=== PATIENT | female | born 1990 | race Caucasian/White ===

== ENCOUNTER 2022-12-21 09:48 | Outpatient (CLI) | payer OTHER, SELFPAY | END 2022-12-21 09:49 | disposition home or self-care (01) | PROVIDERS: PCP Physician Assistant Medical; Visit Provider Registered Nurse | DX: Z01.419 Encounter for gynecological examination (general) (routine) without abnormal findings (principal); Z13.6 Encounter for screening for cardiovascular disorders; Z13.1 Encounter for screening for diabetes mellitus | CPT/HCPCS: 80061; 82947 ==

== ENCOUNTER 2022-12-24 00:30 | Emergency (ER) | payer OTHER, SELFPAY ==
[2022-12-24] VITALS (14 sets, daily range): BP systolic 132–147; BP diastolic 74–110; PULSE 70–85; RESP 16–18; TEMP 36.7; O2SAT 97–100; BMI 22.5
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
== END 2022-12-24 02:50 | disposition home or self-care (01) ==
PROVIDERS: Emergency Provider Family Medicine; PCP Physician Assistant Medical
DX: S09.90XA Unspecified injury of head, initial encounter (principal); S16.1XXA Strain of muscle, fascia and tendon at neck level, initial encounter; V49.00XA Driver injured in collision with unspecified motor vehicles in nontraffic accident, initial encounter
CPT/HCPCS: 70450; 70486; 94761; 99284; 99291

== ENCOUNTER 2023-12-15 17:18 | Emergency (ER) | payer OTHER, SELFPAY ==
[2023-12-15 17:35] VITALS: BP 128/79; PULSE 90; RESP 18; TEMP 37.1; O2SAT 99; BMI 20.8
--- NOTE | 2023-12-15 18:40 | ED.GENADULT ---
HPI - General Adult General Date Seen: 12/15/23 Chief complaint: Chest Pain Stated complaint: would like an EKG Time Seen by Provider: 12/15/23 17:23 Source: patient Mode of arrival: ambulatory Limitations: no limitations History of Present Illness HPI narrative: Patient is a 33-year-old female presenting to the emergency department for multiple complaints. Her main complaint is chest pain and palpitations she has been having for several months now. She feels like it has gotten worse over the past week and half but does admit she stop smoking we had a 3 weeks ago and cigarettes a week and half ago. Today she states she thought it was the worst. She states she has been very anxious and she thinks this could be the cause of her symptoms. Admits she has been with a lot of anxiety but this not on any anxiety medication. She is very concerned she could be having electrolyte abnormalities his she thinks she is losing too much weight. She is afraid she could be developing refeeding syndrome. How states she while on vacation and was exposed to something who has flu. Was concerned about that because she has been having intermittent diarrhea for several months now. Think she should apply on weight over her vacation but actually lost weight. Denies fevers, chills, abdominal pain, headache, dizziness, lightheadedness, weakness, numbness. Related Data Home Medications Medication Instructions Recorded Confirmed cholecalciferol (vitamin D3) 25 25 mcg PO QDAY 06/22/22 12/15/23 mcg (1,000 unit) capsule prenat.vits,toribio,zza-jyhk-yawfq 1 tab PO QDAY 06/22/22 12/15/23 Allergies Allergy/AdvReac Type Severity Reaction Status Date / Time No Known Drug Allergies Allergy Verified 12/15/23 17:34 Review of Systems Status of ROS: Reports: 10 or more systems reviewed and unremarkable except as noted in History and below [facility] Medical History at early stage ?Z34.90 - Encounter for supervision of normal , unspecified, unspecified trimester (ICD-10) Periurethral laceration, delivered, current hospitalization ?O71.5 - Other obstetric injury to pelvic organs (ICD-10) Normal spontaneous vaginal delivery ?O80 - Encounter for full-term uncomplicated delivery (ICD-10) Surgical History History of tonsillectomy ?Z90.89 - Acquired absence of other organs (ICD-10) S/P ACL reconstruction ?Z98.890 - Other specified postprocedural states (ICD-10) Family History Mother High blood pressure High cholesterol Paternal Grandfather High cholesterol Maternal Grandfather Alcohol dependence Social History Smoking Status: Former smoker Second hand tobacco smoke exposure: No How often do you have a drink containing alcohol: never How often do you have six or more drinks on one occasion: Never AUDIT-C Alcohol total score: 0 Non-prescribed substance use: denies use Little interest or pleasure in doing things: not at all Feeling down, depressed, or hopeless: several days Exam Narrative: Exam Narrative: Const: Well-nourished, Well-developed, appears very anxious Eyes: PERRL, no conjunctival injection, and symmetrical lids HENT: Atraumatic external nose and ears. Moist mucous membranes. Neck: Symmetric, trachea midline, No thyromegaly. CVS: RRR, No murmurs or gallops. Peripheral pulses 2+ and equal in all extremities RESP: Unlabored respiratory effort. Clear to auscultation bilaterally. GI: Nontender/Nondistended, No rebound or guarding. MSK:Extremities w/o deformity, Normal Active ROM Skin: Warm, Dry. No rashes or lesions. Neuro: Normal Muscle tone, No focal neurological deficits. Psych: Awake, Alert, & Oriented x3. Appropriate mood and affect. Const: Vital Signs, click to edit/add: Vital Signs - 24 hr 12/15/23 17:35 Temperature 98.8 F Pulse Rate [Pulse Oximeter] 90 Respiratory Rate 18 Blood Pressure [Ri ght Upper Arm] 128/79 Pulse Oximetry 99 Oxygen Delivery Me thod Room Air Course Vital Signs Vital signs: Initial Vital Signs Temperature 98.8 F 12/15/23 17:35 Temperature Source Temporal Artery Scan 12/15/23 17:35 Pulse Rate 90 12/15/23 17:35 Pulse Rhythm Regular 12/15/23 17:35 Respiratory Rate 18 12/15/23 17:35 Blood Pressure 128/79 12/15/23 17:35 Blood Pressure Mean 95 12/15/23 17:35 Blood Pressure Position Sitting 12/15/23 17:35 Pulse Oximetry 99 12/15/23 17:35 Oxygen Delivery Method Room Air 12/15/23 17:35 Vital Signs Temperature 98.8 F 12/15/23 17:35 Pulse Rate 90 12/15/23 17:35 Respiratory Rate 18 12/15/23 17:35 Blood Pressure 128/79 12/15/23 17:35 Pulse Oximetry 99 12/15/23 17:35 Oxygen Delivery Method Room Air 12/15/23 17:35 Temperature 98.8 F 12/15/23 17:35 Pulse Rate 90 12/15/23 17:35 Respiratory Rate 18 12/15/23 17:35 Blood Pressure 128/79 12/15/23 17:35 Pulse Oximetry 99 12/15/23 17:35 Oxygen Delivery Method Room Air 12/15/23 17:35 Medical Decision Making [facility] Narrative Medical decision making narrative: Patient is a 33-year-old female presenting for multiple complaints. I explained to her that she is at low risk for refeeding syndrome and is a healthy weight. Explain to her that to get refeeding syndrome she has the starve herself significantly which she has not been doing per her description of her eating habits. She also does not appear to be too thin. We did do an EKG which showed no concerning abnormalities. She has no history of familial heart disease and explained to her also that she is at low risk for any heart conditions. The symptoms could all be related to her anxiety you which I explained she should get taking care of at her annual appointment with her primary care doctor she is having in 2 weeks. After extensive conversation I had with her explaining everything I also explained that I cannot definitively rule out any of the self we talked about without getting lab work. After giving her time to think of if she wants lab work or not she decided against it since she will be getting lab work done in 2 weeks. I informed her that they typically do not check troponins outpatient and she understands. I explained to her the significance of the troponin test and she is comfortable without doing it at this time. This seems reasonable considering the symptoms have been going on for an extended period of time and with her low risk I radiate do not believe she is having a cardiac event. I am also comfortable not checking her electrolytes as she appears otherwise healthy and the seems unlikely to be abnormal not to mention to the symptoms have been going on for relatively extended period of time and she is having a annual physical with lab work done in 2 weeks. She will be discharged home at this time. ECG Data Attestation: I personally reviewed and interpreted this ECG as follows: Prior ECG tracings: not available for review Interpretation: Normal sinus rhythm with a rate of 73 beats per minute, normal intervals, normal axis, no ST or T-wave abnormalities Discharge Plan Discharge Clinical Impression: Anxiety Patient Disposition: Home, Self-Care Condition: Stable Instructions: Anxiety (ED) Additional Instructions: As explain to I cannot definitively rule out any other concerns without lab work but I do think there relatively low risk at this time. At your appointment in a few weeks she should be able to get most of lab work done. The only lab work that cannot be done outpatient from my understanding is the troponin, which would check your heart. Considering the length of your symptoms I do not believe this is heart disease and is all anxiety related, but he should return to emergency department for re-evaluation for any new or worsening symptoms. Prescriptions: No Action prenat.vits,toribio,jjp-rxrh-jrcps Tablet 1 tab PO QDAY cholecalciferol (vitamin D3) 25 mcg (1,000 unit) capsule 25 mcg PO QDAY Rx Instructions: unknown strength Follow Up/Referrals: Magnolia Espinoza PA-C [Primary Care Provider] - Stand Alone Forms: [employer] Info Instructions
[2023-12-15 18:55] VITALS: BP 128/79; PULSE 90; RESP 18; TEMP 37.1
== END 2023-12-15 18:57 | disposition home or self-care (01) ==
PROVIDERS: Emergency Provider Student in an Organized Health Care Education/Training Program; PCP Physician Assistant Medical
DX: F41.9 Anxiety disorder, unspecified (principal)
CPT/HCPCS: 93005; 99283

== ENCOUNTER 2024-03-07 10:31 | Emergency (ER) | payer OTHER, MEDICAID, SELFPAY ==
[2024-03-07 10:41] VITALS: BP 138/90; PULSE 93; RESP 16; TEMP 36.4; O2SAT 98
--- NOTE | 2024-03-07 10:59 | CRLHL7_ITS ---
For Patients: As a result of the Cures Act, medical imaging exams and procedure reports are released immediately into your electronic medical record. You may view this report before your referring provider. If you have questions, please contact your health care provider. INDICATION: First trimester scan, establish dates. Right lower abdominal pain. COMPARISON: None. TECHNIQUE: Real-time almodovar-scale imaging of the pelvis was performed. FINDINGS: Sonographic imaging demonstrates a twin living intrauterine gestation, diamniotic/dichorionic. Twin A: The embryo demonstrates a regular cardiac rate measuring 142 beats per minute. The embryo`s crown-rump length measurement of 1.2 cm corresponds to a gestational age of 7 weeks 2 days with a sonographic due date of 10/22/2024. There is a normal-appearing yolk sac. There are no gross abnormalities noted within the embryo at this early state of development. The gestational sac has a normal appearance. There is no evidence of a perigestational hemorrhage. The amount of fluid within the sac appears appropriate for gestational age. Twin B: The embryo demonstrates a regular cardiac rate measuring 130 beats per minute. The embryo`s crown-rump length measurement of 1.1 cm corresponds to a gestational age of 7 weeks 1 day with a sonographic due date of 10/23/2024. There is a normal-appearing yolk sac. There are no gross abnormalities noted within the embryo at this early state of development. The gestational sac has a normal appearance. There is no evidence of a perigestational hemorrhage. The amount of fluid within the sac appears appropriate for gestational age. The cervix is closed. The myometrium appears normal. Corpus luteal cyst right ovary. There are no suspicious fluid collections noted in the cul-de-sac. IMPRESSION: Twin A: Gestational age calculated at with a sonographic due date of . Twin B: Gestational age calculated at with a sonographic due date of . Dictated by Moy Gray MD @ 03/07/2024 12:44:08 PM (Electronically Signed)
[2024-03-07] MEDS: 0.9 % SODIUM CHLORIDE 1000 ml 1,000 ML IV (11:15)
[2024-03-07 11:24] LABS: Appearance Urine Clear (Clear); Bilirubin Urine Negative (Negative); Blood Urine Negative (Negative); Color Urine Yellow (Yellow); Glucose Urine Negative (Negative); Ketones Urine Negative (Negative); Leukocyte Esterase Urine Negative (Negative); Nitrite Urine Negative (Negative); Protein Urine Negative (Negative); Urobilinogen Urine 0.2 (0.2-1.0); pH Urine 6.5 (5.0-8.5)
[2024-03-07 11:25] LABS: Basophils Percent Auto 0.2 % (0.0-3.0); Eosinophils Percent Auto 0.2 % (0.0-7.0); Hematocrit 39.5 % (33.0-51.0); Hemoglobin* 13.2 gm/dL (12.0-16.0); Immature Granulocytes Pct Auto 0.2 %; Lymphocytes Percent Auto 13.5 % (20-44); Mean Corpuscular HGB Conc 33 gm/dL (32-36); Mean Corpuscular Hemoglobin 31 pg (26-34); Mean Corpuscular Volume 92 fL (80-100); Monocytes Percent Auto 7.1 % (0.0-11.0); Neutrophils Percent Auto 78.8 % (42.0-72.0); Platelet Count* 223 K/uL (140-440); Red Blood Count 4.31 m/uL (4.00-5.20); White Blood Count* 11.57 K/uL (4.50-11.00)
[2024-03-07 11:26] LABS: Slide Review Reflex No
[2024-03-07 11:32] LABS: RBC Urine 0-2 (0-2); WBC Urine 0-2 (0-5)
[2024-03-07 11:39] LABS: Albumin* 5.1 g/dL (3.3-5.0)
[2024-03-07 11:40] LABS: Chloride* 103 mmol/L (96-114); Potassium* 4.1 mmol/L (3.6-5.1); Sodium* 137 mmol/L (135-149)
[2024-03-07 11:42] LABS: Bilirubin Direct* 0.3 mg/dL (0.0-0.5); Bilirubin Total* 0.5 mg/dL (0.1-1.5)
--- NOTE | 2024-03-07 11:42 | ED_ITS ---
HPI - General Adult General Chief complaint: OB/Uterine Contractions Stated complaint: 8 wks , cramping Time Seen by Provider: 03/07/24 10:52 Source: patient Mode of arrival: ambulatory Limitations: no limitations History of Present Illness HPI narrative: 33-year-old female, in almost 9 weeks gestation coming in today complaining of abdominal cramping. Most of the cramping is located in the right lower quadrant. Patient has not yet had her 1st appointment. She denies any fevers or chills, she has been nauseated and vomiting throughout her , but all that stopped this morning. She states she has been eating well. She denies any urinary symptoms such as increased frequency, urgency or dysuria. She denies any upper abdominal pain. She denies any vaginal bleeding or discha rge. Related Data Home Medications ?Medication ?Instructions ?Recorded ?Confirmed cholecalciferol (vitamin D3) 25 25 mcg PO QDAY 06/22/22 12/26/23 mcg (1,000 unit) capsule prenat.vits,toribio,uzy-jnhg-zymic 1 tab PO QDAY 06/22/22 03/07/24 magnesium 200 mg tablet 200 mg PO QDAY 12/26/23 12/26/23 Allergies Allergy/AdvReac Type Severity Reaction Status Date / Time No Known Drug Allergies Allergy Verified 03/07/24 10:41 Review of Systems Status of ROS: Reports: 10 or more systems reviewed and unremarkable except as noted in History and below [facility] Medical History at early stage ?Z34.90 - Encounter for supervision of normal , unspecified, unspecified trimester (ICD-10) Periurethral laceration, delivered, current hospitalization ?O71.5 - Other obstetric injury to pelvic organs (ICD-10) Normal spontaneous vaginal delivery ?O80 - Encounter for full-term uncomplicated delivery (ICD-10) Surgical History History of tonsillectomy ?Z90.89 - Acquired absence of other organs (ICD-10) S/P ACL reconstruction ?Z98.890 - Other specified postprocedural states (ICD-10) Family History Mother High blood pressure High cholesterol Paternal Grandfather High cholesterol Maternal Grandfather Alcohol dependence Social History Smoking Status: Former smoker Do you use any of these nicotine containing products: None Second hand tobacco smoke exposure: No How often do you have a drink containing alcohol: never How often do you have six or more drinks on one occasion: Never AUDIT-C Alcohol total score: 0 Non-prescribed substance use: denies use Little interest or pleasure in doing things: not at all Feeling down, depressed, or hopeless: several days Exam Narrative: Exam Narrative: Well-nourished well-developed patient in no acute distress. Alert and oriented. Answers questions appropriately. Mood and affect are appropriate. Thoughts are goal oriented and rational. No tangential or magical thinking noted. Patient speaks in full sentences without needing to catch her breath. HEENT: Normocephalic atraumatic. Pupils are equally round reactive to light. Extraocular muscles are intact. Conjunctivae are moist without any icterus noted. Moist mucous membranes. Posterior pharynx is normal. Neck is soft without any lymphadenopathy or thyromegaly. No masses are appreciated. Cardiovascular: Heart is regular rate and rhythm S1 and S2 are present without any murmurs. Lungs: Clear to auscultation bilaterally no wheezes rhonchi or rales are appreciated. Patient takes deep breaths without any discomfort. Abdomen: Soft and nondistended with normal bowel sounds. No guarding or rebound. No masses or organomegaly appreciated. Patient has mild she right lower quadrant discomfort, no pain at McBurney's point. Negative Pierre sign. Extremities: Bilateral lower extremities are without edema. Normal DP and PT pulses. Skin: Well perfused without any obvious rashes. Const: Vital Signs, click to edit/add: Vital Signs - 24 hr 03/07/24 10:41 Temperature 97.6 F Pulse Rate [Pulse Oximeter] 93 Respiratory Rate 16 Blood Pressure [Ri ght Upper Arm] 138/90 H Pulse Oximetry 98 Oxygen Delivery Me thod Room Air Course Course ED Course: Patient's lab work is unremarkable. HCG is greater than 100,000, consistent with her current . Ultrasound shows a right-sided ovarian cyst, two intrauterine pregnancies. Vital Signs Vital signs: Initial Vital Signs Temperature 97.6 F 03/07/24 10:41 Temperature Source Temporal Artery Scan 03/07/24 10:41 Pulse Rate 93 03/07/24 10:41 Respiratory Rate 16 03/07/24 10:41 Blood Pressure 138/90 H 03/07/24 10:41 Blood Pressure Mean 106 H 03/07/24 10:41 Blood Pressure Position Sitting 03/07/24 10:41 Pulse Oximetry 98 03/07/24 10:41 Oxygen Delivery Method Room Air 03/07/24 10:41 Vital Signs Temperature 97.6 F 03/07/24 10:41 Pulse Rate 93 03/07/24 10:41 Respiratory Rate 16 03/07/24 10:41 Blood Pressure 138/90 H 03/07/24 10:41 Pulse Oximetry 98 03/07/24 10:41 Oxygen Delivery Method Room Air 03/07/24 10:41 Temperature 97.6 F 03/07/24 10:41 Pulse Rate 93 03/07/24 10:41 Respiratory Rate 16 03/07/24 10:41 Blood Pressure 138/90 H 03/07/24 10:41 Pulse Oximetry 98 03/07/24 10:41 Oxygen Delivery Method Room Air 03/07/24 10:41 Medications Administered Medications: Discontinued Medications Generic Name Dose Route Start Last Admin Trade Name Freq PRN Reason Stop Dose Admin Sodium Chloride 1,000 mls @ 1,000 mls/hr 03/07/24 11:00 03/07/24 12:18 0.9 % Sodium Chloride 1000 Ml IV 03/07/24 11:59 Infused .Q1H CATHY Infusion Medical Decision Making MDM Narrative Medical decision making narrative: 33-year-old female the at approximately 7 weeks gestation based on ultrasound, with right lower quadrant cramping. appears to be progressing normally. Cyst in the right ovary could be consistent with her symptoms. At this point we discussed symptomatic management follow-up with OBGYN. Lab Data Lab results reviewed: Yes I reviewed the patient's lab results Labs: Lab Results 03/07/24 Range/Units 11:16 WBC 11.57 H (4.50-11.00) K/uL RBC 4.31 (4.00-5.20) m/uL Hgb 13.2 (12.0-16.0) gm/dL Hct 39.5 (33.0-51.0) % MCV 92 (80-100) fL MCH 31 (26-34) pg MCHC 33 (32-36) gm/dL RDW Coeff of Yon 12.0 (11.5-15.5) % Plt Count 223 (140-440) K/uL Neut % (Auto) 78.8 H (42.0-72.0) % Lymph % (Auto) 13.5 L (20-44) % Winkler % (Auto) 7.1 (0.0-11.0) % Eos % (Auto) 0.2 (0.0-7.0) % Baso % (Auto) 0.2 (0.0-3.0) % Neut # (Auto) 9.10 H (1.7-7.0) K/uL Lymph # (Auto) 1.60 (0.90-2.90) K/uL Winkler # (Auto) 0.80 (0.00-0.90) K/UL Eos # (Auto) 0.00 (0.00-0.50) K/uL Baso # (Auto) 0.00 (0.00-0.30) K/uL Abs Immat Gran (auto) 0.00 (0.00-0.30) K/uL Imm/Tot Granulo (auto) 0.2 % Sodium 137 (135-149) mmol/L Potassium 4.1 (3.6-5.1) mmol/L Chloride 103 (96-114) mmol/L Carbon Dioxide 24 (20-32) mmol/L Anion Gap 10 (7-15) mEq/L BUN 12 (5-24) mg/dL Creatinine 0.6 (0.5-1.5) mg/dL Estimated GFR 122 ml/min Glucose 83 (60-115) mg/dL Calcium 9.7 (8.4-10.6) mg/dL Total Bilirubin 0.5 (0.1-1.5) mg/dL Direct Bilirubin 0.3 (0.0-0.5) mg/dL AST 22 (12-35) U/L ALT 19 (4-35) U/L Alkaline Phosphatase 42 (40-150) U/L C-Reactive Protein < 0.5 L (0.5-1.0) mg/dL Total Protein 7.7 (6.0-8.3) g/dL Albumin 5.1 H (3.3-5.0) g/dL Lipase 88 (23-300) U/L HCG, Quant 186696.00 mIU/mL Urine Color Yellow (Yellow) Urine Appearance Clear (Clear) Urine pH 6.5 (5.0-8.5) Ur Specific [place] 1.010 (1.000-1.030) Urine Protein Negative (Negative) Urine Glucose (UA) Negative (Negative) Urine Ketones Negative (Negative) Urine Blood Negative (Negative) Urine Nitrite Negative (Negative) Urine Bilirubin Negative (Negative) Urine Urobilinogen 0.2 (0.2-1.0) Ur Leukocyte Esterase Negative (Negative) Urine RBC 0-2 (0-2) Urine WBC 0-2 (0-5) Ur Squamous Epith Cells None (None-Few) Urine Bacteria None (None) Imaging Data US - abdomen: Attestation: I have reviewed the pertinent imaging results. Radiologist's impression: Real-time almodovar-scale imaging of the pelvis was performed. FINDINGS: Sonographic imaging demonstrates a twin living intrauterine gestation, diamniotic/dichorionic. Twin A: The embryo demonstrates a regular cardiac rate measuring 142 beats per minute. The embryo`s crown-rump length measurement of 1.2 cm corresponds to a gestational age of 7 weeks 2 days with a sonographic due date of 10/22/2024. There is a normal-appearing yolk sac. There are no gross abnormalities noted within the embryo at this early state of development. The gestational sac has a normal appearance. There is no evidence of a perigestational hemorrhage. The amount of fluid within the sac appears appropriate for gestational age. Twin B: The embryo demonstrates a regular cardiac rate measuring 130 beats per minute. The embryo`s crown-rump length measurement of 1.1 cm corresponds to a gestational age of 7 weeks 1 day with a sonographic due date of 10/23/2024. There is a normal-appearing yolk sac. There are no gross abnormalities noted within the embryo at this early state of development. The gestational sac has a normal appearance. There is no evidence of a perigestational hemorrhage. The amount of fluid within the sac appears appropriate for gestational age. The cervix is closed. The myometrium appears normal. Corpus luteal cyst right ovary. There are no suspicious fluid collections noted in the cul-de-sac. IMPRESSION: Twin A: Gestational age calculated at with a sonographic due date of . Twin B: Gestational age calculated at with a sonographic due date of . Discharge Plan Discharge Clinical Impression: Twin , Abdominal cramping Patient Disposition: Home, Self-Care Condition: Stable Additional Instructions: appears to be progressing normally. This time recommend gentle heating pad to the lower abdomen to help with cramps. Follow-up with OBGYN. Prescriptions: No Action prenat.vits,toribio,whz-xgwr-wxsjg Tablet 1 tab PO QDAY cholecalciferol (vitamin D3) 25 mcg (1,000 unit) capsule 25 mcg PO QDAY Rx Instructions: unknown strength magnesium 200 mg tablet 200 mg PO QDAY Follow Up/Referrals: Magnolia Espinoza PA-C [Primary Care Provider] - Stand Alone Forms: [employer] Info Instructions
[2024-03-07 11:43] LABS: Alanine Aminotransferase* 19 U/L (4-35); Alkaline Phosphatase* 42 U/L (40-150); Aspartate Amino Transferase* 22 U/L (12-35); Creatinine* 0.6 mg/dL (0.5-1.5); Estimated Glomerular Filt Rate 122 ml/min; Lipase* 88 U/L (23-300); Total Protein* 7.7 g/dL (6.0-8.3)
[2024-03-07 11:44] LABS: Anion Gap 10 mEq/L (7-15); Blood Urea Nitrogen* 12 mg/dL (5-24); Calcium* 9.7 mg/dL (8.4-10.6); Carbon Dioxide* 24 mmol/L (20-32); Glucose* 83 mg/dL (60-115)
[2024-03-07 11:48] LABS: C Reactive Protein* < 0.5 mg/dL (0.5-1.0)
--- OUTSIDE RECORDS SUMMARY | 2024-03-07 11:50 | XMS_ITS | Clinical Summary ---
Author Organization [facility] Address [address] [place] [address] Care Team Providers Care Hoop Driving Machine Operator Helper Name Role Phone No Ref-Primary, Physician Primary Care Provider Paulino Barker MD Unavailable [phone] Allergies Active Allergy Reactions Criticality Noted Date Comments Penicillins Rash Low 02/15/2016 Medications Medication Sig Dispensed Refills Start Date End Date Status Vit-Fe Fumarate-FA ( MULTIVITAMIN W/IRON) 27-0.8 MG tablet Take 1 tablet by mouth daily Active docusate sodium (COLACE) 100 MG tablet Take 100 mg by mouth daily Active aspirin (ASA) 81 MG chewable tablet Take 81 mg by mouth daily Active Active Problems Problem Noted Date Diagnosed Date (spontaneous vaginal delivery) 09/19/2019 Immunizations Name Administration Dates Next Due DTAP (<7y) 01/22/1997, 3,04/07/1992,1991,1991 HEPATITIS A (PEDS 12M-18Y) 07/26/2007,12/19/2006 HIB (PRP-T) 02/01/1993,04/07/1992,01/21/1992 Hepatitis B, Peds 09/18/1997,03/11/1997,01/22/19 97 Influenza (IIV3) PF 09/14/2008,07/26/2007 Influenza Vaccine >6 months,quad, PF 07/21/2021, 06/04/2020,07/01/2019 MMR 01/22/1997,02/01/1993 Meningococcal ACWY (Menactra??) 04/18/2006 Poliovirus, inactivated (IPV) 01/22/1997 ,04/05/1993,01/21/1992,1991 TDAP (Adacel,Boostrix) 05/21/2019 Varicella 04/06/2009,03/08/1999 Family History Medical History Relation Comments Substance Abuse Maternal Grandfather Depression Mother Diabetes Mother Hyperlipidemia Mother Hypertension Mother Obesity Mother Unknown/Adopted Mother Uterine Cancer Other Relation Status Comments Maternal Grandfather Mother Other Social History Tobacco Use Types Packs/Day Years Used Date Smoking Tobacco: Never Cigarettes Qu it: 05/19/2021 Smokeless Tobacco: Never Tobacco Cessation:Counseling Given: No Alcohol Use Standard Drinks/Week Comments Not Currently 0 (1 standard drink = 0.6 oz pur e alcohol) social PHQ-2 Answer Date Recorded PHQ-2 Score 0 06/06/2021 Adolescent Education Answer Date Record ed Getting School Help Needed Not on file 06/08 Sex and Gender Information Value Date Recorded Sex Assigned at Female 05/30/2021 7:49 AM CDT Gender Identity Female 05/30/2021 7:49 AM CDT Sexual Orientation Straight 05/30/2021 7: 49 AM CDT Last Filed Vital Signs Vital Sign Reading Time Taken Comments Blood Pressure 112/64 09/06/2021 1:15 PM BARREL MAKER Pulse 81 06/23/2021 9:40 AM CDT Temperature 36.9 ??C (98.5 ??F) 02/15/2016 6:32 PM CD T Respiratory Rate - - Oxygen Saturation 99% 02/15/2016 6:32 PM CDT Inhaled Oxygen Concentration - - Weight 70.3 kg (154 lb 14.4 oz) 09/06/2021 1:15 PM BARREL MAKER Height 166.4 cm (5' 5.5) 07/21/2021 9:49 AM CDT Body Mass Index 25.38 07/21/2021 9:49 AM CDT Plan of Treatment Health Maintenance Due Date Last Done Comments ADVANCE CARE PLANNING 1991 ANNUAL REVIEW OF HM ORDERS 1991 YEARLY PREVENTIVE VISIT 1991 COVID-19 Vaccine ( season) 2023 08/22/2021, 01/19/2021, 12/30/2020 PHQ-2 (once per calendar year) 2023 06/06/2021, 09/19/2019, 09/19/2019 INFLUENZA VACCINE (Season Ended) 2024 07/21/2021, 06/04/2020, 07/01/2019, Additional history exists PAP 06/23/2024 06/23/2021, 04, 01/14/2019, Additional history exists DTAP/TDAP/TD IMMUNIZATION (8 - Td or Tdap) 11/25/2031 11/24/2021, 05/21/2019, 01/22/1997, Additional history exists IPV IMMUNIZATION Completed 01/22/1997, , 01/21/1992, Additional history exists HEPATITIS B IMMUNIZATION Completed 998, 03/11/1997, 01/22/1997 MENINGITIS IMMUNIZATION Aged Out 04/18/2006 No l onger eligible based on patient's age to complete this topic HEPATITIS C SCREENING Completed 06/23/2021 HIV SCREENING Completed 06/23/2021 HPV IMMUNIZATION Aged Out No longer e ligible based on patient's age to complete this topic Pneumococcal Vaccine: Pediatrics (0 to 5 Years) and At-Risk Patients (6 to 64 Years) Aged Out No longer eligible based on patient's age to complete this topic RSV MONOCLONAL ANTIBODY Aged Out No l onger eligible based on patient's age to complete this topic Procedures Procedure Name Priority Date/Time Associated Diagnosis Comments HIV ANTIGEN ANTIBODY COMBO Routine 06/23/2021 10:29 AM CDT care, subsequent in first trimester HEPATITIS C ANTIBODY Routine 06/23/2021 10:29 AM CDT care, subsequent in first trimester GYNECOLOGIC CYTOLOGY Routine 06/23/2021 9:53 AM CDT Screening for cervical cancer care, subsequent in first trimester from Last 3 Months or Most Recently Relevant to Health Maintenance Results * HIV Antigen Antibody Combo (06/23/2021 10:29 AM CDT) HIV Antigen Antibody Combo Nonreactive Nonreactive 06/23/2021 9:[address] [facility] Comment:HIV-1 p24 Ag & HIV-1 /HIV-2 Ab Not Detected Blood BLOOD SPECIMEN / Unknown Venipuncture / Unknown 06/23/2021 10:29 AM CDT 06/23/2021 10:30 AM CDT Comfort Louise MD LAB - BLOOD ORDERABLES [facility] Lab [address] [facility], [address] [address], [facility] [phone] * Hepatitis C antibody (06/23/2021 10:29 AM CDT) Pathologist [facility] Hepatitis C Antibody Nonreactive Nonreactive 06/23/2021 9:18 PM CDT [facility] Blood BLOOD SPECIMEN / Unknown Venipuncture / Unknown 06/23/2021 10:29 AM CDT 06/23/2021 10:30 AM CDT Narrative [facility] - 06/23/2021 9:18 PM CDT Assay performance characteristics have not been established for newborns, infants, and children. Comfort Louise MD LAB - BLOOD ORDERABLES [facility] [address] [facility], [address] [address], [facility] [phone] * Pap imaged thin layer screen reflex to HPV if ASCUS - recommend age 25 - 29 (06/23/2021 9:53 AM CDT) Interpretation Negative for Intraepithelial Lesion or Malignancy (NILM) 06/27/2021 12:[address] [facility] Specimen Adequacy Satisfactory for evaluation, endocervical/vaz sformation zone component absent 06/27/2021 12:[address] [facility] Clinical Information 06/27/2021 12:[address] [facility] LMP/Menopause Date 03/09/2021 06/27/2021 12:[address] [facility] Reflex Testing Yes if ASCUS 06/27/20 12:[address] [facility] Previous Abnormal? No 06/27/2021 12:[address] [facility] Performing Labs The technical component of this testing was completed at [facility] 06/27/2021 12:[address] [facility] Brushing CERVIX UTERI STRUCTURE / Unknown 06/23/2021 9:53 AM CDT 06/23/2021 10:44 AM CDT Comment:Pap imaged thin laye r screen reflex to HPV if ASCUS - recommend age 25 - 29Answer REQUIRED pap questions below:LMP (date): Patient's last menstrual period was 03/09/2021 (exact date).PAP SOURCE: Cervical - EndocervicalPREVIOUS PAP RESULTS: No results found for: PAPPERTINENT CLINICAL HISTORY: Comfort GONZALEZ AP [facility] [address] [place] [address], [facility] [phone] from Last 3 Months or Most Recently Relevant to Health Maintenance Care Teams Hoop Driving Machine Operator Helper Relationship Specialty Start Date End Date No Ref-Primary, Physician PCP - General 09/19/19 Paulino Barker MD [address] [address] Assigned PCP 08/25/21
--- OUTSIDE RECORDS SUMMARY | 2024-03-07 11:51 | XMS_ITS | Encounter Summary ---
Author Organization [facility] Address [address] [place] [address] Care Team Providers Care Manager Post Name Role Phone No Ref-Primary, Physician Primary Care Provider Comfort Louise MD Unavailable [phone] Gretta Resendez MD Unavailable [phone] Paulino Barker MD Unavailable Chuckie Perry MD Unavailable [phone] Encounter Details Date Type Department Care Team (Late st Contact Info) Description 06/10/2021 MyC Medical Advice [facility] [address] [place] [phone] Comfort Louise MD [address] [place] [address] Social History Tobacco Use Types Packs/Day Years Used Date Smoking Tobacco: Passive Smo ke Exposure - Never Smoker Cigarettes Quit: Smokeless Tobacco: Never Comments:[employer]. Mainly bu mmed them from co-workers but stopped working with them in November 2019. Alcohol Use Standard Drinks/Week Comments Not Currently 0 (1 standard drink = 0.6 oz pur e alcohol) social PHQ-2 Answer Date Recorded PHQ-2 Score 0 06/06/2021 Comments Yes Sex and Gender Information Value Date Recorded Sex Assigned at Female 05/30/2021 7:49 AM CDT Gender Identity Female 05/30/2021 7:49 AM CDT Sexual Orientation Straight 05/30/2021 7: 49 AM CDT COVID-19 Exposure Response Date Recorded In the last month, have you been in contact with someone who was confirmed or suspected to have Coronavirus / COVID-19? Unable to assess 06/06/2021 9:45 AM CDT documented as of this encounter Plan of Treatment Not on file documented as of this encounter Visit Diagnoses Not on filedocumented in this encounter Additional Health Concerns Assessment Noted Time PHQ-9 Depression Total Score: 3 09/19/19 10:37 AM ENGINEERING AND OPERATIONS DIRECTOR documented as of this encounter Care Teams Manager Post Relationship Specialty Start Date End Date No Ref-Primary, Physician PCP - General 09/19/19 Comfort Louise MD [address] [place] [address] Assigned OBGYN Provider 06/26/21 Gretta Resendez MD [address] [place] [address] Assigned OBGYN Provider 07/24/21 3 Paulino Barker MD [address] [address] Assigned PCP 08/25/21 Chuckie Perry MD [address] [place] [address] Assigned OBGYN Provider 01/20/23 documented as of this encounter
--- OUTSIDE RECORDS SUMMARY | 2024-03-07 11:51 | XMS_ITS | Encounter Summary ---
Author Organization [facility] Address [address] [place] [address] Care Team Providers Care Electronic Induction Hardener Name Role Phone No Ref-Primary, Physician Primary Care Provider Gretta Resendez MD Unavailable [phone] Paulino Barker MD Unavailable [phone] Chuckie Perry MD Unavailable Encounter Details Date Type Department Care Team (Late st Contact Info) Description 07/26/2021 MyC Medical Advice [facility] [address] [place] [address] Gretta Resendez MD [address] [place] [address] Social History Tobacco Use Types Packs/Day Years [...] or suspected to have Coronavirus / COVID-19? No / Unsure 07/25/2021 9:32 AM LICENSED GUIDE documented as of this encounter Plan of Treatment Not on file documented as of this encounter Visit Diagnoses Not on filedocumented in this encounter Additional Health Concerns Assessment Noted Time PHQ-9 Depression Total Score: 3 09/19/19 20 10:37 AM LICENSED GUIDE documented as of this encounter Care Teams Electronic Induction Hardener Relationship Specialty Start Date End Date No Ref-Primary, Physician PCP - General 09/19/19 Gretta Resendez MD [address] [place] [address] Assigned OBGYN Provider 07/24/21 3 Paulino Barker MD [address] [address] Assigned PCP 08/25/21 Chuckie Perry MD [address] [place] [address] Assigned OBGYN Provider 01/20/23 documented as of this encounter
--- OUTSIDE RECORDS SUMMARY | 2024-03-07 11:51 | XMS_ITS | Encounter Summary ---
Author Organization [facility] Address [address] [place] [address] Care Team Providers Care Deputy Manager Name Role Phone No Ref-Primary, Physician Primary Care Provider Comfort Louise MD Unavailable [phone] Gretta Resendez MD Unavailable [phone] Paulino Barker MD Unavailable Chuckie Perry MD Unavailable Encounter Details Date Type Department Care Team (Late st Contact Info) Description 06/14/2021 MyC Medical Advice [facility] [address] [place] [phone] Comfort Louise MD [address] [place] [address] Social History Tobacco Use Types [...] Depression Total Score: 3 09/19/19 10:37 AM THERMOSTAT MECHANIC documented as of this encounter Care Teams Deputy Manager Relationship Specialty Start Date End Date No Ref-Primary, Physician PCP - General 09/19/19 Comfort Louise MD [address] [place] [address] Assigned OBGYN Provider 06/26/21 Gretta Resendez MD [address] [place] [address] Assigned OBGYN Provider 07/24/21 3 Paulino Barker MD [address] [address] Assigned PCP 08/25/21 Cuhckie Perry MD [address] [place] [address] Assigned OBGYN Provider 01/20/23 documented as of this encounter
--- OUTSIDE RECORDS SUMMARY | 2024-03-07 11:51 | XMS_ITS | Encounter Summary ---
Author Organization [facility] Address [address] [place] [address] Care Team Providers Care Specialty Department Supervisor Name Role Phone No Ref-Primary, Physician Primary Care Provider Comfort Louise MD Unavailable Gretta Resendez MD Unavailable [phone] Paulino Barker MD Unavailable [phone] Chuckie Perry MD Unavailable [phone] Reason for Visit * Reason Onset Date Comments Results 06/24/2021 Encounter Details Date Type Department Care Team (Late st Contact Info) Description 06/24/2021 [facility] Medical Advice [facility] [address] [place] [address] Comfort Louise MD [address] [place] [address] Results Social History Tobacco Use Types Packs/Day Years [...] have Coronavirus / COVID-19? No / Unsure 06/23/2021 9:13 AM CDT documented as of this encounter Plan of Treatment Not on file documented as of this encounter Visit Diagnoses Not on filedocumented in this encounter Additional Health Concerns Assessment Noted Time PHQ-9 Depression Total Score: 3 09/19/19 10:37 AM MAILING SPECIALIST documented as of this encounter Care Teams Specialty Department Supervisor Relationship Specialty Start Date End Date No Ref-Primary, Physician PCP - General 09/19/19 Comfort Louise MD [address] [place] [address] Assigned OBGYN Provider 06/26/21 Gretta Resendez MD [address] [place] [address] Assigned OBGYN Provider 07/24/21 3 Paulino Barker MD [address] [address] Assigned PCP 08/25/21 Chuckie Perry MD [address] [place] [address] Assigned OBGYN Provider 01/20/23 documented as of this encounter
--- OUTSIDE RECORDS SUMMARY | 2024-03-07 11:51 | XMS_ITS | Encounter Summary ---
Author Organization [place] Address [address] [place] [address] Care Team Providers Care Publications Designer Name Role Phone No Ref-Primary, Physician Primary Care Provider Marlene Dolan MD Unavailable [phone] Comfort Louise MD Unavailable [phone] Gretta Resendez MD Unavailable [phone] Paulino Barker MD Unavailable Chuckie Perry MD Unavailable Encounter Details Date Type Department Care Team (Late st Contact Info) Description 11/07/2019 MyC Medical Advice [facility] Women[facility] [address] [place] [address] Marlene Dolan MD [address], [address] [place] [address] Social History Tobacco Use Types Packs/Day Years Used Date Smoking Tobacco: Never Smokeless Tobacco: Never Alcohol Use Standard Drinks/Week Comments Yes 0 (1 standard drink = 0.6 oz pur e alcohol) social PHQ-2 Answer Date Recorded PHQ-2 Score 0 09/19/2019 Sex and Gender Information Value Date Recorded Sex Assigned at Female 05/30/2021 7:49 AM CDT Gender Identity Female 05/30/2021 7:49 AM CDT Sexual Orientation Straight 05/30/2021 7: 49 AM CDT documented as of this encounter Plan of Treatment Not on file documented as of this encounter Visit Diagnoses Not on filedocumented in this encounter Additional Health Concerns Assessment Noted Time PHQ-9 Depression Total Score: 3 09/19/19 20 10:37 AM SOCIOLOGY PROFESSOR documented as of this encounter Care Teams Publications Designer Relationship Specialty Start Date End Date No Ref-Primary, Physician PCP - General 09/19/19 Marlene Dolan MD [address], [address] [address] Assigned OBGYN Provider 07/09/20 1 Comfort Louise MD [address] [place] [address] Assigned OBGYN Provider 06/26/21 Gretta Resendez MD [address] [place] [address] Assigned OBGYN Provider 07/24/21 3 Paulino Barker MD [address] [address] Assigned PCP 08/25/21 Chuckie Perry MD [address] [place] [address] Assigned OBGYN Provider 01/20/23 documented as of this encounter
--- OUTSIDE RECORDS SUMMARY | 2024-03-07 11:51 | XMS_ITS | Encounter Summary ---
Author Organization [place] Address [address] [place] [address] Care Team Providers Care Food Porter Name Role Phone No Ref-Primary, Physician Primary Care Provider Comfort Louise MD Unavailable [phone] Gretta Resendez MD Unavailable [phone] Paulino Barker MD Unavailable [phone] Chuckie Perry MD Unavailable Encounter Details Date Type Department Care Team (Late st Contact Info) Description 07/18/2021 MyC Medical Advice [facility] Women's [address] [place] [address] Gretta Resendez MD [address] [place], [place] [address] Social History Tobacco Use Types Packs/Day Years [...] have Coronavirus / COVID-19? No / Unsure 07/21/2021 9:39 AM CDT documented as of this encounter Plan of Treatment Not on file documented as of this encounter Visit Diagnoses Not on filedocumented in this encounter Additional Health Concerns Assessment Noted Time PHQ-9 Depression Total Score: 3 09/19/19 20 10:37 AM MECHANICAL DEVELOPER PROVER documented as of this encounter Care Teams Food Porter Relationship Specialty Start Date End Date No Ref-Primary, Physician PCP - General 09/19/19 Comfort Louise MD [address] [place] [address] Assigned OBGYN Provider 06/26/21 Gretta Resendez MD [address] [place] [address] Assigned OBGYN Provider 07/24/21 3 Paulino Barker MD [address] [address] Assigned PCP 08/25/21 Chuckie Perry MD [address] [place] [address] Assigned OBGYN Provider 01/20/23 documented as of this encounter
--- OUTSIDE RECORDS SUMMARY | 2024-03-07 11:51 | XMS_ITS | Encounter Summary ---
Author Organization [place] Address [address] [place] [address] Care Team Providers Care Dock Manager Name Role Phone No Ref-Primary, Physician Primary Care Provider Comfort Louise MD Unavailable [phone] Gretta Resendez MD Unavailable [phone] Paulino Barker MD Unavailable [phone] Chuckie Perry MD Unavailable Encounter Details Date Type Department Care Team (Late st Contact Info) Description 07/06/2021 MyC Medical Advice [facility] [address] [place] [phone] Comfort Louise MD [address] [place] [address] Social History Tobacco Use Types [...] Depression Total Score: 3 09/19/19 10:37 AM MEDICAL SUPERVISOR documented as of this encounter Care Teams Dock Manager Relationship Specialty Start Date End Date No Ref-Primary, Physician PCP - General 09/19/19 Comfort Louise MD [address] [place] [address] Assigned OBGYN Provider 06/26/21 Gretta Resendez MD [address] [place] [address] Assigned OBGYN Provider 07/24/21 3 Paulino Barker MD [address] [address] Assigned PCP 08/25/21 Chuckie Perry MD [address] [place] [address] Assigned OBGYN Provider 01/20/23 documented as of this encounter
--- OUTSIDE RECORDS SUMMARY | 2024-03-07 11:51 | XMS_ITS | Clinical Summary ---
Author Organization [facility] Address [place], [place] [address] Care Team Providers Care Paint Mixer Name Role Phone Rashad Knight MD Primary Care Provide r Allergies No known active allergies Medications Medication Sig Dispensed Refills Start Date End Date Status PNV Di35-[id number]-MGL-ZB-2 tabletIndications:Encnt r for suprvsn of normal first , unsp trimester Take 1 tablet by mouth once daily. 0 06/20/2018 Active ferrous sulfate 325 mg delayed release tabletIndications:Anemi a, unspecified type Take 1 tablet by mouth once daily. 0 06/20/2018 Active Active Problems Problem Noted Date Diagnosed Date Supervision of normal first , antepartu 06/20/2018 Overview: 27 y.o. Medical concerns: Anemia, Heart palpitations Genetic screening: Discussed BMI 24 Recommended wt gain 25-35lbs Flu vaccine: Discussed Pertussis Vaccine: Discussed FOB: Yehuda Resolved Problems Problem Noted Date Diagnosed Date Resolved Date Irregular menses 05/02/2010 09/16/2015 Immunizations Name Administration Dates Next Due DTaP 01/22/1997, 3,04/07/1992,01/21/1992 ,1991 HIB PRP-T (ActHIB,Hiberix) 02/01/1993,04/07/1992 ,01/21/1992 Hepatitis A (Peds) 07/26/2007,12/19/2006 Hepatitis B (Peds) 09/18/1997,03/11/1997, 997 Inactivated Polio Vaccine 01/22/1997,04/05/1993, 01/21/1992,1991 Influenza, IIV3 (Age >=3 years) 09/14/2008,07/26 MMR 01/22/1997,02/01/1993 Meningococcal Vaccine (Menactra) 04/18/2006 Td (Age >=7 Years) 05/01/2003 Varicella Vaccine 04/06/2009,03/08/1999 Family History Medical History Relation Name Comments Good Health Brother Shaq Good Health Father Festus Alcoholism Maternal Grandfather Hypertension Mother Bridgett Stroke Paternal Grandfather Stroke Paternal Grandmother Good Health Sister 1 Marie Good Health Sister 2 Vandana Relation Name Status Comments Brother Shaq Alive Father Festus Alive Maternal Grandfather Alive Maternal Grandmother Alive Mother Bridgett Alive Paternal Grandfather Alive Paternal Grandmother Alive Sister 1 Marie Alive Sister 2 Vandana Alive Social History Tobacco Use Types Packs/Day Years Used Date Smoking Tobacco: Former Cigarettes Smokeless Tobacco: Never Tobacco Cessation:Counseling Given: No Comments:Occassionl recreational smoker-not while Alcohol Use Standard Drinks/Week Comments Yes 0 (1 standard drink = 0.6 oz pur e alcohol) Not while pregannt Social Connections Answer Date Recorded Frequency of Communication with Friends and Fami ly Not on file 11/01/2023 Sex and Gender Information Value Date Recorded Sex Assigned at Not on file Gender Identity Not on file Sexual Orientation Not on file Obstetrics History Para Term AB IAB SAB Ectopic Multiple Livin g Live Births 1 Date Outcome GA Total Labor Labor/2nd/3rd Weight Sex Type Anes PTL Roxane A1 A5 Name Clin Last Filed Vital Signs Vital Sign Reading Time Taken Comments Blood Pressure 118/74 09/16/2015 3:29 PM BAND EDGER Pulse 60 03/05/2012 4:28 PM CDT Temperature 36.6 ??C (97.8 ??F) 07/26/2009 2:56 PM CS T Respiratory Rate 12 03/05/2012 4:28 PM CDT Oxygen Saturation - - Inhaled Oxygen Concentration - - Weight 66.5 kg (146 lb 9.6 oz) 06/20/2018 9:33 A M CDT Height 166.4 cm (5' 5.5) 06/20/2018 9:33 AM CDT Body Mass Index 24.02 06/20/2018 9:33 AM CDT Plan of Treatment Health Maintenance Due Date Last Done Comments Tdap 2002 Depression screening for age 12+ 2003 Hepatitis C screening for age 18-79 2009 Tetanus booster 05/01/2013 05/01/2003 BMI (ht and wt on same day) for age 18+ 06/20/2019 06/20/2018 COVID-19 vaccine series ( season) 2023 08/22/2021, 01/19/2021, 12/30/2020 Influenza for age 9-49 05/18/2024 09/14/2008, 2006 Pap test for age 21-65 03/09/2025 , 03/09/2022, 01/14/2019, Additional history exists HIV for age 15-65 Completed 06/20/2018, 09/16/2015 Pneumococcal series for age 6-64 Aged Out No longer eligible based on patient's age to complete this topic Procedures Procedure Name Priority Date/Time Associated Diagnosis Comments HPV THIN PREP Routine 03/09/2022 12:00 PM CDT ANTI HIV 1/2 Routine 06/20/2018 10:14 AM CDT Encntr for suprvsn of normal first , unsp trimester from Last 3 Months or Most Recently Relevant to Health Maintenance Results * HPV HIGH RISK (03/09/2022 12:00 PM CDT) TYPE 16 Negative Negative 03/14/2022 11:14 AM CDT [facility] TYPE 18 Negative Negative 03/14/2022 11:14 AM CDT [facility] OTHER HIGH RISK TYPES Negative Negative 03/14/2022 11:14 AM CDT [facility] Other (Cervical/Vagina l) 03/09/2022 12:00 PM CDT 03/13/2022 8:27 AM CDT Narrative [facility] - 03/14/2022 11:14 AM CDT HPV types 16, 18, 31, 33, 35, 39, 45, 51, 52, 56, 58, 59, 66 and 68 DNA were undetectable or below the pre-set threshold. Methodology: Abimbola Bambi 4800 HPV Test Tejal Hewitt NP MICROBIOLOGY [facility] [address] [place] [address], * ANTI HIV 1/2 (06/20/2018 10:14 AM CDT) HIV-1/HIV-2 ANTIBODY Non-Reacti ve Non-Reacti ve 06/20/2018 2:22 PM CDT [facility] Comment:HIV-1 p24 and HIV-1/ HIV-2 Ab not detected. Blood BLOOD SPECIMEN / Unknown Venipuncture / Unknown 06/20/2018 10:14 AM CDT 06/20/2018 10:14 AM CDT Moy Breen MD SEND OUTS [facility] [address] [place] [phone], from Last 3 Months or Most Recently Relevant to Health Maintenance Care Teams Paint Mixer Relationship Specialty Start Date End Date Rashad Knight MD [address] [place] [address] PCP - General 06/17/09
--- OUTSIDE RECORDS SUMMARY | 2024-03-07 11:51 | XMS_ITS | Referral Summary ---
Author Organization [facility] Address [address] [place] [address] Care Team Providers Care Coal Cutter Name Role Phone No Ref-Primary, Physician Primary Care Provider Paulino Barker MD Unavailable [phone] Allergies Active Allergy Reactions Criticality Noted Date [...] 01/22/1997 ,04/05/1993,01/21/1992,1991 TDAP (Adacel,Boostrix) 05/21/2019 Varicella 04/06/2009,03/08/1999 Social History Tobacco Use Types Packs/Day Years [...] Comments Blood Pressure 112/64 09/06/2021 1:15 PM LEAD NITRATE PROCESSOR Pulse 81 06/23/2021 9:40 AM CDT Temperature 36.9 ??C (98.5 ??F) 02/15/2016 6:32 PM CD T Respiratory Rate - - Oxygen Saturation 99% 02/15/2016 6:32 PM CDT Inhaled Oxygen Concentration - - Weight 70.3 kg (154 lb 14.4 oz) 09/06/2021 1:15 PM LEAD NITRATE PROCESSOR Height 166.4 cm (5' 5.5) 07/21/2021 9:49 AM CDT Body Mass Index 25.38 07/21/2021 9:49 AM CDT Plan of Treatment Not on file Procedures Procedure Name Priority Date/Time Associated Diagnosis [...] Antigen Antibody Combo (06/23/2021 10:29 AM CDT) Pathologist [facility] HIV Antigen Antibody Combo Nonreactive Nonreactive 06/23/2021 9:18 PM CDT [facility] Comment:HIV-1 p24 Ag & HIV-1 /HIV-2 Ab Not Detected Blood BLOOD SPECIMEN / Unknown Venipuncture / Unknown 06/23/2021 10:29 AM CDT 06/23/2021 10:30 AM CDT Comfort Louise MD LAB - BLOOD ORDERABLES [facility] Specialty Core Lab [address] [facility], [address] [address], [facility] [phone] * Hepatitis C antibody (06/23/2021 10:29 AM CDT) [facility] Hepatitis C Antibody Nonreactive Nonreactive 06/23/2021 9:18 PM CDT [facility] Blood BLOOD SPECIMEN / Unknown Venipuncture / Unknown 06/23/2021 10:29 AM CDT 06/23/2021 10:30 AM CDT Narrative [facility] - 06/23/2021 9:18 PM CDT Assay performance characteristics have not been established for newborns, infants, and children. Comfort Louise MD LAB - BLOOD ORDERABLES [facility] Specialty Core Lab [address] [facility], [address] [place] [address], [facility] [phone] * Pap imaged thin layer screen reflex to HPV if ASCUS - recommend age 25 - 29 (06/23/2021 9:53 AM CDT) Pathologist [facility] Interpretation Negative for Intraepithelial Lesion or Malignancy (NILM) 06/27/2021 12:39 PM CDT [facility] Specimen Adequacy Satisfactory for evaluation, endocervical/vaz sformation zone component absent 06/27/2021 12:39 PM CDT [facility] Clinical Information 06/27/2021 12:39 PM CDT [facility] LMP/Menopause Date 03/09/2021 06/27/2021 12:39 PM CDT [facility] Reflex Testing Yes if ASCUS 06/27/20 12:39 PM CDT [facility] Previous Abnormal? No 06/27/2021 12:39 PM CDT [facility] Performing Labs The technical component of this testing was completed at [facility] 06/27/2021 12:39 PM CDT [facility] Brushing CERVIX UTERI STRUCTURE / Unknown 06/23/2021 9:53 AM CDT 06/23/2021 10:44 AM CDT Comment:Pap imaged thin laye r screen reflex to HPV if ASCUS - recommend age 25 - 29Answer REQUIRED pap questions below:LMP (date): Patient's last menstrual period was 03/09/2021 (exact date).PAP SOURCE: Cervical - EndocervicalPREVIOUS PAP RESULTS: No results found for: PAPPERTINENT CLINICAL HISTORY: Comfort CORONADO - CARLOS MELENDEZ [facility] [address] [place] [address], [facility] [phone] from Last 3 Months or Most Recently Relevant to Health Maintenance Care Teams Coal Cutter Relationship Specialty Start Date End Date No Ref-Primary, Physician PCP - General 09/19/19 Paulino Barker MD [facility] [address] Assigned PCP 08/25/21
--- OUTSIDE RECORDS SUMMARY | 2024-03-07 11:51 | XMS_ITS | Encounter Summary ---
Author Organization [facility] Address [address] [place] [address] Care Team Providers Care Desizing Machine Operator Head End Name Role Phone No Ref-Primary, Physician Primary Care Provider Comfort Louise MD Unavailable [phone] Gretta Resendez MD Unavailable [phone] Paulino Barker MD Unavailable [phone] Chuckie Perry MD Unavailable [phone] Encounter Details Date Type Department Care Team (Late st Contact Info) Description 07/22/2021 MyC Medical Advice [facility] Women's [address] [place] [address] Gretta Resendez MD [address] [place], [place] [address] Social History Tobacco Use Types Packs/Day Years [...] COVID-19? No / Unsure 07/25/2021 9:32 AM STRAWBERRY GROWER documented as of this encounter Plan of Treatment Not on file documented as of this encounter Visit Diagnoses Not on filedocumented in this encounter Additional Health Concerns Assessment Noted Time PHQ-9 Depression Total Score: 3 09/19/19 20 10:37 AM STRAWBERRY GROWER documented as of this encounter Care Teams Desizing Machine Operator Head End Relationship Specialty Start Date End Date No Ref-Primary, Physician PCP - General 09/19/19 Comfort Louise MD [address] [place] [address] Assigned OBGYN Provider 06/26/21 Gretta Resendez MD [address] [place] [address] Assigned OBGYN Provider 07/24/21 3 Paulino Barker MD [address] [address] Assigned PCP 08/25/21 Chuckie Perry MD [address] [place] [address] Assigned OBGYN Provider 01/20/23 documented as of this encounter
[2024-03-07 13:01] VITALS: BP 141/97; PULSE 95; RESP 18; O2SAT 100
== END 2024-03-07 13:02 | disposition home or self-care (01) ==
PROVIDERS: Emergency Provider Family Medicine; PCP Physician Assistant Medical
DX: O30.091 Twin pregnancy, unable to determine number of placenta and number of amniotic sacs, first trimester (principal); R10.31 Right lower quadrant pain
CPT/HCPCS: 36415; 76817; 80048; 80076; 81001; 83690; 84702; 85025; 86140; 87086; 99283; 99284; J7030

== ENCOUNTER 2024-03-18 08:14 | Outpatient (CLI) | payer OTHER, MEDICAID, SELFPAY ==
--- NOTE | 2024-03-18 08:15 | CRLHL7_ITS ---
For Patients: As a result of the Cures Act, medical imaging exams and procedure reports are released immediately into your electronic medical record. You may view this report before your referring provider. If you have questions, please contact your health care provider. OBSTETRICAL ULTRASOUND, 03/18/2024 INDICATION: Ultrasound for dates and viability. LMP: 01/06/2024 [facility] by LMP: 10/12/2024 Gestational Age: 10 weeks 2 days Previous Ultrasound: 03/07/2024 ME[facility]AN by Ultrasound: 10/22/2024 Gestational Age: 7 weeks 2 days TECHNIQUE: Transvaginal pelvic ultrasound. FINDINGS: Viable di/di twin . BABY A: CRL: 20 cm, 8 weeks 4 days; MEAGAN 10/24/2024 heart rate: 165 BPM Gestational sac: 3.6 cm, appears within normal limits Yolk sac: 3.0 mm, appears within normal limits BABY B: CRL: 2.1 cm, 8 weeks 5 days; MEAGAN 10/23/2024 heart rate: 171 BPM Gestational sac: 3.6 cm, appears within normal limits Yolk sac: 3.6 mm, appears within normal limits Dichorionic/diamniotic. Right ovary: 4.6 x 3.6 x 3.3 cm, Left ovary: 6.1 x 2.1 x 2.4 cm IMPRESSION: 1. Diamniotic/dichorionic twin . 2. Measurements are approximately 1-1/2 weeks younger than clinical dates. JONH GARCIA M.D. Body/Diagnostic Radiologist [facility] [email or web address] Transcribed: 5:[address]/Dictated by: Jonh Garcia MD @ 03/18/2024 3:29:[address]/Dictated by: Jonh Garcia MD @ 03/18/2024 3:29:00 PM (Electronically Signed)
--- OUTSIDE RECORDS SUMMARY | 2024-03-18 08:17 | XMS_ITS | Encounter Summary ---
Author Organization [place] Address [address] [place] [address] Care Team Providers Care Grizzlyman Name Role Phone No Ref-Primary, Physician Primary Care Provider Gretta Resendez MD Unavailable [phone] Paulino Barker MD Unavailable [phone] Chuckie Perry MD Unavailable Encounter Details Date Type Department Care Team (Late st Contact Info) Description 07/26/2021 MyC Medical Advice [facility] Women's [address] [place] [address] Gretta Resendez MD [address] [place] [address] Social History Tobacco Use Types [...] COVID-19? No / Unsure 07/25/2021 9:32 AM APPLICATION SUPPORT ADMINISTRATOR documented as of this encounter Plan of Treatment Not on file documented as of this encounter Visit Diagnoses Not on filedocumented in this encounter Additional Health Concerns Assessment Noted Time PHQ-9 Depression Total Score: 3 09/19/19 20 10:37 AM APPLICATION SUPPORT ADMINISTRATOR documented as of this encounter Care Teams Grizzlyman Relationship Specialty Start Date End Date No Ref-Primary, Physician PCP - General 09/19/19 Gretta Resendez MD [address] [place] [address] Assigned OBGYN Provider 07/24/21 3 Paulino Barker MD [address] [address] Assigned PCP 08/25/21 Chuckie Perry MD [address] [place] [address] Assigned OBGYN Provider 01/20/23 documented as of this encounter
--- OUTSIDE RECORDS SUMMARY | 2024-03-18 08:17 | XMS_ITS | Encounter Summary ---
Author Organization [place] Address [address] [place] [address] Care Team Providers Care Shared Services Representative Name Role Phone No Ref-Primary, Physician Primary Care Provider Comfort Louise MD Unavailable [phone] Gretta Resendez MD Unavailable [phone] Paulino Barker MD Unavailable Chuckie Perry MD Unavailable Encounter Details Date Type Department Care Team (Late st Contact Info) Description 07/06/2021 MyC Medical Advice [facility] [address] [place] [phone] Comfort Louise MD [address] [place] [address] Social History Tobacco Use Types [...] Depression Total Score: 3 09/19/19 10:37 AM CYTOTECHNOLOGIST/HISTOTECHNOLOGIST documented as of this encounter Care Teams Shared Services Representative Relationship Specialty Start Date End Date No Ref-Primary, Physician PCP - General 09/19/19 Comfort Louise MD [address] [place] [address] Assigned OBGYN Provider 06/26/21 Gretta Resendez MD [address] [place] [address] Assigned OBGYN Provider 07/24/21 3 Paulino Barker MD [address] [address] Assigned PCP 08/25/21 Chuckie Perry MD [address] [place] [address] Assigned OBGYN Provider 01/20/23 documented as of this encounter
--- OUTSIDE RECORDS SUMMARY | 2024-03-18 08:17 | XMS_ITS | Referral Summary ---
Author Organization [place] Address [address] [place] [address] Care Team Providers Care Shale Miner Blasting Name Role Phone No Ref-Primary, Physician Primary Care Provider Paulino Barker MD Unavailable [phone] Allergies Active Allergy Reactions Criticality Noted Date [...] Comments Blood Pressure 112/64 09/06/2021 1:15 PM BOILERMAKER INDUSTRIAL BOILERS Pulse 81 06/23/2021 9:40 AM CDT Temperature 36.9 ??C (98.5 ??F) 02/15/2016 6:32 PM CD T Respiratory Rate - - Oxygen Saturation 99% 02/15/2016 6:32 PM CDT Inhaled Oxygen Concentration - - Weight 70.3 kg (154 lb 14.4 oz) 09/06/2021 1:15 PM BOILERMAKER INDUSTRIAL BOILERS Height 166.4 cm (5' 5.5) 07/21/2021 9:49 [...] Antibody Combo (06/23/2021 10:29 AM CDT) Pathologist [facility] HIV Antigen Antibody Combo Nonreactive Nonreactive 06/23/2021 9:18 PM CDT [facility] Comment:HIV-1 p24 Ag & HIV-1 /HIV-2 Ab Not Detected Blood BLOOD SPECIMEN / Unknown Venipuncture / Unknown 06/23/2021 10:29 AM CDT 06/23/2021 10:30 AM CDT Comfort Louise MD LAB - BLOOD ORDERABLES [facility] Specialty Core Lab [address] [facility], [address] [address], [facility] [phone] * Hepatitis C antibody (06/23/2021 10:29 AM CDT) [facility] Hepatitis C Antibody Nonreactive Nonreactive 06/23/2021 9:18 PM CDT [facility] Blood BLOOD SPECIMEN / Unknown Venipuncture / Unknown 06/23/2021 10:29 AM CDT 06/23/2021 10:30 AM CDT Narrative [facility] - 06/23/2021 9:18 PM CDT Assay performance characteristics have not been established for newborns, infants, and children. Comfort Louise MD LAB - BLOOD ORDERABLES [facility] Specialty Core Lab [address] [facility], [address] [place] [address], [facility] [phone] * Pap imaged thin layer screen reflex to HPV if ASCUS - recommend age 25 - 29 (06/23/2021 9:53 AM CDT) Pathologist [facility] Interpretation Negative for Intraepithelial Lesion or Malignancy (NILM) 06/27/2021 12:39 PM CDT [facility] Specimen Adequacy Satisfactory for evaluation, endocervical/vaz sformation zone component absent 06/27/2021 12:39 PM CDT [facility] Clinical Information 06/27/2021 12:39 PM CDT [facility] LMP/Menopause Date 03/09/2021 06/27/2021 12:39 PM CDT [facility] Reflex Testing Yes if ASCUS 06/27/20 12:39 PM CDT [facility] Previous Abnormal? No 06/27/2021 12:39 PM CDT [facility] Performing Labs The technical component of this testing was completed at [facility] 06/27/2021 12:39 PM CDT [facility] Brushing CERVIX UTERI STRUCTURE / Unknown 06/23/2021 9:53 AM CDT 06/23/2021 10:44 AM CDT Comment:Pap imaged thin laye r screen reflex to HPV if ASCUS - recommend age 25 - 29Answer REQUIRED pap questions below:LMP (date): Patient's last menstrual period was 03/09/2021 (exact date).PAP SOURCE: Cervical - EndocervicalPREVIOUS PAP RESULTS: No results found for: PAPPERTINENT CLINICAL HISTORY: Comfort CORONADO - CARLOS MELENDEZ [facility] [address] [place] [address], [facility] [phone] from Last 3 Months or Most Recently Relevant to Health Maintenance Care Teams Shale Miner Blasting Relationship Specialty Start Date End Date No Ref-Primary, Physician PCP - General 09/19/19 Paulino Barker MD [facility] [address] Assigned PCP 08/25/21
--- OUTSIDE RECORDS SUMMARY | 2024-03-18 08:17 | XMS_ITS | Clinical Summary ---
Author Organization [facility] Address [place], [place] [address] Care Team Providers Care Economic Forecaster Name Role Phone Rashad Knight MD Primary Care Provide r Allergies No known active allergies Medications Medication Sig Dispensed Refills Start Date End Date Status PNV [id number] tabletIndications:Encnt r for suprvsn of normal first [...] Comments Blood Pressure 118/74 09/16/2015 3:29 PM DUST OPERATOR Pulse 60 03/05/2012 4:28 PM CDT Temperature [...] 16 Negative Negative 03/14/2022 11:14 AM CDT [facility] TYPE 18 Negative Negative 03/14/2022 11:14 AM CDT [facility] OTHER HIGH RISK TYPES Negative Negative 03/14/2022 11:14 AM CDT [facility] Other (Cervical/Vagina l) 03/09/2022 12:00 PM CDT 03/13/2022 8:27 AM CDT Narrative [facility] [facility] - 03/14/2022 11:14 AM CDT HPV types 16, 18, 31, 33, 35, 39, 45, 51, 52, 56, 58, 59, 66 and 68 DNA were undetectable or below the pre-set threshold. Methodology: Abimbola Bambi 4800 HPV Test Tejal Hewitt NP MICROBIOLOGY [facility] [address] [place] [address], * ANTI HIV 1/2 (06/20/2018 10:14 AM CDT) HIV-1/HIV-2 ANTIBODY Non-Reacti ve Non-Reacti ve 06/20/2018 2:22 PM CDT [facility] Comment:HIV-1 p24 and HIV-1/ HIV-2 Ab not detected. Blood BLOOD SPECIMEN / Unknown Venipuncture / Unknown 06/20/2018 10:14 AM CDT 06/20/2018 10:14 AM CDT Moy Breen MD SEND OUTS [facility] [address] [place] [phone], from Last 3 Months or Most Recently Relevant to Health Maintenance Care Teams Economic Forecaster Relationship Specialty Start Date End Date Rashad Knight MD [address] [place] [address] PCP - General 06/17/09
--- OUTSIDE RECORDS SUMMARY | 2024-03-18 08:17 | XMS_ITS | Encounter Summary ---
Author Organization [place] Address [address] [place] [address] Care Team Providers Care Backup Operator Name Role Phone No Ref-Primary, Physician Primary Care Provider Comfort Louise MD Unavailable [phone] Gretta Resendez MD Unavailable [phone] Paulino Barker MD Unavailable Chuckie Perry MD Unavailable [phone] Encounter Details Date Type Department Care Team (Late st Contact Info) Description 06/10/2021 MyC Medical Advice [facility] Women[facility] Clinic [address] [place] [phone] Comfort Louise MD [address] [place] [address] Social History Tobacco Use Types [...] Depression Total Score: 3 09/19/19 10:37 AM UTILITY OPERATOR YARN documented as of this encounter Care Teams Backup Operator Relationship Specialty Start Date End Date No Ref-Primary, Physician PCP - General 09/19/19 Comfort Louise MD [address] [place] [address] Assigned OBGYN Provider 06/26/21 Gretta Resendez MD [address] [place] [address] Assigned OBGYN Provider 07/24/21 3 Paulino Barker MD [address] [address] Assigned PCP 08/25/21 Chuckie Perry MD [address] [place] [address] Assigned OBGYN Provider 01/20/23 documented as of this encounter
--- OUTSIDE RECORDS SUMMARY | 2024-03-18 08:17 | XMS_ITS | Encounter Summary ---
Author Organization [place] Address [address] [place] [address] Care Team Providers Care Configuration Management Administrator Name Role Phone No Ref-Primary, Physician Primary Care Provider Marlene Dolan MD Unavailable [phone] Comfort Louise MD Unavailable [phone] Gretta Resendez MD Unavailable [phone] Paulino Barker MD Unavailable [phone] Chuckie Perry MD Unavailable Encounter Details Date Type Department Care Team (Late st Contact Info) Description 11/07/2019 MyC Medical Advice [facility] Women's [facility] [address] [place] [address] Marlene Dolan MD [address], [address] [place] [address] Social History Tobacco Use Types Packs/Day Years [...] Total Score: 3 09/19/19 20 10:37 AM PEACH GROWER documented as of this encounter Care Teams Configuration Management Administrator Relationship Specialty Start Date End Date No Ref-Primary, Physician PCP - General 09/19/19 Marlene Dolan MD [address], [address] [address] Assigned OBGYN Provider 07/09/20 1 Comfort Louise MD [address] [place] [address] Assigned OBGYN Provider 06/26/21 Gretta Resendez MD [address] [place] [address] Assigned OBGYN Provider 07/24/21 3 Paulino Barker MD [address] [address] Assigned PCP 08/25/21 Chuckie Perry MD [address] [place] [address] Assigned OBGYN Provider 01/20/23 documented as of this encounter
--- OUTSIDE RECORDS SUMMARY | 2024-03-18 08:17 | XMS_ITS | Encounter Summary ---
Author Organization [place] Address [address] [place] [address] Care Team Providers Care Duplicating Machine Mechanic Name Role Phone No Ref-Primary, Physician Primary Care Provider Comfort Louise MD Unavailable Gretta Resendez MD Unavailable [phone] Paulino Barker MD Unavailable [phone] Chuckie Perry MD Unavailable Reason for Visit * Reason Onset Date Comments Results 06/24/2021 Encounter Details Date Type Department Care Team (Late st Contact Info) Description 06/24/2021 [facility] Medical Advice [facility] [address] [place] [address] Comfort Louise MD [address] [place] [address] Results Social History Tobacco Use [...] Depression Total Score: 3 09/19/19 10:37 AM INFANTRY OFFICER documented as of this encounter Care Teams Duplicating Machine Mechanic Relationship Specialty Start Date End Date No Ref-Primary, Physician PCP - General 09/19/19 Comfort Louise MD [address] [place] [address] Assigned OBGYN Provider 06/26/21 Gretta Resendez MD [address] [place] [address] Assigned OBGYN Provider 07/24/21 3 Paulino Barker MD [address] [address] Assigned PCP 08/25/21 Chuckie Perry MD [address] [place] [address] Assigned OBGYN Provider 01/20/23 documented as of this encounter
--- OUTSIDE RECORDS SUMMARY | 2024-03-18 08:17 | XMS_ITS | Clinical Summary ---
Author Organization [place] Address [address] [place] [address] Care Team Providers Care Canopy Stringer Name Role Phone No Ref-Primary, Physician Primary Care Provider Paulino Barker MD Unavailable [phone] Allergies Active Allergy Reactions Criticality Noted Date [...] Comments Blood Pressure 112/64 09/06/2021 1:15 PM TELEPHONE ORDER CLERK ROOM SERVICE Pulse 81 06/23/2021 9:40 AM CDT Temperature 36.9 ??C (98.5 ??F) 02/15/2016 6:32 PM CD T Respiratory Rate - - Oxygen Saturation 99% 02/15/2016 6:32 PM CDT Inhaled Oxygen Concentration - - Weight 70.3 kg (154 lb 14.4 oz) 09/06/2021 1:15 PM TELEPHONE ORDER CLERK ROOM SERVICE Height 166.4 cm (5' 5.5) 07/21/2021 9:49 [...] Combo Nonreactive Nonreactive 06/23/2021 9:18 PM CDT [facility] Comment:HIV-1 p24 Ag & HIV-1 /HIV-2 Ab Not Detected Blood BLOOD SPECIMEN / Unknown Venipuncture / Unknown 06/23/2021 10:29 AM CDT 06/23/2021 10:30 AM CDT Comfort Louise MD LAB - BLOOD ORDERABLES [facility] Specialty Core Lab [address] [facility], Room [address] [address], [facility] [phone] * Hepatitis C antibody (06/23/2021 10:29 AM CDT) Pathologist [facility] Hepatitis C Antibody Nonreactive Nonreactive 06/23/2021 9:18 PM CDT [facility] Blood BLOOD SPECIMEN / Unknown Venipuncture / Unknown 06/23/2021 10:29 AM CDT 06/23/2021 10:30 AM CDT Narrative [facility] - 06/23/2021 9:18 PM CDT Assay performance characteristics have not been established for newborns, infants, and children. Comfort Louise MD LAB - BLOOD ORDERABLES [facility] Specialty Core Lab [address] [facility], Room [address] [address], [facility] [phone] * Pap imaged thin layer screen reflex to HPV if ASCUS - recommend age 25 - 29 (06/23/2021 9:53 AM CDT) Interpretation Negative for Intraepithelial Lesion or Malignancy (NILM) 06/27/2021 12:39 PM CDT [facility] Specimen Adequacy Satisfactory for evaluation, endocervical/vaz sformation zone component absent 06/27/2021 12:39 PM CDT [facility] Clinical Information 06/27/2021 12:39 PM CDT [facility] LMP/Menopause Date 03/09/2021 06/27/2021 12:39 PM CDT [facility] Reflex Testing Yes if ASCUS 06/27/20 12:39 PM CDT [facility] Previous Abnormal? No 06/27/2021 12:39 PM CDT [facility] Performing Labs The technical component of this testing was completed at [facility] 06/27/2021 12:39 PM CDT [facility] Brushing CERVIX UTERI STRUCTURE / Unknown 06/23/2021 9:53 AM CDT 06/23/2021 10:44 AM CDT Comment:Pap imaged thin laye r screen reflex to HPV if ASCUS - recommend age 25 - 29Answer REQUIRED pap questions below:LMP (date): Patient's last menstrual period was 03/09/2021 (exact date).PAP SOURCE: Cervical - EndocervicalPREVIOUS PAP RESULTS: No results found for: PAPPERTINENT CLINICAL HISTORY: Comfort GONZALEZ AP [facility] [address] [place] [address], [facility] [phone] from Last 3 Months or Most Recently Relevant to Health Maintenance Care Teams Canopy Stringer Relationship Specialty Start Date End Date No Ref-Primary, Physician PCP - General 09/19/19 Paulino Barker MD [address] [address] Assigned PCP 08/25/21
--- OUTSIDE RECORDS SUMMARY | 2024-03-18 08:17 | XMS_ITS | Encounter Summary ---
Author Organization [place] Address [address] [place] [address] Care Team Providers Care Gas Worker Name Role Phone No Ref-Primary, Physician Primary Care Provider Comfort Louise MD Unavailable [phone] Gretta Resendez MD Unavailable [phone] Paulino Barker MD Unavailable [phone] Chuckie Perry MD Unavailable Encounter Details Date Type Department Care Team (Late st Contact Info) Description 07/22/2021 MyC Medical Advice [facility] Women's [address] [place] [address] Gretta Resendez MD [address] [place], [place] [address] Social History Tobacco Use Types Packs/Day Years [...] COVID-19? No / Unsure 07/25/2021 9:32 AM METAL FENCE ERECTOR documented as of this encounter Plan of Treatment Not on file documented as of this encounter Visit Diagnoses Not on filedocumented in this encounter Additional Health Concerns Assessment Noted Time PHQ-9 Depression Total Score: 3 09/19/19 20 10:37 AM METAL FENCE ERECTOR documented as of this encounter Care Teams Gas Worker Relationship Specialty Start Date End Date No Ref-Primary, Physician PCP - General 09/19/19 Comfort Louise MD [address] [place] [address] Assigned OBGYN Provider 06/26/21 Gretta Resendez MD [address] [place] [address] Assigned OBGYN Provider 07/24/21 3 Paulino Barker MD [address] [address] Assigned PCP 08/25/21 Chuckie Perry MD [address] [place] [address] Assigned OBGYN Provider 01/20/23 documented as of this encounter
--- OUTSIDE RECORDS SUMMARY | 2024-03-18 08:17 | XMS_ITS | Encounter Summary ---
Author Organization [place] Address [address] [place] [address] Care Team Providers Care Software Engineer Kernel Name Role Phone No Ref-Primary, Physician Primary Care Provider Comfort Louise MD Unavailable [phone] Gretta Resendez MD Unavailable [phone] Paulino Barker MD Unavailable [phone] Chuckie Perry MD Unavailable [phone] Encounter Details Date Type Department Care Team (Late st Contact Info) Description 07/18/2021 MyC Medical Advice [facility] Women's [address] [place] [address] Gretta Resendez MD [address] [place], [place] [address] Social History Tobacco Use Types Packs/Day Years [...] Total Score: 3 09/19/19 20 10:37 AM NEPHROLOGY NURSE documented as of this encounter Care Teams Software Engineer Kernel Relationship Specialty Start Date End Date No Ref-Primary, Physician PCP - General 09/19/19 Comfort Louise MD [address] [place] [address] Assigned OBGYN Provider 06/26/21 Gretta Resendez MD [address] [place] [address] Assigned OBGYN Provider 07/24/21 3 Paulino Barker MD [address] [address] Assigned PCP 08/25/21 Chuckie Perry MD [address] [place] [address] Assigned OBGYN Provider 01/20/23 documented as of this encounter
--- OUTSIDE RECORDS SUMMARY | 2024-03-18 08:17 | XMS_ITS | Encounter Summary ---
Author Organization [place] Address [address] [place] [address] Care Team Providers Care Distillery Miller Name Role Phone No Ref-Primary, Physician Primary Care Provider Comfort Louise MD Unavailable [phone] Gretta Resendez MD Unavailable [phone] Paulino Barker MD Unavailable [phone] Chuckie Perry MD Unavailable [phone] Encounter Details Date Type Department Care Team (Late st Contact Info) Description 06/14/2021 MyC Medical Advice [facility] Clinic [address] [place] [address] Comfort Louise MD [address] [place] [address] Social History Tobacco Use Types [...] Depression Total Score: 3 09/19/19 10:37 AM LINE OUT MAN documented as of this encounter Care Teams Distillery Miller Relationship Specialty Start Date End Date No Ref-Primary, Physician PCP - General 09/19/19 Comfort Louise MD [address] [place] [address] Assigned OBGYN Provider 06/26/21 Gretta Resendez MD [address] [place] [address] Assigned OBGYN Provider 07/24/21 3 Paulino Barker MD [address] [address] Assigned PCP 08/25/21 Chuckie Perry MD [address] [place] [address] Assigned OBGYN Provider 01/20/23 documented as of this encounter
== END 2024-03-18 08:15 | disposition home or self-care (01) ==
LOC: US 08:15
PROVIDERS: PCP Physician Assistant Medical; Visit Provider Physician Assistant
DX: Z34.91 Encounter for supervision of normal pregnancy, unspecified, first trimester (principal); O30.041 Twin pregnancy, dichorionic/diamniotic, first trimester; Z3A.10 10 weeks gestation of pregnancy
CPT/HCPCS: 76817; 86703; 86706; 86803; 86850; 86900; 86901; 87086; 87340; 87491; 87591

== ENCOUNTER 2024-03-18 09:30 | Outpatient (CLI) | payer OTHER, MEDICAID, SELFPAY ==
--- OUTSIDE RECORDS SUMMARY | 2024-03-18 09:35 | XMS_ITS | Encounter Summary ---
Author Organization [place] Address [address] [place] [address] Care Team Providers Care Territory Sales Professional Name Role Phone No Ref-Primary, Physician Primary Care Provider Comfort Louise MD Unavailable [phone] Gretta Resendez MD Unavailable [phone] Paulino Barker MD Unavailable Chuckie Perry MD Unavailable Encounter Details Date Type Department Care Team (Late st Contact Info) Description 06/10/2021 MyC Medical Advice [facility] Clinic [address] [place] [address] Comfort Louise MD [address] [place] [address] Social History Tobacco Use Types [...] Depression Total Score: 3 09/19/19 10:37 AM RECREATION ACTIVITIES COORDINATOR documented as of this encounter Care Teams Territory Sales Professional Relationship Specialty Start Date End Date No Ref-Primary, Physician PCP - General 09/19/19 Comfort Louise MD [address] [place] [address] Assigned OBGYN Provider 06/26/21 Gretta Resendez MD [address] [place] [address] Assigned OBGYN Provider 07/24/21 3 Paulino Barker MD [address] [address] Assigned PCP 08/25/21 Chuckie Perry MD [address] [place] [address] Assigned OBGYN Provider 01/20/23 documented as of this encounter
--- OUTSIDE RECORDS SUMMARY | 2024-03-18 09:35 | XMS_ITS | Encounter Summary ---
Author Organization [place] Address [address] [place] [address] Care Team Providers Care Fitting Room Attendant Name Role Phone No Ref-Primary, Physician Primary Care Provider Comfort Louise MD Unavailable Gretta Resendez MD Unavailable [phone] Paulino Barker MD Unavailable [phone] Chuckie Perry MD Unavailable Reason for Visit * Reason Onset Date Comments Results 06/24/2021 Encounter Details Date Type Department Care Team (Late st Contact Info) Description 06/24/2021 [facility] Medical Advice [facility] Women[facility] Clinic [address] [place] [address] Comfort Louise MD [address] [place] [address] Results Social History Tobacco Use [...] Depression Total Score: 3 09/19/19 10:37 AM SHAREPOINT MANAGER documented as of this encounter Care Teams Fitting Room Attendant Relationship Specialty Start Date End Date No Ref-Primary, Physician PCP - General 09/19/19 Comfort Louise MD [address] [place] [address] Assigned OBGYN Provider 06/26/21 Gretta Resendez MD [address] [place] [address] Assigned OBGYN Provider 07/24/21 3 Paulino Barker MD [address] [address] Assigned PCP 08/25/21 Chuckie Perry MD [address] [place] [address] Assigned OBGYN Provider 01/20/23 documented as of this encounter
--- OUTSIDE RECORDS SUMMARY | 2024-03-18 09:35 | XMS_ITS | Encounter Summary ---
Author Organization [place] Address [address] [place] [address] Care Team Providers Care Traffic Reporter Name Role Phone No Ref-Primary, Physician Primary Care Provider Comfort Louise MD Unavailable [phone] Gretta Resendez MD Unavailable [phone] Paulino Barker MD Unavailable [phone] Chuckie Perry MD Unavailable Encounter Details Date Type Department Care Team (Late st Contact Info) Description 06/14/2021 MyC Medical Advice [facility] Women[facility] Clinic [address] [place] [address] Comfort Louise MD [address] [place] [address] Social History Tobacco Use Types [...] Depression Total Score: 3 09/19/19 10:37 AM ACCOUNTS RECEIVABLE ANALYST documented as of this encounter Care Teams Traffic Reporter Relationship Specialty Start Date End Date No Ref-Primary, Physician PCP - General 09/19/19 Comfort Louise MD [address] [place] [address] Assigned OBGYN Provider 06/26/21 Gretta Resendez MD [address] [place] [address] Assigned OBGYN Provider 07/24/21 3 Paulino Barker MD [address] [address] Assigned PCP 08/25/21 Chuckie Perry MD [address] [place] [address] Assigned OBGYN Provider 01/20/23 documented as of this encounter
--- OUTSIDE RECORDS SUMMARY | 2024-03-18 09:35 | XMS_ITS | Encounter Summary ---
Author Organization [place] Address [address] [place] [address] Care Team Providers Care Crusher Assembler Name Role Phone No Ref-Primary, Physician Primary Care Provider Comfort Louise MD Unavailable [phone] Gretta Resendez MD Unavailable [phone] Paulino Barker MD Unavailable [phone] Chuckie Perry MD Unavailable Encounter Details Date Type Department Care Team (Late st Contact Info) Description 07/22/[address] [facility] Women's [address] [place] [address] Gretta Resendez MD [address] [place], [place] [address] Social History Tobacco Use Types Packs/Day Years [...] COVID-19? No / Unsure 07/25/2021 9:32 AM PORTABLE SAWMILL OPERATOR documented as of this encounter Plan of Treatment Not on file documented as of this encounter Visit Diagnoses Not on filedocumented in this encounter Additional Health Concerns Assessment Noted Time PHQ-9 Depression Total Score: 3 09/19/19 20 10:37 AM PORTABLE SAWMILL OPERATOR documented as of this encounter Care Teams Crusher Assembler Relationship Specialty Start Date End Date No Ref-Primary, Physician PCP - General 09/19/19 Comfort Louise MD [address] [place] [address] Assigned OBGYN Provider 06/26/21 Gretta Resendez MD [address] [place] [address] Assigned OBGYN Provider 07/24/21 3 Paulino Barker MD [address] [address] Assigned PCP 08/25/21 Chuckie Perry MD [address] [place] [address] Assigned OBGYN Provider 01/20/23 documented as of this encounter
--- OUTSIDE RECORDS SUMMARY | 2024-03-18 09:35 | XMS_ITS | Clinical Summary ---
Author Organization [place] Address [address] [place] [address] Care Team Providers Care Supervising Producer Name Role Phone No Ref-Primary, Physician Primary Care Provider Paulino Barker MD Unavailable [phone] Allergies Active Allergy Reactions Criticality Noted Date [...] Comments Blood Pressure 112/64 09/06/2021 1:15 PM NUCLEAR CONTROL OPERATOR Pulse 81 06/23/2021 9:40 AM CDT Temperature 36.9 ??C (98.5 ??F) 02/15/2016 6:32 PM CD T Respiratory Rate - - Oxygen Saturation 99% 02/15/2016 6:32 PM CDT Inhaled Oxygen Concentration - - Weight 70.3 kg (154 lb 14.4 oz) 09/06/2021 1:15 PM NUCLEAR CONTROL OPERATOR Height 166.4 cm (5' 5.5) 07/21/2021 9:49 [...] Combo Nonreactive Nonreactive 06/23/2021 9:18 PM CDT [facility] Comment:HIV-1 p24 Ag & HIV-1 /HIV-2 Ab Not Detected Blood BLOOD SPECIMEN / Unknown Venipuncture / Unknown 06/23/2021 10:29 AM CDT 06/23/2021 10:30 AM CDT Comfort Louise MD LAB - BLOOD ORDERABLES [facility] [address] [facility], [address] [address], [facility] [phone] * Hepatitis C antibody (06/23/2021 10:29 AM CDT) Pathologist [facility] Hepatitis C Antibody Nonreactive Nonreactive 06/23/2021 9:18 PM CDT [facility] Blood BLOOD SPECIMEN / Unknown Venipuncture / Unknown 06/23/2021 10:29 AM CDT 06/23/2021 10:30 AM CDT Narrative [facility] - 06/23/2021 9:18 PM CDT Assay performance characteristics have not been established for newborns, infants, and children. Comfort Louise MD LAB - BLOOD ORDERABLES [facility] Special[facility] [address] [facility], [address] [address], [facility] [phone] * Pap imaged thin layer screen reflex to HPV if ASCUS - recommend age 25 - 29 (06/23/2021 9:53 AM CDT) Interpretation Negative for Intraepithelial Lesion or Malignancy (NILM) 06/27/2021 12:39 PM CDT [facility] Specimen Adequacy Satisfactory for evaluation, endocervical/avz sformation zone component absent 06/27/2021 12:39 PM CDT [facility] Clinical Information 06/27/2021 12:39 PM CDT [facility] LMP/Menopause Date 03/09/2021 06/27/2021 12:39 PM CDT [facility] Reflex Testing Yes if ASCUS 06/27/20 12:39 PM CDT [facility] Previous Abnormal? No 06/27/2021 12:39 PM CDT [facility] Performing Labs The technical component of this testing was completed at [facility] 06/27/2021 12:39 PM CDT [facility] Brushing CERVIX UTERI STRUCTURE / Unknown 06/23/2021 9:53 AM CDT 06/23/2021 10:44 AM CDT Comment:Pap imaged thin laye r screen reflex to HPV if ASCUS - recommend age 25 - 29Answer REQUIRED pap questions below:LMP (date): Patient's last menstrual period was 03/09/2021 (exact date).PAP SOURCE: Cervical - EndocervicalPREVIOUS PAP RESULTS: No results found for: PAPPERTINENT CLINICAL HISTORY: Comfort GONZALEZ AP [facility] [address] [place] [address], [facility] [phone] from Last 3 Months or Most Recently Relevant to Health Maintenance Care Teams Supervising Producer Relationship Specialty Start Date End Date No Ref-Primary, Physician PCP - General 09/19/19 Paulino Barker MD [address] [address] Assigned PCP 08/25/21
--- OUTSIDE RECORDS SUMMARY | 2024-03-18 09:35 | XMS_ITS | Encounter Summary ---
Author Organization [place] Address [address] [place] [address] Care Team Providers Care Flattening Press Operator Name Role Phone No Ref-Primary, Physician Primary Care Provider Comfort Louise MD Unavailable [phone] Gretta Resendez MD Unavailable [phone] Paulino Barker MD Unavailable [phone] Chuckie Perry MD Unavailable Encounter Details Date Type Department Care Team (Late st Contact Info) Description 07/06/2021 MyC Medical Advice [facility] [address] [place] [id number] Comfort Louise MD [address] [place] [address] Social History Tobacco Use Types [...] Depression Total Score: 3 09/19/19 10:37 AM DOPE AND FABRIC WORKER documented as of this encounter Care Teams Flattening Press Operator Relationship Specialty Start Date End Date No Ref-Primary, Physician PCP - General 09/19/19 Comfort Louise MD [address] [place] [address] Assigned OBGYN Provider 06/26/21 Gretta Resendez MD [address] [place] [address] Assigned OBGYN Provider 07/24/21 3 Paulino Barker MD [address] [address] Assigned PCP 08/25/21 Chuckie Perry MD [address] [place] [address] Assigned OBGYN Provider 01/20/23 documented as of this encounter
--- OUTSIDE RECORDS SUMMARY | 2024-03-18 09:35 | XMS_ITS | Clinical Summary ---
Author Organization [facility] Address [place], [place] [address] Care Team Providers Care Vulcanizer Rubber Plate Name Role Phone Rashad Knight MD Primary Care Provide r Allergies No known active allergies Medications Medication Sig Dispensed Refills Start Date End Date Status PNV [id number] tabletIndications:Encnt r for suprvsn of normal first [...] Comments Blood Pressure 118/74 09/16/2015 3:29 PM WIRE RIGGER Pulse 60 03/05/2012 4:28 PM CDT Temperature [...] 16 Negative Negative 03/14/2022 11:14 AM CDT [facility] TYPE 18 Negative Negative 03/14/2022 11:14 AM CDT [facility] OTHER HIGH RISK TYPES Negative Negative 03/14/2022 11:14 AM CDT [facility] Other (Cervical/Vagina l) 03/09/2022 12:00 PM CDT 03/13/2022 8:27 AM CDT Narrative [facility] - 03/14/2022 11:14 AM CDT HPV types 16, 18, 31, 33, 35, 39, 45, 51, 52, 56, 58, 59, 66 and 68 DNA were undetectable or below the pre-set threshold. Methodology: Abimbola Bambi 4800 HPV Test Tejal Hewitt NP MICROBIOLOGY [facility] [address] [place] [address], * ANTI HIV 1/2 (06/20/2018 10:14 AM CDT) HIV-1/HIV-2 ANTIBODY Non-Reacti ve Non-Reacti ve 06/20/2018 2:22 PM CDT [facility] Comment:HIV-1 p24 and HIV-1/ HIV-2 Ab not detected. Blood BLOOD SPECIMEN / Unknown Venipuncture / Unknown 06/20/2018 10:14 AM CDT 06/20/2018 10:14 AM CDT Moy Breen MD SEND OUTS [facility] [address] [place] [phone], from Last 3 Months or Most Recently Relevant to Health Maintenance Care Teams Vulcanizer Rubber Plate Relationship Specialty Start Date End Date Rashad Knight MD [address] [place] [address] PCP - General 06/17/09
--- OUTSIDE RECORDS SUMMARY | 2024-03-18 09:35 | XMS_ITS | Encounter Summary ---
Author Organization [place] Address [address] [place] [address] Care Team Providers Care Sorting Grapple Operator Name Role Phone No Ref-Primary, Physician Primary Care Provider Comfort Louise MD Unavailable [phone] Gretta Resendez MD Unavailable [phone] Paulino Barker MD Unavailable [phone] Chuckie Perry MD Unavailable Encounter Details Date Type Department Care Team (Late st Contact Info) Description 07/18/2021 MyC Medical Advice [facility] Women's [address] [place] [address] Gretta Resendez MD [address] [place], [place] [phone] Social History Tobacco Use Types Packs/Day Years [...] Total Score: 3 09/19/19 20 10:37 AM CORSETIER documented as of this encounter Care Teams Sorting Grapple Operator Relationship Specialty Start Date End Date No Ref-Primary, Physician PCP - General 09/19/19 Comfort Louise MD [address] [place] [address] Assigned OBGYN Provider 06/26/21 Gretta Resendez MD [address] [place] [address] Assigned OBGYN Provider 07/24/21 3 Paulino Barker MD [address] [address] Assigned PCP 08/25/21 Chuckie Perry MD [address] [place] [address] Assigned OBGYN Provider 01/20/23 documented as of this encounter
--- OUTSIDE RECORDS SUMMARY | 2024-03-18 09:35 | XMS_ITS | Encounter Summary ---
Author Organization [place] Address [address] [place] [address] Care Team Providers Care Power Ballast Machine Operator Name Role Phone No Ref-Primary, Physician Primary Care Provider Gretta Resendez MD Unavailable [phone] Paulino Barker MD Unavailable [phone] Chuckie Perry MD Unavailable Encounter Details Date Type Department Care Team (Late st Contact Info) Description 07/26/2021 MyC Medical Advice [facility] Women's [address] [place] [address] Gretta Resendez MD [address] [place] [address] Social History Tobacco Use Types [...] COVID-19? No / Unsure 07/25/2021 9:32 AM PEDODONTIST documented as of this encounter Plan of Treatment Not on file documented as of this encounter Visit Diagnoses Not on filedocumented in this encounter Additional Health Concerns Assessment Noted Time PHQ-9 Depression Total Score: 3 09/19/19 20 10:37 AM PEDODONTIST documented as of this encounter Care Teams Power Ballast Machine Operator Relationship Specialty Start Date End Date No Ref-Primary, Physician PCP - General 09/19/19 Gretta Resendez MD [address] [place] [address] Assigned OBGYN Provider 07/24/21 3 Paulino Barker MD [address] [address] Assigned PCP 08/25/21 Chuckie Perry MD [address] [place] [address] Assigned OBGYN Provider 01/20/23 documented as of this encounter
--- OUTSIDE RECORDS SUMMARY | 2024-03-18 09:35 | XMS_ITS | Encounter Summary ---
Author Organization [place] Address [address] [place] [address] Care Team Providers Care Rock Mason Apprentice Name Role Phone No Ref-Primary, Physician Primary Care Provider Marlene Dolan MD Unavailable [phone] Comfort Louise MD Unavailable [phone] Gretta Resendez MD Unavailable [phone] Paulino Barker MD Unavailable [phone] Chuckie Perry MD Unavailable Encounter Details Date Type Department Care Team (Late st Contact Info) Description 11/07/2019 MyC Medical Advice [facility] Women's [facility] [address] [place] [address] Marlene Dolan MD [address], [place] [place] [address] Social History Tobacco Use Types Packs/Day Years [...] Total Score: 3 09/19/19 20 10:37 AM 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 documented as of this encounter Care Teams Rock Mason Apprentice Relationship Specialty Start Date End Date No Ref-Primary, Physician PCP - General 09/19/19 Marlene Dolan MD [address], [address] [address] Assigned OBGYN Provider 07/09/20 1 Comfort Louise MD [address] [place] [address] Assigned OBGYN Provider 06/26/21 Gretta Resendez MD [address] [place] [address] Assigned OBGYN Provider 07/24/21 3 Paulino Barker MD [address] [address] Assigned PCP 08/25/21 Chuckie Perry MD [address] [place] [address] Assigned OBGYN Provider 01/20/23 documented as of this encounter
--- OUTSIDE RECORDS SUMMARY | 2024-03-18 09:35 | XMS_ITS | Referral Summary ---
Author Organization [place] Address [address] [place] [address] Care Team Providers Care Health Manager Name Role Phone No Ref-Primary, Physician Primary Care Provider Paulino Barker MD Unavailable Allergies Active Allergy Reactions Criticality Noted Date [...] Comments Blood Pressure 112/64 09/06/2021 1:15 PM AUTOMOBILE REPAIR SERVICE ESTIMATOR Pulse 81 06/23/2021 9:40 AM CDT Temperature 36.9 ??C (98.5 ??F) 02/15/2016 6:32 PM CD T Respiratory Rate - - Oxygen Saturation 99% 02/15/2016 6:32 PM CDT Inhaled Oxygen Concentration - - Weight 70.3 kg (154 lb 14.4 oz) 09/06/2021 1:15 PM AUTOMOBILE REPAIR SERVICE ESTIMATOR Height 166.4 cm (5' 5.5) 07/21/2021 9:49 [...] Antibody Combo (06/23/2021 10:29 AM CDT) Pathologist [facility] HIV Antigen Antibody Combo Nonreactive Nonreactive 06/23/2021 9:18 PM CDT [facility] Comment:HIV-1 p24 Ag & HIV-1 /HIV-2 Ab Not Detected Blood BLOOD SPECIMEN / Unknown Venipuncture / Unknown 06/23/2021 10:29 AM CDT 06/23/2021 10:30 AM CDT Comfort Louise MD LAB - BLOOD ORDERABLES [facility] Special[facility] Core Lab [address] [facility], [address] [address], [facility] [phone] * Hepatitis C antibody (06/23/2021 10:29 AM CDT) [facility] Hepatitis C Antibody Nonreactive Nonreactive 06/23/2021 9:18 PM CDT [facility] Blood BLOOD SPECIMEN / Unknown Venipuncture / Unknown 06/23/2021 10:29 AM CDT 06/23/2021 10:30 AM CDT Narrative [facility] - 06/23/2021 9:18 PM CDT Assay performance characteristics have not been established for newborns, infants, and children. Comfort Louise MD LAB - BLOOD ORDERABLES [facility] Special[facility] Core Lab [address] [facility], [address] [place] [address], [facility] [phone] * Pap imaged thin layer screen reflex to HPV if ASCUS - recommend age 25 - 29 (06/23/2021 9:53 AM CDT) Pathologist [facility] Interpretation Negative for Intraepithelial Lesion or Malignancy (NILM) 06/27/2021 12:39 PM CDT [facility] Specimen Adequacy Satisfactory for evaluation, endocervical/vaz sformation zone component absent 06/27/2021 12:39 PM CDT [facility] Clinical Information 06/27/2021 12:39 PM CDT [facility] LMP/Menopause Date 03/09/2021 06/27/2021 12:39 PM CDT [facility] Reflex Testing Yes if ASCUS 06/27/20 12:39 PM CDT [facility] Previous Abnormal? No 06/27/2021 12:39 PM CDT [facility] Performing Labs The technical component of this testing was completed at [facility] 06/27/2021 12:39 PM CDT [facility] Brushing CERVIX UTERI STRUCTURE / Unknown 06/23/2021 9:53 AM CDT 06/23/2021 10:44 AM CDT Comment:Pap imaged thin laye r screen reflex to HPV if ASCUS - recommend age 25 - 29Answer REQUIRED pap questions below:LMP (date): Patient's last menstrual period was 03/09/2021 (exact date).PAP SOURCE: Cervical - EndocervicalPREVIOUS PAP RESULTS: No results found for: PAPPERTINENT CLINICAL HISTORY: Comfort CORONADO - CARLOS MELENDEZ [facility] [address] [place] [address], [facility] [phone] from Last 3 Months or Most Recently Relevant to Health Maintenance Care Teams Health Manager Relationship Specialty Start Date End Date No Ref-Primary, Physician PCP - General 09/19/19 Paulino Barker MD [facility] [address] [address] Assigned PCP 08/25/21
[2024-03-18 15:29] LABS: Chlamydia DNA Amplified* NOT DETECTED (No Detected); GC DNA Amplified* NOT DETECTED (No Detected)
== END 2024-03-18 09:31 | disposition home or self-care (01) ==
PROVIDERS: PCP Physician Assistant Medical; Visit Provider Physician Assistant
DX: O30.009 Twin pregnancy, unspecified number of placenta and unspecified number of amniotic sacs, unspecified trimester (principal)
CPT/HCPCS: 86592; 86703; 86704; 86706; 86762; 86787; 86803; 86850; 86900; 86901; 87086; 87340; 87491; 87591

== ENCOUNTER 2024-06-06 10:43 | Emergency (ER) | payer OTHER, MEDICAID, SELFPAY ==
[2024-06-06 11:28] VITALS: BP 134/74; PULSE 92; RESP 20; TEMP 37.1; O2SAT 99; BMI 26.5
--- NOTE | 2024-06-06 11:39 | ED.SOB ---
HPI - SOB/Dyspnea General Time Seen by Provider: 11:39 Date Seen: 06/06/24 Chief Complaint: Shortness of Breath/Dyspnea Stated Complaint: 20wks PG sent from clinic poss blood clot Time Seen by Provider: 06/06/24 11:39 Source: patient, RN notes reviewed and old records reviewed Mode of arrival: ambulatory Limitations: no limitations History of Present Illness HPI Narrative: Patient is a very pleasant 33-year-old female currently with twins who comes to the emergency room from the clinic for evaluation regarding shortness of breath. Patient notes that she actually has been short of breath slightly over the last week but does increase yesterday after walking her dog. She states that the dog pulled her suddenly into a amaro and she felt a crack in her neck and back when this occurred. She notes that she could finish her walk but afterwards just felt much more fatigued. She also notes that her back is sore now today from her neck and down her thoracic spine and that the shortness of breath seems to be worse. She states that she has a hard time taking a deep breath. She does note that she is yawning often. She does note that she also has some soreness under her belly. She notes that she was lifting pumpkins yesterday. She has not had any vaginal discharge nor has she had any contractions. No dysuria or hematuria. Patient was seen in the clinic this morning for her normal 20 week check. She notes that they did an EKG and the nurse and physician felt that something was wrong and sent her over to check for a blood clot. I do not have phone call or any communication with the clinic in regards to this. Vital signs were normal per patient report. Patient denies any calf pain history of DVT either personal or familial. She did travel it in early April to [facility] in a driving trip. Patient denies tobacco use or recent cough. She does note that her daughter has been battling a cold. Also of note last week patient had 4 days of dizziness and felt nauseated. She was told to increase her electrolyte intake and she thinks that has helped. She perhaps felt a little bit of that this morning. Related Data Home Medications ?Medication ?Instructions ?Recorded ?Confirmed prenat.vits,toribio,[id number] 1 tab PO QDAY 06/22/22 06/06/24 magnesium 200 mg tablet 200 mg PO QDAY 12/26/23 06/06/24 acetaminophen 500 mg tablet 1,000 mg PO QID PRN 03/18/24 06/06/24 (Tylenol Extra Strength) docusate sodium 100 mg capsule 100 mg PO QDAY 03/18/24 06/06/24 polyethylene glycol 3350 17 gram 17 g PO QDAY 03/18/24 06/06/24 oral powder packet aspirin 81 mg tablet,delayed 81 mg PO QDAY 05/08/24 06/06/24 release (Adult Low Dose Aspirin) Allergies Allergy/AdvReac Type Severity Reaction Status Date / Time No Known Drug Allergies Allergy Verified 06/06/24 09:02 Review of Systems Status of ROS: Reports: 10 or more systems reviewed and unremarkable except as noted in History and below Narrative: Last week felt some crackling in her right ear. This has resolved and she has no pain. Denies sore throat nasal discharge or cough. Const: Reports: fatigue; Denies: fever or chills Eyes: Denies: change in vision or blurry vision ENMT: Reports: neck pain; Denies: throat pain, throat swelling, difficulty swallowing or nasal congestion Cardio: Reports: chest pain (Sometimes heaviness around the bottom aspect of her chest and upper abdome), lightheadedness and shortness of breath with exertion; Denies: palpitations, edema or swelling of feet/ankles Resp: Reports: shortness of breath; Denies: cough, wheezing, stridor or pain on inspiration GI: Reports: abdominal pain; Denies: nausea, vomiting, difficulty swallowing or blood in stool : Denies: painful urination, urinary frequency or vaginal bleeding Musculo: Reports: back pain and neck pain; Denies: extremity pain or extremity swelling Integ/Breast: Denies: rash Neuro: Denies: headache or numbness in extremities Endo: Reports: fatigue Allergy/Immuno: Denies: throat swelling or wheezing PFSH [facility] Medical History Panic attacks ?F41.0 - Panic disorder [episodic paroxysmal anxiety] (ICD-10) Twin ?O30.009 - Twin , unspecified number of placenta and unspecified number of amniotic sacs, unspecified trimester (ICD-10) Nicotine dependence in remission ?F17.201 - Nicotine dependence, unspecified, in remission (ICD-10) at early stage ?Z34.90 - Encounter for supervision of normal , unspecified, unspecified trimester (ICD-10) Normal spontaneous vaginal delivery ?O80 - Encounter for full-term uncomplicated delivery (ICD-10) Surgical History History of tonsillectomy ?Z90.89 - Acquired absence of other organs (ICD-10) S/P ACL reconstruction ?Z98.890 - Other specified postprocedural states (ICD-10) Family History Mother High blood pressure High cholesterol Paternal Grandfather High cholesterol Maternal Grandfather Alcohol dependence Social History Narrative: 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 Marital status: . Orthodoxy/cultural needs: no. Chemical or radiation exposure: no. Pre- tobacco use: Occasional cigarette 1 year prior to . Pre- alcohol use: 2-3 per week. Current tobacco use: no. Current alcohol use: no. Recreational drug use: Occasional marijuana before . Dietary restrictions: no. Blood transfusion acceptable in an emergency: yes. PSYCHOSOCIAL HISTORY: History of depression or currently depressed: no. Current or past physical, emotional, or sexual mistreatment: no. Problems that will make it hard to make it to appointments: no. What is your current living situation?: I presently have a place to live Problems where you live: no known problems In the past 12 months, utilities in danger of being shut off: no In past 12 months, lack of transportation kept you from medical appts, meetings, work, or getting things needed for daily living: no In the past 12 mos, have been you worried that your food would run out before you had money to buy more?: never true In the past 12 mos, the food you bought just didn't last and you didn't have money to buy more?: never true Smoking Status: Former smoker Do you use any of these nicotine containing products: None Second hand tobacco smoke exposure: No How often do you have a drink containing alcohol: never How often do you have six or more drinks on one occasion: Never AUDIT-C Alcohol total score: 0 Non-prescribed substance use: denies use How often does anyone, including family, friends and others, physically hurt you: never How often does anyone, including family, friends and others, insult or talk down to you: rarely How often does anyone, including family, friends and others, threaten you with harm: never How often does anyone, including family, friends and others, scream or curse at you: never Little interest or pleasure in doing things: not at all Feeling down, depressed, or hopeless: not at all Exam Narrative: Exam Narrative: Patient is alert and oriented. She is yawning occasionally and does appear to be taking deeper breaths. Vital signs are reviewed and her O2 sats are normal with normal pulse. External ears eyes nose clear. Right TM is partially obscured by cerumen. Face symmetrical mentation normal. Heart with a regular rate and rhythm at rest. Lungs are clear in all lung baron without crackles wheezing. Abdomen is gravid. Mild discomfort with palpation in the lower abdomen. Lower extremities are without any evidence of edema. No erythema. No calf tenderness and negative Homans sign. Palpation of the back does not yield any significant tenderness-actually patient stated that it felt good. Const: Vital Signs, click to edit/add: Vital Signs - 24 hr 06/06/24 11:28 06/06/24 13:00 06/06/24 15:08 Temperature 98.7 F Pulse Rate [Pulse Oximeter] 92 92 82 Respiratory Rate 20 20 16 Blood Pressure [Ri ght Upper Arm] 134/74 120/69 122/63 Pulse Oximetry 99 98 98 Oxygen Delivery Me thod Room Air Room Air Room Air Documenting provider has reviewed patient's vital signs: yes Course Course ED Course: Differential diagnosis includes but is not limited to URI, PE, pneumonia, anxiety, physiological changes associated with , anemia, electrolyte imbalance, infection. Will place an IV and draw labs to include CBC, comprehensive panel, magnesium, D-dimer, have ordered ultrasound of bilateral lower extremities and a COVID test. Given reassuring oxygen levels, no evidence of lower extremity edema or tenderness, I do think it would be lacy to avoid undue radiation in this particular case. Therefore, have spoken to patient about doing blood test in the hopes that we could possibly avoid is CT with negative lower extremity ultrasound as well as a negative D-dimer. She is aware that D-dimer is often positive in . Will attempt to talk to Ob staff regarding any other concerns they may have had during her clinic visit earlier today. Reevaluation(s) Reevaluation #1: EKG by my read from the clinic Dye's initially sinus tachycardia at a rate of 120. Patient noted to have some nonspecific ST and T-wave changes. CA and QT intervals within normal limits. Second EKG in the clinic shows heart rate of 101. I do noted T-wave inversion in lead 3 otherwise no other acute changes. Note that I was not privy to the EKGs until late in the hospital stay. Reevaluation #2: Patient noted to have a minimally elevated D-dimer at 0.58, magnesium of 1.8 and negative troponin. Hemoglobin 10.6 which is a change from 13 in March. No evidence of UTI. I had the pleasure of speaking to Dr. Carrizales regarding this patient. Although the ultrasound of the extremities is negative OB has concern regarding potential PE. Unfortunately could not rule this out with a negative D-dimer. I did speak with patient about risk of CT with radiation and the fact that her oxygen saturations are reassuring. She had no tachycardia here in the emergency room but I do note from her earlier EKG her heart rate was elevated to 120. Given this decision making with the patient was done. I cannot 100% tell her that she does not have a PE although the odds of that are very low. With shared decision making we will be ordering CT of the chest rule out PE protocol. Vital Signs Vital signs: Initial Vital Signs Temperature 98.7 F 06/06/24 11:28 Temperature Source Temporal Artery Scan 06/06/24 11:28 Pulse Rate 92 06/06/24 11:28 Respiratory Rate 06/06/24 11:28 Blood Pressure 134/74 06/06/24 11:28 Blood Pressure Mean 94 06/06/24 11:28 Pulse Oximetry 99 06/06/24 11:28 Oxygen Delivery Method Room Air 06/06/24 11:28 Vital Signs Temperature 98.7 F 06/06/24 11:28 Pulse Rate 92 06/06/24 11:28 Respiratory Rate 06/06/24 11:28 Blood Pressure 134/74 06/06/24 11:28 Pulse Oximetry 99 06/06/24 11:28 Oxygen Delivery Method Room Air 06/06/24 11:28 Temperature 98.7 F 06/06/24 11:28 Pulse Rate 82 06/06/24 15:08 Respiratory Rate 16 06/06/24 15:08 Blood Pressure 122/63 06/06/24 15:08 Pulse Oximetry 98 06/06/24 15:08 Oxygen Delivery Method Room Air 06/06/24 15:08 MDM - SOB/Dyspnea MDM Narrative Medical decision making narrative: 1. Shortness of breath-at this time I suspect that this may be a combination of a twin causing early crowding of the lungs in association with mildly depressed hemoglobin of 10.6. There is no evidence of PE, pneumonia, pneumothorax, electrolyte imbalance to to have caused symptoms. Patient is wondering if perhaps the event with the dog yesterday maybe strained some muscles and that is what she is feeling. Course it is certainly possible. EKG did not show any concerning evidence of ischemia, arrhythmia. Troponin is negative x2. No other incidental findings noted on CT of the chest including pneumonia, pneumothorax, congestive heart failure, pericardial effusion. 2. -twin . No other concerns after discussion with OB. 3. Disposition-home at this time. Compression stockings for long travel times as they will be going to [place] driving 5 hours. Seek medical attention for worsening symptoms and as needed. Suggest iron supplement and increasing Colace to twice a day to prevent constipation. Recheck hemoglobin next week upon return. Note: Urinalysis does not show evidence of UTI but does show bacteria. Given that she is will have a urine culture ordered. Medical Records Attestation: I reviewed the patient's medical records. Lab Data Attestation: I reviewed the patient's lab results. Labs: Lab Results 06/06/24 06/06/24 06/06/24 Range/Units 11:44 12:35 14:42 WBC 8.44 (4.50-11.00) K/uL RBC 3.45 L (4.00-5.20) m/uL Hgb 10.6 L (12.0-16.0) gm/dL Hct 32.4 L (33.0-51.0) % MCV 94 (80-100) fL MCH 31 (26-34) pg MCHC 33 (32-36) gm/dL RDW Coeff of Yon 13.0 (11.5-15.5) % Plt Count 167 (140-440) K/uL Neut % (Auto) 85.9 H (42.0-72.0) % Lymph % (Auto) 9.0 L (20-44) % [place] % (Auto) 4.3 (0.0-11.0) % Eos % (Auto) 0.1 (0.0-7.0) % Baso % (Auto) 0.1 (0.0-3.0) % Neut # (Auto) 7.20 H (1.7-7.0) K/uL Lymph # (Auto) 0.80 L (0.90-2.90) K/uL [place] # (Auto) 0.40 (0.00-0.90) K/UL Eos # (Auto) 0.01 (0.00-0.50) K/uL Baso # (Auto) 0.01 (0.00-0.30) K/uL Abs Immat Gran (auto) 0.05 (0.00-0.30) K/uL Imm/Tot Granulo (auto) 0.6 % D-Dimer Quant (PE/DVT) 0.58 H (0.00-0.50) ug/ml Sodium 134 L (135-149) mmol/L Potassium 3.5 L (3.6-5.1) mmol/L Chloride 105 (96-114) mmol/L Carbon Dioxide 22 (20-32) mmol/L Anion Gap 7 (7-15) mEq/L BUN 6 (5-24) mg/dL Creatinine 0.4 L (0.5-1.5) mg/dL Estimated Creat Clear 181.69 Estimated GFR 135 ml/min Glucose 77 (60-115) mg/dL Calcium 8.8 (8.4-10.6) mg/dL Magnesium 1.8 (1.5-2.6) mg/dL Total Bilirubin 0.4 (0.1-1.5) mg/dL AST 25 (12-35) U/L ALT 28 (4-35) U/L Alkaline Phosphatase 56 (40-150) U/L Troponin I < 0.01 L < 0.01 L (0.01-0.04) ng/mL C-Reactive Protein 2.1 H (0.5-1.0) mg/dL Total Protein 6.4 (6.0-8.3) g/dL Albumin 3.9 (3.3-5.0) g/dL Urine Color Yellow (Yellow) Urine Appearance Clear (Clear) Urine pH 7.0 (5.0-8.5) Ur Specific [place] 1.010 (1.000-1.030) Urine Protein Negative (Negative) Urine Glucose (UA) Negative (Negative) Urine Ketones Negative (Negative) Urine Blood Negative (Negative) Urine Nitrite Negative (Negative) Urine Bilirubin Negative (Negative) Urine Urobilinogen 0.2 (0.2-1.0) Ur Leukocyte Esterase Negative (Negative) Urine RBC 0-2 (0-2) Urine WBC 0-2 (0-5) Ur Squamous Epith Cells Moderate A (None-Few) Urine Bacteria Moderate A (None) SARS-CoV-2 (PCR) Negative SARS-CoV-2 (Negative) Influenza Type A (PCR) Negative PCR FLU A (Negative) Influenza Type B (PCR) Negative PCR FLU B (Negative) RSV (PCR) Negative PCR RSV (Negative) Imaging Data Venous US: Attestation: I have reviewed the pertinent imaging results. Radiologist's impression: Sonographic imaging demonstrates the common femoral, deep femoral, superficial femoral, popliteal, posterior tibial and greater saphenous veins to be fully compressible with normal color Doppler blood flow in both lower extremities. IMPRESSION: Normal bilateral lower extremity venous ultrasound, no sign of deep venous thrombosis. CT scan - chest: Attestation: I have reviewed the pertinent imaging results. My impression: I do not note any large PE or pneumonia Radiologist's impression: Heart and vasculature: Contrast opacification of the pulmonary arterial tree is adequate. No sign of pulmonary embolism. Heart size is normal. Thoracic aorta and pulmonary artery are normal in caliber. Lungs and pleural: No suspicious nodules or infiltrates. No pleural effusions, pleural thickening, or pneumothorax. Lymph nodes/mediastinum: No mediastinal, hilar, or axillary adenopathy. Chest wall: No masses. Upper abdomen: Normal. Bones: Unremarkable for age. IMPRESSION: Unremarkable chest CTA. No evidence of pulmonary embolus. ECG Data ECG interpretation date: 06/06/24 Discharge Plan Discharge Clinical Impression: Shortness of breath Patient Disposition: Home, Self-Care Condition: Improved Additional Instructions: At this time your chest CT does not show any evidence of pneumonia nor blood clots. Your electrolytes are normal. I do not have an explanation for your shortness of breath at this time except for the fact that your hemoglobin is a little bit low at 10.6. Would suggest increasing iron rich foods or an iron supplement. Please have this recheck to when you return from a walking next week. I do like the idea of compression stockings as you are traveling. Try to stop frequently or move your legs often while you are in the car. Seek medical attention for worsening symptoms. Prescriptions: No Action prenat.vits,toribio,hkb-rtks-hskdi Tablet 1 tab PO QDAY magnesium 200 mg tablet 200 mg PO QDAY aspirin [Adult Low Dose Aspirin] 81 mg tablet,delayed release (DR/EC) 81 mg PO QDAY polyethylene glycol 3350 17 gram powder in packet 17 g PO QDAY docusate sodium 100 mg capsule 100 mg PO QDAY acetaminophen [Tylenol Extra Strength] 500 mg tablet 1,000 mg PO QID PRN Follow Up/Referrals: Magnolia Espinoza PA-C [Physician Residential Finish Carpenter] - Stand Alone Forms: [employer] Info Instructions
[2024-06-06 11:51] LABS: Appearance Urine Clear (Clear); Bilirubin Urine Negative (Negative); Blood Urine Negative (Negative); Color Urine Yellow (Yellow); Glucose Urine Negative (Negative); Ketones Urine Negative (Negative); Leukocyte Esterase Urine Negative (Negative); Nitrite Urine Negative (Negative); Protein Urine Negative (Negative); Urobilinogen Urine 0.2 (0.2-1.0)
--- NOTE | 2024-06-06 11:51 | ED.NURSE ---
Contacted OB charge to inform of OB patient in ED.
--- NOTE | 2024-06-06 12:02 | CRLHL7_ITS ---
For Patients: As a result of the Century Cures Act, medical imaging exams and procedure reports are released immediately into your electronic medical record. You may view this report before your referring provider. If you have questions, please contact your health care provider. INDICATION: Shortness of breath, with twins TECHNIQUE: Ultrasound venous duplex lower extremity bilateral. Compression venous exam was performed using almodovar-scale, color Doppler, and spectral Doppler imaging. COMPARISON: None. FINDINGS: Sonographic imaging demonstrates the common femoral, deep femoral, superficial femoral, popliteal, posterior tibial and greater saphenous veins to be fully compressible with normal color Doppler blood flow in both lower extremities. IMPRESSION: Normal bilateral lower extremity venous ultrasound, no sign of deep venous thrombosis. Dictated by Darion Thompson MD @ 06/06/2024 1:19:15 PM (Electronically Signed)
--- OUTSIDE RECORDS SUMMARY | 2024-06-06 12:11 | XMS_ITS | Encounter Summary ---
Author Organization Issue Address [address] [place] [id number] Care Team Providers Care Risk Management Internship Name Role Phone No Ref-Primary, Physician Primary Care Provider Paulino Barker MD Unavailable [phone] Encounter Details Date Type Department Care Team (Latest Contact Info) Description 04/22/2024 Travel Social History Tobacco Use Types Packs/Day Years Used Date Smoking Tobacco: Never Cigarettes Qu it: 05/19/2021 Smokeless Tobacco: Never Alcohol Use Standard Drinks/Week Comments Not Currently 0 (1 standard drink = 0.6 oz pur e alcohol) social PHQ-2 Answer Date Recorded PHQ-2 Score 0 06/06/2021 Adolescent Education Answer Date Record ed Getting School Help Needed Not on file 06/08 Estimated Date of Delivery Comme nts Yes 10/23/2024 Based on Ultraso und, Twin B Sex and Gender Information Value Date Recorded [...] Total Score: 3 09/19/19 20 10:37 AM ROUGH RICE GRADER documented as of this encounter Care Teams Risk Management Internship Relationship Specialty Start Date End Date No Ref-Primary, Physician PCP - General 09/19/19 Paulino Barker MD [address] [address] Assigned PCP 08/25/21 documented as of this encounter
--- OUTSIDE RECORDS SUMMARY | 2024-06-06 12:11 | XMS_ITS | Encounter Summary ---
Author Organization [facility] Address [address] [place] [address] Care Team Providers Care Supervisor Plastering Name Role Phone No Ref-Primary, Physician Primary Care Provider Paulino Barker MD Unavailable [phone] Encounter Details Date Type Department Care Team (Latest Contact Info) Description 04/17/2024 Travel Social History Tobacco Use Types Packs/Day [...] Total Score: 3 09/19/19 20 10:37 AM OCEAN FREIGHT AGENT documented as of this encounter Care Teams Supervisor Plastering Relationship Specialty Start Date End Date No Ref-Primary, Physician PCP - General 09/19/19 Paulino Barker MD [address] [address] Assigned PCP 08/25/21 documented as of this encounter
--- OUTSIDE RECORDS SUMMARY | 2024-06-06 12:11 | XMS_ITS | Encounter Summary ---
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
--- OUTSIDE RECORDS SUMMARY | 2024-06-06 12:11 | XMS_ITS | Encounter Summary ---
Author Organization [facility] Address [facility] hospital[facility] [place] [address] Care Team Providers Care Application Specialist Name Role Phone No Ref-Primary, Physician Primary Care Provider Paulino Barker MD Unavailable [phone] Reason for Visit * Reason Comments Ultrasound L2-di/di twins Encounter Details Date Type Department Care Team (Late st Contact Info) Description 05/27/2024 10:45 AM CDT Office Visit [facility] [place] [address] [facility] [address] [place] [address] Josue Pace MD [address] [facility] [address] [place] [address] Dichorionic diamniotic twin in second trimester (Primary Dx) Social History Tobacco Use Types Packs/Day Years [...] AM CDT documented as of this encounter Last Filed Vital Signs Vital Sign Reading Time Taken Comments Blood Pressure 114/75 05/27/2024 10:48 AM CDT Pulse 75 05/27/2024 10:48 AM CDT Temperature - - Respiratory Rate 18 05/27/2024 10:48 AM CDT Oxygen Saturation 100% 05/27/2024 10:48 AM CDT Inhaled Oxygen Concentration - - Weight - - Height - - Body Mass Index - - documented in this encounter Progress Notes * Josue Pace MD - 05/27/2024 10:45 AM CDT Please see full imaging report from [employer] program under imaging tab. Josue Pace MD Maternal Medicine documented in this encounter Nursing Notes * Nuvia Arroyo RN - 05/27/2024 10:45 AM CDT Patient reports good movement, denies contractions, leaking of fluid, or bleeding. Amaris states over the last week she has had a few episodes of feeling dizzy and lightheaded, happens in the morning and sometimes after she eats, she has not notified her provider. Discussed changing positions slowly, adequate hydration and notifying her provider if she has any more episodes. VS wnl today. SBAR given to JEWEL BUCKNER, see their note in Epic. 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
--- OUTSIDE RECORDS SUMMARY | 2024-06-06 12:11 | XMS_ITS | Encounter Summary ---
Author Organization [facility] Address [address] [place] [id number] Care Team Providers Care Accounting Practice Manager Name Role Phone No Ref-Primary, Physician Primary Care Provider Paulino Barker MD Unavailable [phone] Encounter Details Date Type Department Care Team (Latest Contact Info) Description 05/22/2024 Travel Social History Tobacco Use Types Packs/Day [...] Total Score: 3 09/19/19 20 10:37 AM NURSING SPECIALIST documented as of this encounter Care Teams Accounting Practice Manager Relationship Specialty Start Date End Date No Ref-Primary, Physician PCP - General 09/19/19 Paulino Barker MD [id number] [address] Assigned PCP 08/25/21 documented as of this encounter
--- OUTSIDE RECORDS SUMMARY | 2024-06-06 12:11 | XMS_ITS | Referral Summary ---
Author Organization [facility] Address [address] [place] [id number] Care Team Providers Care Investigator Internal Revenue Name Role Phone No Ref-Primary, Physician Primary Care Provider Paulino Barker MD Unavailable [phone] Encounters Date Type Department Care Team Description 05/27/2024 Travel 05/27/2024 10:45 AM CDT Office Visit [facility] [address] [place] [address] Josue Pace MD Dichorionic diamniotic twin in second trimester (Primary Dx) 05/27/2024 9:10 AM CDT - 05/27/2024 11:59 PM CDT Hospital Encounter [facility] [address] [place] [address] Josue Pace MD Dichorionic diamniotic twin in first trimester Discharge Disposition: Home or Self Care 05/22/2024 Travel 04/22/2024 Travel 04/22/2024 10:59 AM CDT - 04/22/2024 11:59 PM CDT Hospital Encounter [facility] [address] [place] [address] Elizabeth Yo MD Jones, Cresta Wedel, MD Twin Discharge Disposition: Home or Self Care 04/22/2024 11:45 AM CDT Office Visit [facility] [address] [facility] [address] [place] [phone] Elizabeth Yo MD Jones, Josue Gleason MD Dichorionic diamniotic twin in first trimester (Primary Dx); Twin , antepartum, unspecified multiple gestation type 04/17/2024 Travel 04/15/2024 PRE VISIT [facility] [address] [facility] [address] [place] [phone] Armida Shea RN Ultrasound (NT- Twin Chorionicity ); Consult (Twin Chorionicity ) 03/19/2024 Orders Only [facility] [address] [place] [address] Magnolia Moreno RN Twin (Primary Dx) 03/18/2024 Medical Correspondence [facility] [address] [place] [phone] Scan, Non-Provider 03/18/2024 Transcribe Orders [facility] [address] [place], [place] [id number] December related condition, antepartum (Primary Dx) 03/18/2024 Transcribe Orders [facility] [address] [place] [address] [email or web address] Encounter for preconception consultation (Primary Dx) from Last 3 Months Allergies Active Allergy Reactions Criticality Noted Date [...] Date Diagnosed Date (spontaneous vaginal delivery) 09/19/2019 Estimated Date of Delivery Comme nts Yes 10/23/2024 Based on Ultraso und, Twin B Immunizations Name Administration Dates Next Due DTAP [...] Pulse 75 05/27/2024 10:48 AM CDT Temperature 36.9 ??C (98.5 ??F) 02/15/2016 6:32 PM CD T Respiratory Rate 18 05/27/2024 10:4 8 AM CDT Oxygen Saturation 100% 05/27/2024 10: 48 AM CDT Inhaled Oxygen Concentration - - Weight 70.3 kg (154 lb 14.4 oz) 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 Height 166.4 cm (5' 5.5) 07/21/2021 9:49 AM CDT Body Mass Index 25.38 07/21/2021 9:49 AM CDT Plan of Treatment Not on file Procedures Procedure Name Priority Date/Time Associated Diagnosis Comments MFM TWINS US COMPREHENSIVE Routine 05/27/2024 10:48 AM CDT Dichorionic diamniotic twin in first trimester MFM TWINS NUCHAL TRANSLUCENCY W US Routine 04/22/2024 11:55 AM CDT Twin HIV ANTIGEN ANTIBODY COMBO Routine 06/23/2021 10:29 AM CDT care, subsequent in first trimester HEPATITIS C ANTIBODY Routine 06/23/2021 10:29 AM CDT care, subsequent in first trimester GYNECOLOGIC CYTOLOGY Routine 06/23/2021 9:53 AM CDT Screening for cervical cancer care, subsequent in first trimester from Last 3 Months or Most Recently Relevant to Health Maintenance Results * MFM Twins US Comprehensive (05/27/2024 10:48 AM CDT) Anatomical Region Laterality Modality Ultrasound 05/27/2024 9:22 AM CDT Impressions 05/27/2024 11:16 AM CDT IMPRESSION ----- Dichorionic diamniotic twins at 18w 5d gestational age. Fetus 1 1. No anomalies commonly detected by ultrasound were identified in the detailed anatomic survey within the limits of ultrasound. 2. Growth parameters and estimated weight were consistent with gestational age predicted by assigned MEAGAN. 3. The amniotic fluid volume appeared normal. Fetus 2 1. No anomalies commonly detected by ultrasound were identified in the detailed anatomic survey within the limits of ultrasound. 2. Growth parameters and estimated weight were consistent with gestational age predicted by assigned MEAGAN. The inter-twin discordance was 4.9 %. 3. The amniotic fluid volume appeared normal. On transabdominal imaging the cervix appears long and closed. Narrative 05/27/2024 11:16 AM CDT ?Comprehensive ----- Pat. Name: WALTER CRANE ? Study Date: ??05/27/2024 9:22am Pat. NO: ??[id number] ?Referring ??MD: BRAD JUDI Site: ? Data Base Design Analyst: Ramin Gillette RDMS : ??1990 ?Age: ?? 33 ----- INDICATION ----- Dichorionic, Diamniotic Twin gestation. History of gestational hypertension. METHOD ----- Transabdominal ultrasound examination. View: Sufficient. ----- Twin . Number of fetuses: 2. Dichorionic-diamniotic DATING ----- ? Date ?Details ?Gest. age ?MEAGAN LMP ?01/06/2024 ? 20 w + 2 d ? 10/12/2024 Previous U/S ?03/07/2024 ?GA, GA 7 w + 1 d ? 18 w + 5 d ? 10/23/2024 U/S Fetus 1 ? 05/27/2024 ? based upon AC, BPD, Femur, HC ?19 w + 0 d ? 10/21/2024 U/S Fetus 2 ?based upon AC, BPD, Femur, HC ?19 w + 2 d ? 10/19/2024 Assigned dating ?based on ultrasound (GA), selected on 05/27/2024 ?18 w + 5 d ? 10/23/2024 Fetus 1: GENERAL EVALUATION ----- Cardiac activity present. FHR 146 bpm. movements: present. Presentation: cephalic, maternal left. presenting. Placenta: Posterior, No Previa, > 2 cm from internal os Umbilical cord: 3 vessel cord Amniotic fluid: Amount of AF: normal. MVP 7.8 cm Fetus 2: GENERAL EVALUATION ----- Cardiac activity present. FHR 153 bpm. movements: present. Presentation: cephalic, maternal right. superior. Placenta: Posterior Umbilical cord: 3 vessel cord Amniotic fluid: Amount of AF: normal. MVP 7.3 cm Fetus 1: BIOMETRY ----- BPD ? 43.0 ?mm ? 19w 0d ?Wojciech OFAndrey ? 56.6 ?mm ? 18w 5d ?Nicolaides HC ? 161.1 ?mm ? 18w 6d ? Hadlock Cerebellum tr ?19.1 ?mm ? 18w 4d ? Nicolaides Nuchal fold ?3.0 ? mm AC ? 136.6 ?mm ? 19w 1d ?60% ?Hadlock Femur ?28.5 ?mm ? 18w 5d ? Hadlock Humerus ? 29.0 ? mm ?19w 3d ?Bhavana Weight Calculation: EFW ?265 ? g ? 57% ?Hadlock EFW (lb,oz) ?0 lb 9 ?oz EFW by ?Hadlock ([id number]) EFW discordance ?4.9 ? % Head / Face / Neck Biometry: Marine Firer ?5.5 ? mm CM ? 4.1 ? mm Nasal bone ? 5.7 ?mm Fetus 2: BIOMETRY ----- BPD ? 45.8 ?mm ? 19w 6d ?Hadlock OFD ? 57.5 ?mm ? 18w 6d ?Nicolaides HC ? 165.9 ?mm ? 19w 2d ? Hadlock Cerebellum tr ?18.7 ?mm ? 18w 2d ? Nicolaides Nuchal fold ?3.2 ? mm AC ? 144.5 ?mm ? 19w 5d ?80% ?Hadlock Femur ?27.6 ?mm ? 18w 3d ? Hadlock Humerus ? 27.9 ? mm ?19w 0d ?Bhavana Weight Calculation: EFW ?279 ? g ? 72% ?Hadlock EFW (lb,oz) ?0 lb 10 ? oz EFW by ?Hadlock ([id number]) EFW discordance ?4.9 ? % Head / Face / Neck Biometry: Marine Firer ?7.1 ? mm CM ? 2.6 ? mm Nasal bone ? 5.9 ?mm Fetus 1: ANATOMY ----- The following structures appear normal: Head / Neck ? Cranium. Head size. Head shape. Lateral ventricles. Choroid plexus. Midline falx. Cavum septi pellucidi. Cerebellum. Cisterna magna. ? Parenchyma. Thalami. Vermis. ? Neck. Nuchal fold. Face ? Lips. Profile. Nose. Maxilla. Mandible. Orbits. Lens. Heart / Thorax ?4-chamber view. RVOT view. LVOT view. 3-vessel view. 8-jmrrmi-yykcwos view. Situs. Aortic arch view. Bicaval view. Ductal arch view. Superior ? vena cava. Inferior vena cava. Cardiac position. Cardiac size. Cardiac rhythm. ? Right lung. Left lung. Diaphragm. Abdomen ? Abdom. wall. Cord insertion. Stomach. Kidneys. Bladder. Liver. Bowel. Genitals. Spine ?Cervical spine. Thoracic spine. Lumbar spine. Sacral spine. Extremities / Skeleton ?Arms. Right arm. Right hand. Left arm. Left hand. Legs. Right leg. Right foot. Left leg. Left foot. Fetus 2: ANATOMY ----- The following structures appear normal: Head / Neck ? Cranium. Head size. Head shape. Lateral ventricles. Choroid plexus. Midline falx. Cavum septi pellucidi. Cerebellum. Cisterna magna. ? Parenchyma. Thalami. Vermis. ? Neck. Nuchal fold. Face ? Lips. Profile. Nose. Maxilla. Mandible. Orbits. Lens. Heart / Thorax ?4-chamber view. RVOT view. LVOT view. 3-vessel view. 5-brdeab-ngbuxgi view. Situs. Aortic arch view. Bicaval view. Ductal arch view. Superior ? vena cava. Inferior vena cava. Cardiac position. Cardiac size. ? Right lung. Left lung. Diaphragm. Abdomen ? Abdom. wall. Cord insertion. Stomach. Kidneys. Bladder. Liver. Bowel. Genitals. Spine ?Cervical spine. Thoracic spine. Lumbar spine. Sacral spine. Extremities / Skeleton ?Arms. Right hand. Left hand. Legs. Right foot. Left foot. MATERNAL STRUCTURES ----- Cervix ?Visualized ? Appearance: Appears Closed ? Approach - Transabdominal: Cervical length 39.2 mm Right Ovary ?Visualized Left Ovary ?Visualized RECOMMENDATION ----- Thank-you for referring your patient for a comprehensive ultrasound due to dichorionic diamniotic twin . She had a previous consultation with [facility] on 04/22/24. I discussed the findings on today's ultrasound with the patient. I reviewed the limitations of ultrasound both in detecting aneuploidy and structural abnormalities. Ultrasound can routinely detect 80-90% of structural abnormalities. She opted not to do aneuploidy screening or testing. Serial ultrasounds for growth every 4 weeks are recommended, and these can be done through radiology in [place]. If complications or US abnormalities arise, she should be re-referred to [facility] for follow up. BPP weekly at 36 weeks also recommended. Return to primary provider for continued care. If you have questions regarding today's evaluation or if we can be of further service, please contact the [facility]. anomalies may be present but not detected Procedure Note Josue Pace MD - 05/27/2024 Comprehensive ----- Pat. Name: WALTER CRANE Study Date: 05/27/2024 9:22am Pat. NO: [id number] Referring MD: BRAD LAU Site: Data Base Design Analyst: Ramin Gillette RDMS : 1990 Age: 33 ----- INDICATION ----- Dichorionic, Diamniotic Twin gestation. History of gestational hypertension. METHOD ----- Transabdominal ultrasound examination. View: Sufficient. ----- Twin . Number of fetuses: 2. Dichorionic-diamniotic DATING ----- DateDetailsGest. age MEAGAN LMP w + 2 d 10/12/2024 Previous U/S 03/07/2024 GA, GA7 w + 1 d18 w + 5 d 10/23/2024 U/S Fetus 1 05/27/2024 basedupon AC, BPD, Femur, HC 19w + 0 d 10/21/2024 U/S Fetus 2based upon AC, BPD, Femur, HC19 w + 2 d 10/19/2024 Assigned dating based on ultrasound (GA), selected on05/27/2024 18w + 5 d 10/23/2024 Fetus 1: GENERAL EVALUATION ----- Cardiac activity present. FHR 146 bpm. movements: present.Presentation: cephalic, maternal left. presenting. Placenta: Posterior, No Previa, > 2 cm from internal os Umbilical cord: 3 vessel cord Amniotic fluid: Amount of AF: normal. MVP 7.8 cm Fetus 2: GENERAL EVALUATION ----- Cardiac activity present. FHR 153 bpm. movements: present.Presentation: cephalic, maternal right. superior. Placenta: Posterior Umbilical cord: 3 vessel cord Amniotic fluid: Amount of AF: normal. MVP 7.3 cm Fetus 1: BIOMETRY ----- BPD 43.0mm 19w 0dHadlock OFD 56.6mm 18w 5dNicolaides HC 161.1mm 18w 6dHadlock Cerebellum tr 19.1mm 18w 4dNicolaides Nuchal fold 3.0mm AC 136.6mm 19w 1d 60%Hadlock Femur 28.5mm 18w 5dHadlock Humerus 29.0mm 19w 3dJeanty Weight Calculation: EFW 265g 57%Hadlock EFW (lb,oz) 0 lb 9oz EFW by Hadlock([id number]-FL) EFW discordance 4.9% Head / Face / Neck Biometry: Marine Firer 5.5mm CM 4.1mm Nasal bone 5.7mm Fetus 2: BIOMETRY ----- BPD 45.8mm 19w 6dHadlock OFD 57.5mm 18w 6dNicolaides HC 165.9mm 19w 2dHadlock Cerebellum tr 18.7mm 18w 2dNicolaides Nuchal fold 3.2mm AC 144.5mm 19w 5d 80%Hadlock Femur 27.6mm 18w 3dHadlock Humerus 27.9mm 19w 0dJeanty Weight Calculation: EFW 279g 72%Hadlock EFW (lb,oz) 0 lb 10oz EFW by Hadlock([id number]-FL) EFW discordance 4.9% Head / Face / Neck Biometry: Marine Firer 7.1mm CM 2.6mm Nasal bone 5.9mm Fetus 1: ANATOMY ----- The following structures appear normal: Head / Neck Cranium. Head size. Head shape.Lateral ventricles. Choroid plexus. Midline falx. Cavum septi pellucidi.Cerebellum. Cisterna magna. Parenchyma. Thalami. Vermis. Neck. Nuchal fold. Face Lips. Profile. Nose. Maxilla.Mandible. Orbits. Lens. Heart / Thorax 4-chamber view. RVOT view. LVOT view.3-vessel view. 3-xyryyy-guoykgu view. Situs. Aortic arch view. Bicavalview. Ductal arch view. Superior vena cava. Inferior vena cava.Cardiac position. Cardiac size. Cardiac rhythm. Right lung. Left lung.Diaphragm. Abdomen Abdom. wall. Cord insertion. Stomach.Kidneys. Bladder. Liver. Bowel. Genitals. Spine Cervical spine. Thoracic spine.Lumbar spine. Sacral spine. Extremities / Skeleton Arms. Right arm. Right hand. Left arm.Left hand. Legs. Right leg. Right foot. Left leg. Left foot. Fetus 2: ANATOMY ----- The following structures appear normal: Head / Neck Cranium. Head size. Head shape.Lateral ventricles. Choroid plexus. Midline falx. Cavum septi pellucidi.Cerebellum. Cisterna magna. Parenchyma. Thalami. Vermis. Neck. Nuchal fold. Face Lips. Profile. Nose. Maxilla.Mandible. Orbits. Lens. Heart / Thorax 4-chamber view. RVOT view. LVOT view.3-vessel view. 4-getxhn-feisrqn view. Situs. Aortic arch view. Bicavalview. Ductal arch view. Superior vena cava. Inferior vena cava.Cardiac position. Cardiac size. Right lung. Left lung.Diaphragm. Abdomen Abdom. wall. Cord insertion. Stomach.Kidneys. Bladder. Liver. Bowel. Genitals. Spine Cervical spine. Thoracic spine.Lumbar spine. Sacral spine. Extremities / Skeleton Arms. Right hand. Left hand. Legs. Rightfoot. Left foot. MATERNAL STRUCTURES ----- Cervix Visualized Appearance: Appears Closed Approach - Transabdominal:Cervical length 39.2 mm Right Ovary Visualized Left Ovary Visualized RECOMMENDATION ----- Thank-you for referring your patient for a comprehensive ultrasound due todichorionic diamniotic twin . She had a previous consultation with [facility] on 04/22/24. I discussed the findings on today's ultrasound with the patient. Ireviewed the limitations of ultrasound both in detecting aneuploidy andstructural abnormalities. Ultrasound can routinely detect 80-90% of structural abnormalities. She opted not todo aneuploidy screening or testing. Serial ultrasounds for growth every 4 weeks are recommended, andthese can be done through radiology in [place]. If complications or USabnormalities arise, she should be re-referred to [facility] for follow up. BPP weekly at 36 weeks also recommended. Return to primary provider for continued care. If you have questions regarding today's evaluation or if we can be offurther service, please contact the [facility]. anomalies may be present but not detected IMPRESSION ----- Dichorionic diamniotic twins at 18w 5d gestational age. Fetus 1 1. No anomalies commonly detected by ultrasound were identified inthe detailed anatomic survey within the limits of prenatalultrasound. 2. Growth parameters and estimated weight were consistent withgestational age predicted by assigned MEAGAN. 3. The amniotic fluid volume appeared normal. Fetus 2 1. No anomalies commonly detected by ultrasound were identified inthe detailed anatomic survey within the limits of prenatalultrasound. 2. Growth parameters and estimated weight were consistent withgestational age predicted by assigned MEAGAN. The inter-twin discordance was4.9 %. 3. The amniotic fluid volume appeared normal. On transabdominal imaging the cervix appears long and closed. Josue Pace MD IMG [facility] US ORDERAB LES * [facility] Twins Nuchal Trans w/US (04/22/2024 11:55 AM CDT) Anatomical Region Laterality Modality Ultrasound 04/22/2024 11:0 2 AM CDT Impressions 04/22/2024 2:08 PM CDT IMPRESSION ----- 1. Dichorionic diamniotic twins at 13w 5d gestational age. 2. There are separate placentas with a thick inter-twin membrane consistent with a dichorionic diamniotic twin . 3. Sonographic biometry agrees with gestational age predicted by assigned MEAGAN for both fetuses. 4. The nuchal translucency measurement is within the normal range in both fetuses. 5. The nasal bone was visualized in both twins. 6. Visualized anatomy appears normal for early gestational age. Narrative 04/22/2024 2:08 PM CDT ?NT ----- Pat. Name: WALTER CRANE ? Study Date: ??04/22/2024 11:02am Pat. NO: ??[id number] ?Referring ??: BRAD LAU Site: ? Data Base Design Analyst: Giana Tatum RDMS : ??1990 ?Age: ?? 33 ----- INDICATION ----- Twin gestation. Determine chorionicity. First trimester screening. METHOD ----- Transabdominal ultrasound examination. View: Sufficient. ----- Twin . Number of fetuses: 2. Dichorionic-diamniotic DATING ----- ? Date ?Details ?Gest. age ?MEAGAN LMP ?01/06/2024 ? 15 w + 2 d ? 10/12/2024 Previous U/S ?03/07/2024 ?GA, GA 7 w + 1 d ? 13 w + 5 d ? 10/23/2024 U/S Fetus 1 ? 04/22/2024 ?based upon CRL ? 13 w + 6 d ? 10/22/2024 U/S Fetus 2 ?based upon CRL ? 14 w + 1 d ? 10/20/2024 Assigned dating ?based on ultrasound (GA), selected on 04/22/2024 ?13 w + 5 d ? 10/23/2024 Fetus 1: GENERAL EVALUATION ----- Cardiac activity present Placenta: posterior Cord vessels: normal insertion Amniotic fluid: normal Fetus 2: GENERAL EVALUATION ----- Cardiac activity present Placenta: posterior Cord vessels: normal insertion Amniotic fluid: normal Fetus 1: BIOMETRY ----- FHR ? 143 ? bpm CRL ? 77.2 ?mm ? 13w 6d ? Hadlock NT ?1.80 ? mm Fetus 2: BIOMETRY ----- FHR ? 146 ? bpm CRL ? 82.7 ?mm ? 14w 1d ? Hadlock NT ?1.70 ? mm Fetus 1: ANATOMY ----- Face: Nasal bone present Neck: Normal Nuchal Translucency The following structures appear normal: Cranium. Abdominal wall. Stomach. Bladder. Arms. Legs. Fetus 2: ANATOMY ----- Face: Nasal bone present Neck: Normal Nuchal Translucency The following structures appear normal: Cranium. Abdominal wall. Stomach. Bladder. Arms. Legs. MATERNAL STRUCTURES ----- Cervix ?Visualized ? Appearance: Appears Closed ? Approach - Transabdominal Right Ovary ?Visualized Left Ovary ?Not visualized RECOMMENDATION ----- Thank-you for referring your patient for a nuchal translucency ultrasound for twin gestation. She was scheduled for an [facility] consult for twin chorionicity - a di-di twin was identified today. She is a 33 year old with two prior term vaginal deliveries: 2018 41 weeks, 7 pound male infant, gestational hypertension 2021 40 weeks, 7 pound female infant, no complications She also had a D and C for a missed in 07/2018. She has opted not to have genetic screening in this . She has no CHTN. Baseline serum labs are all within normal limits. We discussed the results of the ultrasound with the patient. We discussed the complications of twin pregnancies. Specifically we reviewed the maternal and risks including an increased risk of and subsequent effects of prematurity and growth restriction (FGR) and an increased risk of gHTN disorders. We would recommend she take a low dose aspirin to reduce the risk of preeclampsia which she is currently taking. I discussed the findings on today's ultrasound with the patient. I reviewed the limitations of ultrasound both in detecting aneuploidy and structural abnormalities. Ultrasound can routinely detect 80-90% of structural abnormalities. She plan to return at 19-20 weeks for a detailed twin anatomic survey. She will continue OB care in [place]. She will also need serial growth US as well as BPPs at 36 weeks. I assume that some of this surveillance will be done locally. I did schedule her anatomic survey here with [facility]. anomalies may be present but not detected I spent a total of 30 minutes on the date of this encounter including preparing to see the patient (reviewing medical records/tests), counseling and discussing the plan of care, documenting the visit in the electronic medical record, and communicating with other health child care and/or care coordination. Procedure Note Josue Pace MD - 04/22/2024 NT ----- Pat. Name: WALTER CRANE Study Date: 04/22/2024 11:02am Pat. NO: [id number] Referring MD: BRAD LAU Site: Data Base Design Analyst: Giana Tatum RDMS : 1990 Age: 33 ----- INDICATION ----- Twin gestation. Determine chorionicity. First trimester screening. METHOD ----- Transabdominal ultrasound examination. View: Sufficient. ----- Twin . Number of fetuses: 2. Dichorionic-diamniotic DATING ----- DateDetailsGest. age MEAGAN LMP w + 2 d 10/12/2024 Previous U/S 03/07/2024 GA, GA7 w + 1 d13 w + 5 d 10/23/2024 U/S Fetus 1 04/22/2024 basedupon CRL13 w + 6 d 10/22/2024 U/S Fetus 2based upon CRL14 w + 1 d 10/20/2024 Assigned dating based on ultrasound (GA), selected on w + 5 d 10/23/2024 Fetus 1: GENERAL EVALUATION ----- Cardiac activity present Placenta: posterior Cord vessels: normal insertion Amniotic fluid: normal Fetus 2: GENERAL EVALUATION ----- Cardiac activity present Placenta: posterior Cord vessels: normal insertion Amniotic fluid: normal Fetus 1: BIOMETRY ----- FHR 143bpm CRL 77.2mm 13w 6dHadlock NT 1.80mm Fetus 2: BIOMETRY ----- FHR 146bpm CRL 82.7mm 14w 1dHadlock NT 1.70mm Fetus 1: ANATOMY ----- Face: Nasal bone present Neck: Normal Nuchal Translucency The following structures appear normal: Cranium. Abdominal wall. Stomach. Bladder. Arms. Legs. Fetus 2: ANATOMY ----- Face: Nasal bone present Neck: Normal Nuchal Translucency The following structures appear normal: Cranium. Abdominal wall. Stomach. Bladder. Arms. Legs. MATERNAL STRUCTURES ----- Cervix Visualized Appearance: Appears Closed Approach - Transabdominal Right Ovary Visualized Left Ovary Not visualized RECOMMENDATION ----- Thank-you for referring your patient for a nuchal translucency ultrasoundfor twin gestation. She was scheduled for an [facility] consult for twin chorionicity - a di-di twinpregnancy was identified today. She is a 33 year old with two prior term vaginal deliveries: 2018 41 weeks, 7 pound male , gestational hypertension 2021 40 weeks, 7 pound female , no complications She also had a D and C for a missed in 07/2018. She has opted not to have genetic screening in this . She has no CHTN. Baseline serum labs are all within normal limits. We discussed the results of the ultrasound with the patient. We discussed the complications of twin pregnancies. Specifically wereviewed the maternal and risks including an increased risk ofpreterm and subsequent effects of prematurity and growth restriction (FGR) and an increasedrisk of gHTN disorders. We would recommend she take a low dose aspirin toreduce the risk of preeclampsia which she is currently taking. I discussed the findings on today's ultrasound with the patient. Ireviewed the limitations of ultrasound both in detecting aneuploidy andstructural abnormalities. Ultrasound can routinely detect 80-90% of structural abnormalities. She plan to return at 19-20 weeks for a detailed twin anatomic survey. Lyla continue OB care in [place]. She will also need serial growth US as well as BPPs at 36 weeks. I assumethat some of this surveillance will be done locally. I did schedule heranatomic survey here with [facility]. anomalies may be present but not detected I spent a total of 30 minutes on the date of this encounter includingpreparing to see the patient (reviewing medical records/tests), counselingand discussing the plan of care, documenting the visit in the electronic medical record, andcommunicating with other health child care and/or carecoordination. IMPRESSION ----- 1. Dichorionic diamniotic twins at 13w 5d gestational age. 2. There are separate placentas with a thick inter-twin membraneconsistent with a dichorionic diamniotic twin . 3. Sonographic biometry agrees with gestational age predicted by assignedEDD for both fetuses. 4. The nuchal translucency measurement is within the normal range in bothfetuses. 5. The nasal bone was visualized in both twins. 6. Visualized anatomy appears normal for early gestational age. Elizabeth Yo MD [facility] US ORDERABLE S * HIV Antigen Antibody Combo (06/23/2021 10:29 AM CDT) [facility] HIV Antigen Antibody Combo Nonreactive Nonreactive 06/23/2021 9:18 PM CDT [facility] Comment:HIV-1 p24 Ag & HIV-1 /HIV-2 Ab Not Detected Blood BLOOD SPECIMEN / Unknown Venipuncture / Unknown 06/23/2021 10:29 AM CDT 06/23/2021 10:30 AM CDT Comfort Louise MD LAB - BLOOD ORDERABLES [facility] Special[facility] Core Lab [address] [facility], [address] [place] [address], [place] [phone] * Hepatitis C antibody (06/23/2021 10:29 AM CDT) [facility] Hepatitis C Antibody Nonreactive Nonreactive 06/23/2021 9:18 PM CDT [facility] Blood BLOOD SPECIMEN / Unknown Venipuncture / Unknown 06/23/2021 10:29 AM CDT 06/23/2021 10:30 AM CDT Narrative [facility] CORE - 06/23/2021 9:18 PM CDT Assay performance characteristics have not been established for newborns, infants, and children. Comfort Louise MD LAB - BLOOD ORDERABLES [facility] C[facility] Special[facility] Core Lab [address] [facility], [id number] [address], [facility] [phone] * Pap imaged thin layer screen reflex to HPV if ASCUS - recommend age 25 - 29 (06/23/2021 9:53 AM CDT) Interpretation Negative for Intraepithelial Lesion or Malignancy (NILM) 06/27/2021 12:39 PM CDT [facility] Specimen Adequacy Satisfactory for evaluation, endocervical/vaz sformation zone component absent 06/27/2021 12:39 PM CDT [facility] Clinical Information 06/27/2021 12:39 PM CDT [facility] LMP/Menopause Date 03/09/2021 06/27/2021 12:39 PM CDT [facility] Reflex Testing Yes if ASCUS 06/27/20 12:39 PM CDT [facility] Previous Abnormal? No 06/27/2021 12:39 PM CDT [facility] Performing Labs The technical component of this testing was completed at [facility] 06/27/2021 12:39 PM CDT [facility] Brushing CERVIX UTERI STRUCTURE / Unknown 06/23/2021 9:53 AM CDT 06/23/2021 10:44 AM CDT Comment:Pap imaged thin laye r screen reflex to HPV if ASCUS - recommend age 25 - 29Answer REQUIRED pap questions below:LMP (date): Patient's last menstrual period was 03/09/2021 (exact date).PAP SOURCE: Cervical - EndocervicalPREVIOUS PAP RESULTS: No results found for: PAPPERTINENT CLINICAL HISTORY: Davidchinyere Paul [facility] - [facility] [address] [place] [address], [facility] [phone] from Last 3 Months or Most Recently Relevant to Health Maintenance Care Teams Investigator Internal Revenue Relationship Specialty Start Date End Date No Ref-Primary, Physician PCP - General 09/19/19 Paulino Barker MD [address] [address] Assigned PCP 08/25/21
--- OUTSIDE RECORDS SUMMARY | 2024-06-06 12:11 | XMS_ITS | Encounter Summary ---
Author Organization [place] Address [address] [place] [address] Care Team Providers Care Blown Film Extrusion Operator Name Role Phone No Ref-Primary, Physician Primary Care Provider Paulino Barker MD Unavailable [phone] Reason for Referral * Consultation (Routine: Next available opening) - Pending Review Specialty Diagnoses / Procedures Referred By Contac t Referred To Contact Diagnoses Twin Elizabeth Yo MD [address] [place] [address] Referral ID Status Reason Start Date Expiration Date V isits Requested Visits Authorized [id number] Pending Review 03/19/2024 03/19/2025 1 1 Question Answer MFM Consult Yes Comments MFM radiologic consult, declined GC/screening * Diagnostic Imaging Ultrasound (Routine) - Pending Review Specialty Diagnoses / Procedures Referred By Ara jett Referred To Contact Radiology. Diagnoses Twin Procedures MFM Twins Nuchal Trans w/US Elizabeth Yo MD [address] [place] [address] Referral ID Status Reason Start Date Expiration Date V isits Requested Visits Authorized [id number] Pending Review 03/19/2024 03/19/2025 1 1 Encounter Details Date Type Department Care Team (Late st Contact Info) Description 03/19/2024 [facility] Only [facility] [place] [address] [place] [address] Magnolia Moreno RN Twin (Primary Dx) Social History Tobacco Use Types [...] as of this encounter Plan of Treatment Scheduled Referrals Name Type Priority Associated Diagnoses Orde r Schedule [facility] Office Visit Referral Routine: Next available opening Twin Expected: 04/09/2024 (Approximate), Expires: 03/19/2025 documented as of this encounter Results * [facility] Twins Nuchal Trans w/US (04/22/2024 11:55 AM [...] 2:08 PM CDT ?NT ----- Pat. Name: AMARIS CRANE ? Study Date: ??04/22/2024 11:02am Pat. NO: ??[id number] ?Referring ??MD: DECEMBER JUDI Site: ? Real Estate Agency Licensee: Giana Tatum RDMS : ??1990 ?Age: ?? [...] twin gestation. She was scheduled for an [facility] consult for twin chorionicity - a di-di [...] survey. She will continue OB care in [place]. She will also need serial growth US as well as BPPs at 36 weeks. I assume that some of this surveillance will be done locally. I did schedule her anatomic survey here with [facility]. anomalies may be present but not detected I spent a total of 30 minutes on the date of this encounter including preparing to see the patient (reviewing medical records/tests), counseling and discussing the plan of care, documenting the visit in the electronic medical record, and communicating with other health care rep and/or care coordination. Procedure Note Pace, Cresta Wedel, MD - 04/22/2024 NT ----- Pat. Name: AMARIS CRANE Study Date: 04/22/2024 11:02am Pat. NO: [id number] Referring MD: BRAD LAU Site: Real Estate Agency Licensee: Giana Tatum RDMS : 1990 Age: 33 [...] twin gestation. She was scheduled for an [facility] consult for twin chorionicity - a di-di twinpregnancy was identified today. She is a 33 year old with two prior term vaginal deliveries: 2019 41 weeks, 7 pound male infant, gestational hypertension 2022 40 weeks, 7 pound female , no [...] anatomic survey. Lyla continue OB care in [place]. She will also need serial growth US as well as BPPs at 36 weeks. I assumethat some of this surveillance will be done locally. I did schedule heranatomic survey here with [facility]. anomalies may be present but not detected I spent a total of 30 minutes on the date of this encounter includingpreparing to see the patient (reviewing medical records/tests), counselingand discussing the plan of care, documenting the visit in the electronic medical record, andcommunicating with other health care rep and/or carecoordination. IMPRESSION ----- 1. Dichorionic diamniotic [...] for early gestational age. Elizabeth Yo MD [facility] documented in this encounter Visit Diagnoses Diagnosis Twin - Primary Twin , unspecified as to episode of care Twin Twin , unspecified as to episode of care documented in this encounter Additional Health Concerns Assessment Noted Time PHQ-9 Depression Total Score: 3 09/19/19 20 10:37 AM TECHNICAL STAFF ENGINEER documented as of this encounter Care Teams Blown Film Extrusion Operator Relationship Specialty Start Date End Date No Ref-Primary, Physician PCP - General 09/19/19 [place] [address] [place] [address] Assigned PCP 08/25/21 documented as of this encounter
--- OUTSIDE RECORDS SUMMARY | 2024-06-06 12:11 | XMS_ITS | Encounter Summary ---
Author Organization [place] Address [address] [place] [address] Care Team Providers Care Senior Pricing Analyst Name Role Phone No Ref-Primary, Physician Primary Care Provider Comfort Louise MD Unavailable [phone] Gretta Resendez MD Unavailable [phone] Paulino Barker MD Unavailable [phone] Chuckie Perry MD Unavailable [phone] Encounter Details Date Type Department Care Team (Late st Contact Info) Description 07/22/2021 MyC Medical Advice [facility] Women's [address] [place] [address] Gretta Resendez MD [address] [place], [place] [address] Social History Tobacco Use Types Packs/Day Years [...] COVID-19? No / Unsure 07/25/2021 9:32 AM AUTOMOBILE MECHANIC HELPER documented as of this encounter Plan of Treatment Not on file documented as of this encounter Visit Diagnoses Not on filedocumented in this encounter Additional Health Concerns Assessment Noted Time PHQ-9 Depression Total Score: 3 09/19/19 20 10:37 AM AUTOMOBILE MECHANIC HELPER documented as of this encounter Care Teams Senior Pricing Analyst Relationship Specialty Start Date End Date No Ref-Primary, Physician PCP - General 09/19/19 Comfort Louise MD [address] [place] [address] Assigned OBGYN Provider 06/26/21 Gretta Resendez MD [address] [place] [address] Assigned OBGYN Provider 07/24/21 3 Paulino Barker MD [address] [address] Assigned PCP 08/25/21 Chuckie Perry MD [address] [place] [address] Assigned OBGYN Provider 01/20/23 documented as of this encounter
--- OUTSIDE RECORDS SUMMARY | 2024-06-06 12:11 | XMS_ITS | Encounter Summary ---
Author Organization [place] Address [address] [place] [address]. [place] [address] Care Team Providers Care Electrician Outside Name Role Phone No Ref-Primary, Physician Primary Care Provider Paulino Barker MD Unavailable [phone] Encounter Details Date Type Department Care Team (Late st Contact Info) Description 03/18/2024 Medical Correspondence [facility] Info Mgmt Srs [address] [place] [phone] Scan, Non-Provider Social History Tobacco Use Types Packs/Day Years [...] Total Score: 3 09/19/19 20 10:37 AM SENIOR TELECOMMUNICATIONS CONSULTANT documented as of this encounter Care Teams Electrician Outside Relationship Specialty Start Date End Date No Ref-Primary, Physician PCP - General 09/19/19 Paulino Barker MD [address] [address] Assigned PCP 08/25/21 documented as of this encounter
--- OUTSIDE RECORDS SUMMARY | 2024-06-06 12:11 | XMS_ITS | Encounter Summary ---
Author Organization [place] Address [address] [place] [address] Care Team Providers Care Quality Assurance Monitor Name Role Phone No Ref-Primary, Physician Primary Care Provider Paulino Barker MD Unavailable [phone] Reason for Visit * Reason Comments Ultrasound NT- Twin Chorionicit y Consult Twin Chorionicity Encounter Details Date Type Department Care Team (Late st Contact Info) Description 04/15/2024 PRE VISIT [facility] [place] [address] [facility] [address] [place] [address] Armida Shea RN Ultrasound (NT- Twin Chorionicity ); Consult (Twin Chorionicity ) Social History Tobacco Use Types Packs/Day Years [...] Total Score: 3 09/19/19 20 10:37 AM PHYSICIAN CHIEF OF PATHOLOGY documented as of this encounter Care Teams Quality Assurance Monitor Relationship Specialty Start Date End Date No Ref-Primary, Physician PCP - General 09/19/19 Paulino Barker MD [address] [address] Assigned PCP 08/25/21 documented as of this encounter
--- OUTSIDE RECORDS SUMMARY | 2024-06-06 12:11 | XMS_ITS | Encounter Summary ---
Author Organization [place] Address [address] [place] [address] Care Team Providers Care Nailhead Setter Name Role Phone No Ref-Primary, Physician Primary Care Provider Paulino Barker MD Unavailable [phone] Reason for Referral * Diagnostic Imaging Ultrasound (Routine) - Pending Review Specialty Diagnoses / Procedures Referred By Ara t Referred To Contact Radiology. Diagnoses Dichorionic diamniotic twin in first trimester Procedures MFM Twins US Comprehensive Josue Pace MD [address] [place] [address] Referral ID Status Reason Start Date Expiration Date V isits Requested Visits Authorized [id number] Pending Review 04/22/2024 04/22/2025 1 1 Reason for Visit * Reason Comments Ultrasound NT- Twin Chorionicit y check Consult Twin Chorionicity * Consultation (Routine: Next available opening) - Pending Review Specialty Diagnoses / Procedures Referred By Ara jett Referred To Contact Diagnoses Twin Elizabeth Yo MD [address] [place] [address] Referral ID Status Reason Start Date Expiration Date V isits Requested Visits Authorized [id number] Pending Review 03/19/2024 03/19/2025 1 1 Encounter Details Date Type Department Care Team (Late st Contact Info) Description 04/22/2024 11:45 AM CDT Office Visit [facility] [place] [address] [place] [address] Elizabeth Yo MD [address] [place] [address] Josue Pace MD [address] [place] [address] Dichorionic diamniotic twin in first trimester (Primary Dx); Twin , antepartum, unspecified multiple gestation type Social History Tobacco Use Types Packs/Day Years [...] AM CDT documented as of this encounter Progress Notes * Josue Pace MD - 04/22/2024 11:45 AM CDT Please see full imaging report from ViewPoint program under imaging tab. Thank-you for referring your patient for a nuchal translucency ultrasound for twin gestation. She was scheduled for an M consult for twin chorionicity - a di-di [...] pregnancies. Specifically we reviewed the maternal and fetalrisks including an increased risk of and subsequent [...] anatomic survey. She will continue OB care [facility]. She will also need serial growth US as well as BPPs at 36 weeks. I assume that some of this surveillance will be done locally. I did schedule her anatomic survey here with [facility]. anomalies may be present but not detected I spent a total of 30 minutes on the date of this encounter including preparing to see the patient (reviewing medical records/tests), counseling and discussing the plan of care, documenting the visitin the electronic medical record, and communicating with other health day care center director and/or care coordination. Josue Pace MD Maternal Medicine documented in this encounter Plan of Treatment Not on file documented as of this encounter Results * [facility] Twins US Comprehensive (05/27/2024 10:48 AM CDT) [...] 11:16 AM CDT ?Comprehensive ----- Pat. Name: AMARIS CRANE ? Study Date: ??05/27/2024 9:22am Pat. NO: ??[id number] ?Referring ??MD: DECEMBER JUDI Site: ? Bench Molder: Ramin Gillette RDMS : ??1990 ?Age: ?? [...] ? 43.0 ?mm ? 19w 0d ?Wojciech CANDELARIOD ? 56.6 ?mm ? 18w 5d ?Nicolaides [...] ?0 lb 9 ?oz EFW by ?Hadlock ([id number]) EFW discordance ?4.9 ? % Head / Face / Neck Biometry: Restaurant Cashier ?5.5 ? mm CM ? 4.1 ? [...] lb 10 ? oz EFW by ?Hadlock ([id number]-[id number]) EFW discordance ?4.9 ? % Head / Face / Neck Biometry: Restaurant Cashier ?7.1 ? mm CM ? 2.6 ? [...] view. RVOT view. LVOT view. 3-vessel view. 2-ydwtwk-ydpvrmw view. Situs. Aortic arch view. Bicaval view. [...] view. RVOT view. LVOT view. 3-vessel view. 3-zrfoqt-tlntgkz view. Situs. Aortic arch view. Bicaval view. [...] . She had a previous consultation with [facility] on 04/22/24. I discussed the findings on today's ultrasound with the patient. I reviewed the limitations of ultrasound both in detecting aneuploidy and structural abnormalities. Ultrasound can routinely detect 80-90% of structural abnormalities. She opted not to do aneuploidy screening or testing. Serial ultrasounds for growth every 4 weeks are recommended, and these can be done through radiology in [place]. If complications or US abnormalities arise, she should be re-referred to [facility] for follow up. BPP weekly at 36 weeks also recommended. Return to primary provider for continued care. If you have questions regarding today's evaluation or if we can be of further service, please contact the Maternal[facility] Medicine Center. anomalies may be present but not detected Procedure Note Josue Pace MD - 05/27/2024 Comprehensive ----- Pat. Name: AMARIS CRANE Study Date: 05/27/2024 9:22am Pat. NO: [id number] Referring MD: BRAD LAU Site: Bench Molder: Ramin Gillette RDMS : 1990 Age: 33 [...] EFW (lb,oz) 0 lb 9oz EFW by Hadlock(IWP-[id number]-FL) EFW discordance 4.9% Head / Face / Neck Biometry: Restaurant Cashier 5.5mm CM 4.1mm Nasal bone 5.7mm Fetus 2: BIOMETRY ----- BPD 45.8mm 19w 6dHadlock OFD 57.5mm 18w 6dNicolaides HC 165.9mm 19w 2dHadlock Cerebellum tr 18.7mm 18w 2dNicolaides Nuchal fold 3.2mm AC 144.5mm 19w 5d 80%Hadlock Femur 27.6mm 18w 3dHadlock Humerus 27.9mm 19w 0dJeanty Weight Calculation: EFW 279g 72%Hadlock EFW (lb,oz) 0 lb 10oz EFW by Hadlock(OYU-ZO-AD-FL) EFW discordance 4.9% Head / Face / Neck Biometry: Restaurant Cashier 7.1mm CM 2.6mm Nasal bone 5.9mm Fetus 1: ANATOMY ----- The following structures appear normal: Head / Neck Cranium. Head size. Head shape.Lateral ventricles. Choroid plexus. Midline falx. Cavum septi pellucidi.Cerebellum. Cisterna magna. Parenchyma. Thalami. Vermis. Neck. Nuchal fold. Face Lips. Profile. Nose. Maxilla.Mandible. Orbits. Lens. Heart / Thorax 4-chamber view. RVOT view. LVOT view.3-vessel view. 6-yaoxoq-mqfakmb view. Situs. Aortic arch view. Bicavalview. Ductal [...] 4-chamber view. RVOT view. LVOT view.3-vessel view. 8-xjvhbj-mrgmapi view. Situs. Aortic arch view. Bicavalview. Ductal [...] . She had a previous consultation with [facility] on 04/22/24. I discussed the findings on today's ultrasound with the patient. Ireviewed the limitations of ultrasound both in detecting aneuploidy andstructural abnormalities. Ultrasound can routinely detect 80-90% of structural abnormalities. She opted not todo aneuploidy screening or testing. Serial ultrasounds for growth every 4 weeks are recommended, andthese can be done through radiology in [place]. If complications or USabnormalities arise, she should be re-referred to [facility] for follow up. BPP weekly at 36 [...] appears long and closed. Josue Pace MD G [facility] US ORDERAB LES documented in this encounter Visit Diagnoses Diagnosis Dichorionic diamniotic twin in first trimester- Primary Twin , antepartum Twin , antepartum, unspecified multiple gestation type Dichorionic diamniotic twin in first trimester Twin , antepartum documented in this encounter Additional Health Concerns Assessment Noted Time PHQ-9 Depression Total Score: 3 09/19/19 20 10:37 AM TRAFFIC WAREHOUSE SUPERVISOR documented as of this encounter Care Teams Nailhead Setter Relationship Specialty Start Date End Date No Ref-Primary, Physician PCP - General 09/19/19 Paulino Barker MD [address] [address] Assigned PCP 08/25/21 documented as of this encounter
--- OUTSIDE RECORDS SUMMARY | 2024-06-06 12:11 | XMS_ITS | Encounter Summary ---
Author Organization [facility] Address [address] [place] [address] Care Team Providers Care Die Cast Operator Name Role Phone No Ref-Primary, Physician Primary Care Provider Paulino Barker MD Unavailable [phone] Reason for Referral * Diagnostic Imaging Ultrasound (Routine) - Pending Review Specialty Diagnoses / Procedures Referred By Contac t Referred To Contact Radiology. Diagnoses Dichorionic diamniotic twin in first trimester Procedures MFM Twins US Josue Miranda MD [address] [place] [address] Referral ID Status Reason Start Date Expiration Date V isits Requested Visits Authorized [id number] Pending Review 04/22/2024 04/22/2025 1 1 Reason for Visit * Diagnostic Imaging Ultrasound (Routine) - Pending Review Specialty Diagnoses / Procedures Referred By Contac t Referred To Contact Radiology. Diagnoses Dichorionic diamniotic twin in first trimester Procedures MFM Twins US Josue Miranda MD [address] [place] [address] Referral ID Status Reason Start Date Expiration Date V isits Requested Visits Authorized [id number] Pending Review 04/22/2024 04/22/2025 1 1 Encounter Details Date Type Department Care Team (Latest Contact Info) Description 05/27/2024 9:10 AM CDT - 05/27/2024 11:59 PM CDT Hospital Encounter [facility] [place] [address] [facility] [address] [place] [address] Josue Pace MD [address] [place] [address] Dichorionic diamniotic twin in first trimester Discharge Disposition: Home or Self Care Social History Tobacco Use Types Packs/Day Years [...] AM CDT documented as of this encounter Medications at Time of Discharge Medication Sig Dispensed Refills Start Date End Date aspirin (ASA) 81 MG chewable tablet Take 81 mg by mouth daily docusate sodium (COLACE) 100 MG tablet Take 100 mg by mouth daily Vit-Fe Fumarate-FA ( MULTIVITAMIN W/IRON) 27-0.8 MG tablet Take 1 tablet by mouth daily documented as of this encounter Plan of Treatment Not on file documented as of this encounter Procedures Procedure Name Priority Date/Time Associated Diagnosis Comments MFM TWINS COMPREHENSIVE Routine 05/27/2024 10:48 AM CDT Dichorionic diamniotic twin in first trimester documented in this encounter Results * MFM Twins US Comprehensive (05/27/2024 [...] ? Study Date: ??05/27/2024 9:22am Pat. NO: ??[id number] ?Referring ??: BRAD LAU Site: ? Plant Associate: Ramin Gillette RDMS : ??1990 ?Age: ?? [...] BPD ? 43.0 ?mm ? 19w 0d ?Hadlock OFD ? 56.6 ?mm ? 18w 5d ?Nicolaides [...] ?0 lb 9 ?oz EFW by ?Hadlock (ATW-HQ-KT-FL) EFW discordance ?4.9 ? % Head / Face / Neck Biometry: Lead Vulcanizing Operator ?5.5 ? mm CM ? 4.1 ? [...] lb 10 ? oz EFW by ?Hadlock (UWX-LT-DT-FL) EFW discordance ?4.9 ? % Head / Face / Neck Biometry: Lead Vulcanizing Operator ?7.1 ? mm CM ? 2.6 ? [...] view. RVOT view. LVOT view. 3-vessel view. 5-tzaavl-zhbkzyc view. Situs. Aortic arch view. Bicaval view. [...] view. RVOT view. LVOT view. 3-vessel view. 6-xyhasb-vlmygsf view. Situs. Aortic arch view. Bicaval view. [...] . She had a previous consultation with [facility] on 04/22/24. I discussed the findings on today's ultrasound with the patient. I reviewed the limitations of ultrasound both in detecting aneuploidy and structural abnormalities. Ultrasound can routinely detect 80-90% of structural abnormalities. She opted not to do aneuploidy screening or testing. Serial ultrasounds for growth every 4 weeks are recommended, and these can be done through radiology in [place]. If complications or US abnormalities arise, she should be re-referred to [facility] for follow up. BPP weekly at [...] CRANE Study Date: 05/27/2024 9:22am Pat. NO: [id number] Referring MD: BRAD LAU Site: Plant Associate: Ramin Gillette RDMS : 1990 Age: 33 [...] EFW (lb,oz) 0 lb 9oz EFW by Hadlock(IQI-DO-SZ-FL) EFW discordance 4.9% Head / Face / Neck Biometry: Lead Vulcanizing Operator 5.5mm CM 4.1mm Nasal bone 5.7mm Fetus 2: BIOMETRY ----- BPD 45.8mm 19w 6dHadlock OFD 57.5mm 18w 6dNicolaides HC 165.9mm 19w 2dHadlock Cerebellum tr 18.7mm 18w 2dNicolaides Nuchal fold 3.2mm AC 144.5mm 19w 5d 80%Hadlock Femur 27.6mm 18w 3dHadlock Humerus 27.9mm 19w 0dJeanty Weight Calculation: EFW 279g 72%Hadlock EFW (lb,oz) 0 lb 10oz EFW by Hadlock(SWD-RS-PM-FL) EFW discordance 4.9% Head / Face / Neck Biometry: Lead Vulcanizing Operator 7.1mm CM 2.6mm Nasal bone 5.9mm Fetus 1: ANATOMY ----- The following structures appear normal: Head / Neck Cranium. Head size. Head shape.Lateral ventricles. Choroid plexus. Midline falx. Cavum septi pellucidi.Cerebellum. Cisterna magna. Parenchyma. Thalami. Vermis. Neck. Nuchal fold. Face Lips. Profile. Nose. Maxilla.Mandible. Orbits. Lens. Heart / Thorax 4-chamber view. RVOT view. LVOT view.3-vessel view. 6-blzlid-ltolbnp view. Situs. Aortic arch view. Bicavalview. Ductal [...] 4-chamber view. RVOT view. LVOT view.3-vessel view. 6-lmjfcs-nleafpi view. Situs. Aortic arch view. Bicavalview. Ductal [...] . She had a previous consultation with [facility] on 04/22/24. I discussed the findings on today's ultrasound with the patient. Ireviewed the limitations of ultrasound both in detecting aneuploidy andstructural abnormalities. Ultrasound can routinely detect 80-90% of structural abnormalities. She opted not todo aneuploidy screening or testing. Serial ultrasounds for growth every 4 weeks are recommended, andthese can be done through radiology in [place]. If complications or USabnormalities arise, she should be re-referred to [facility] for follow up. BPP weekly at [...] long and closed. Josue Pace MD IMG MFM US ORDERAB LES documented in this encounter Visit Diagnoses Diagnosis Dichorionic diamniotic twin in first trimester Twin , antepartum documented in this encounter Additional Health Concerns Assessment Noted Time PHQ-9 Depression Total Score: 3 09/19/19 20 10:37 AM COFFEE MACHINE TECHNICIAN documented as of this encounter Care Teams Die Cast Operator Relationship Specialty Start Date End Date No Ref-Primary, Physician PCP - General 09/19/19 Paulino Barker MD [address] [address] Assigned PCP 08/25/21 documented as of this encounter
--- OUTSIDE RECORDS SUMMARY | 2024-06-06 12:11 | XMS_ITS | Encounter Summary ---
Author Organization [facility] Address [address] [place] [address] Care Team Providers Care Digital Sales Director Name Role Phone No Ref-Primary, Physician Primary Care Provider Paulino Barker MD Unavailable [phone] Reason for Referral * Diagnostic Imaging Ultrasound (Routine) - Pending Review Specialty Diagnoses / Procedures Referred By Contac t Referred To Contact Radiology. Diagnoses Twin Procedures MFM Twins Nuchal Trans w/US Elizabeth Yo MD [address] [place] [address] Referral ID Status Reason Start Date Expiration Date V isits Requested Visits Authorized [id number] Pending Review 03/19/2024 03/19/2025 1 1 Reason for Visit * Diagnostic Imaging Ultrasound (Routine) - Pending Review Specialty Diagnoses / Procedures Referred By Contac t Referred To Contact Radiology. Diagnoses Twin Procedures MFM Twins Nuchal Trans w/US Elizabeth Yo MD [address] [place] [address] Referral ID Status Reason Start Date Expiration Date V isits Requested Visits Authorized [id number] Pending Review 03/19/2024 03/19/2025 1 1 Encounter Details Date Type Department Care Team (Latest Contact Info) Description 04/22/2024 10:59 AM CDT - 04/22/2024 11:59 PM CDT Hospital Encounter [facility] [place] [address] [place] [address] Elizabeth Yo MD [address] [place] [address] Josue Pace MD [address] [place] [address] Twin Discharge Disposition: Home or Self Care Social [...] Priority Date/Time Associated Diagnosis Comments MFM TWINS NUCHAL TRANSLUCENCY W US Routine 04/22/2024 11:55 AM CDT Twin documented in this encounter Results * MFM Twins Nuchal Trans w/US (04/22/2024 11:55 AM [...] ? Study Date: ??04/22/2024 11:02am Pat. NO: ??[id number] ?Referring ??: BRAD LAU Site: ? Rug Shampooer: Giana Tatum RDMS : ??1990 ?Age: ?? [...] twin gestation. She was scheduled for an [facility] consult for twin chorionicity - a di-di [...] survey. She will continue OB care in [place]. She will also need serial growth US as well as BPPs at 36 weeks. I assume that some of this surveillance will be done locally. I did schedule her anatomic survey here with [facility]. anomalies may be present but not detected I spent a total of 30 minutes on the date of this encounter including preparing to see the patient (reviewing medical records/tests), counseling and discussing the plan of care, documenting the visit in the electronic medical record, and communicating with other health healthcare consultant and/or care coordination. Procedure Note Josue Pace MD - 04/22/2024 NT ----- Pat. Name: AMARIS CRANE Study Date: 04/22/2024 11:02am Pat. NO: [id number] Referring MD: BRAD LAU Site: Rug Shampooer: Giana Tatum RDMS : 1990 Age: 33 [...] twin gestation. She was scheduled for an [facility] consult for twin chorionicity - a di-di [...] anatomic survey. Lyla continue OB care in [place]. She will also need serial growth US as well as BPPs at 36 weeks. I assumethat some of this surveillance will be done locally. I did schedule heranatomic survey here with [facility]. anomalies may be present but not detected I spent a total of 30 minutes on the date of this encounter includingpreparing to see the patient (reviewing medical records/tests), counselingand discussing the plan of care, documenting the visit in the electronic medical record, andcommunicating with other health healthcare consultant and/or carecoordination. IMPRESSION ----- 1. Dichorionic diamniotic [...] for early gestational age. Elizabeth Yo MD [facility] US ORDERABLE S documented in this encounter Visit Diagnoses Diagnosis Twin Twin , unspecified as to episode of care documented in this encounter Additional Health Concerns Assessment Noted Time PHQ-9 Depression Total Score: 3 09/19/19 20 10:37 AM INTERRELATED SPECIAL EDUCATION TEACHER documented as of this encounter Care Teams Digital Sales Director Relationship Specialty Start Date End Date No Ref-Primary, Physician PCP - General 09/19/19 [place] [address] [place] [address] Assigned PCP 08/25/21 documented as of this encounter
--- OUTSIDE RECORDS SUMMARY | 2024-06-06 12:11 | XMS_ITS | Encounter Summary ---
Author Organization [facility] Address [facility] [place] [address] Care Team Providers Care Custom Shop Worker Name Role Phone No Ref-Primary, Physician Primary Care Provider Paulino Barker MD Unavailable [phone] Reason for Referral * Consultation (Routine: Next available opening) - Pending Review Specialty Diagnoses / Procedures Referred By Contbal t Referred To Contact Diagnoses related condition, antepartum [facility], [facility], December [facility] [address] [place] [address] [address] Med [address] [place] [address] Referral ID Status Reason Start Date Expiration Date V isits Requested Visits Authorized [id number] Pending Review 03/18/2024 03/18/2025 1 1 Question Answer Preferred Location: [facility] [place] 10/23/2024 Ultrasound NONE US PROC NONE MFM Issue OTHER (enter details in Comments) - twin , confirm Chorionicity JEWEL BUCKNER Consultation (unrelated to Ultrasound findings): Yes Inflammatory Bowel Disease Clinic: Joint MFM and GI Consultation: No Chronic Kidney Disease: Joint MFM and Nephrology Consultation No Genetic Counseling Consultation: No fax December [facility], Comments There is no height or weight on file to calculate BMI. >> Patient may proceed with recommendations for further testing as directed by the Maternal Medicine Specialist >> >> If requesting Echo: MFM will determine appropriate location for exam due to indication. Please be aware that coverage of these services is subject to the terms and limitations of your health insurance plan. Call member services at your health plan with any benefit or coverage questions. Encounter Details Date Type Department Care Team (Latest Contact Info) Description 03/18/2024 Transcribe Orders [facility] Maternal Medicine Center [address] [address] Leatha Wallace [facility] [address] [place] [address] related condition, antepartum (Primary Dx) Social History Tobacco Use Types [...] Type Priority Associated Diagnoses Orde r Schedule [facility] Med Ctr Referral - Referral Routine: Next available opening related condition, antepartum Expected: 03/18/2024 (Approximate), Expires: 09/14/2024 documented as of this encounter Visit Diagnoses Diagnosis related condition, antepartum- Primary documented in this encounter Additional Health Concerns Assessment Noted Time PHQ-9 Depression Total Score: 3 09/19/19 20 10:37 AM NEWS ANALYST documented as of this encounter Care Teams Custom Shop Worker Relationship Specialty Start Date End Date No Ref-Primary, Physician PCP - General 09/19/19 Paulino Barker MD [address] [address] Assigned PCP 08/25/21 documented as of this encounter
--- OUTSIDE RECORDS SUMMARY | 2024-06-06 12:11 | XMS_ITS | Encounter Summary ---
Author Organization [facility] Address [address] [place] [address] Care Team Providers Care Lease Administrator Name Role Phone No Ref-Primary, Physician Primary Care Provider Gretta Resendez MD Unavailable [phone] Paulino Barker MD Unavailable [phone] Chuckie Perry MD Unavailable Encounter Details Date Type Department Care Team (Late st Contact Info) Description 07/26/2021 MyC Medical Advice [facility] Women's [address] [place] [address] Gretta Resendez MD [address] [place] [address] Social History Tobacco Use Types [...] COVID-19? No / Unsure 07/25/2021 9:32 AM LEAD C DEVELOPER documented as of this encounter Plan of Treatment Not on file documented as of this encounter Visit Diagnoses Not on filedocumented in this encounter Additional Health Concerns Assessment Noted Time PHQ-9 Depression Total Score: 3 09/19/19 20 10:37 AM LEAD C DEVELOPER documented as of this encounter Care Teams Lease Administrator Relationship Specialty Start Date End Date No Ref-Primary, Physician PCP - General 09/19/19 Gretta Resendez MD [address] [place] [address] Assigned OBGYN Provider 07/24/21 3 Paulino Barker MD [address] [address] Assigned PCP 08/25/21 Chuckie Perry MD [address] [place] [address] Assigned OBGYN Provider 01/20/23 documented as of this encounter
--- OUTSIDE RECORDS SUMMARY | 2024-06-06 12:11 | XMS_ITS | Clinical Summary ---
Author Organization [place] Address [address] [place] [address] Care Team Providers Care Sugarcane Planter Name Role Phone No Ref-Primary, Physician Primary [...] 10/23/2024 Based on Ultraso und, Twin B Encounters Date Type Department Care Team Description 05/27/2024 10:45 AM CDT Office Visit [facility] [place] [address] [facility] [address] [place] [address] Josue Pace MD Dichorionic diamniotic twin in second trimester (Primary Dx) 05/27/2024 9:10 AM CDT - 05/27/2024 11:59 PM CDT Hospital Encounter [facility] [address] [place] [address] Josue aPce MD Dichorionic diamniotic twin in first trimester Discharge Disposition: Home or Self Care 05/27/2024 Travel 05/22/2024 Travel 04/22/2024 11:45 AM CDT Office Visit [facility] [place] [address] [place] [address] Elizabeth Yo MD Jones, Cresta Wedel, MD Dichorionic diamniotic twin in first trimester (Primary Dx); Twin , antepartum, unspecified multiple gestation type 04/22/2024 10:59 AM CDT - 04/22/2024 11:59 PM CDT Hospital Encounter [facility] [address] [place] [address] Elizabeth Yo MD Jones, Cresta Wedel, MD Twin Discharge Disposition: Home or Self Care 04/22/2024 Travel 04/17/2024 Travel 04/15/2024 PRE VISIT [facility] [place] [address] [place] [address] Armida Shea RN Ultrasound (NT- Twin Chorionicity ); Consult (Twin Chorionicity ) 03/19/2024 Orders Only [facility] [address] [place] [id number] Magnolia Moreno RN Twin (Primary Dx) 03/18/2024 Medical Correspondence [facility] [address] [place] [phone] Scan, Non-Provider 03/18/2024 Transcribe Orders [facility] [place] [place] [address] Graciadecember related condition, antepartum (Primary Dx) 03/18/2024 Transcribe Orders [facility] [address] [address] Judi December Encounter for preconception consultation (Primary Dx) from Last 3 Months Immunizations Name Administration Dates Next Due DTAP [...] (154 lb 14.4 oz) 09/06/2021 1:15 PM 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 Height 166.4 cm (5' 5.5) 07/21/2021 9:49 AM CDT Body Mass Index 25.38 07/21/2021 9:49 AM CDT Plan of Treatment Health Maintenance Due Date Last Done Comments ADVANCE CARE PLANNING 1990 ANNUAL REVIEW OF HM ORDERS 1990 YEARLY PREVENTIVE VISIT 1990 PHQ-2 (once per calendar year) 2023 06/06/2021, 09/19/2019, 09/19/2019 MATERNAL SCREENING DISCUSSION 03/27/2024 COVID-19 Vaccine ( season) 2024 08/22/2021, 01/19/2021, 12/30/2020 INFLUENZA VACCINE (#1) 2024 , 08/07/2022, 07/21/2021, Additional history exists OBGCT (OB) 07/03/2024 RSV VACCINE (1 - Risk 1-dose series) 08/28/2024 PAP 03/09/2025 03/09/2022, 10/0 03/2021, 01/14/2019, Additional history exists DTAP/TDAP/TD IMMUNIZATION (8 - Td or Tdap) 11/25/2031 11/24/2021, 05/21/2019, 05/01/2003, Additional history exists HEPATITIS B IMMUNIZATION Completed [...] ? Study Date: ??05/27/2024 9:22am Pat. NO: ??[id number] ?Referring ??MD: DECEMBER JUDI Site: ? Oil Tester: Ramin Gillette RDMS : ??1990 ?Age: ?? [...] ? 43.0 ?mm ? 19w 0d ?Wojciech HASSAN ? 56.6 ?mm ? 18w 5d ?Nicolaides [...] ?0 lb 9 ?oz EFW by ?Hadlock (FHN-ZO-EQ-FL) EFW discordance ?4.9 ? % Head / Face / Neck Biometry: Body Recall Instructor ?5.5 ? mm CM ? 4.1 ? [...] lb 10 ? oz EFW by ?Hadlock (ERE-UI-AG-FL) EFW discordance ?4.9 ? % Head / Face / Neck Biometry: Body Recall Instructor ?7.1 ? mm CM ? 2.6 ? [...] view. RVOT view. LVOT view. 3-vessel view. 7-bimqau-tfvdeqq view. Situs. Aortic arch view. Bicaval view. [...] view. RVOT view. LVOT view. 3-vessel view. 4-kcrwwc-fucvrhp view. Situs. Aortic arch view. Bicaval view. [...] . She had a previous consultation with [facility] on 04/22/24. I discussed the findings on today's ultrasound with the patient. I reviewed the limitations of ultrasound both in detecting aneuploidy and structural abnormalities. Ultrasound can routinely detect 80-90% of structural abnormalities. She opted not to do aneuploidy screening or testing. Serial ultrasounds for growth every 4 weeks are recommended, and these can be done through radiology in [place]. If complications or US abnormalities arise, she should be re-referred to [facility] for follow up. BPP weekly at [...] CRANE Study Date: 05/27/2024 9:22am Pat. NO: [id number] Referring MD: BRAD LAU Site: Oil Tester: Ramin Gillette RDMS : 1990 Age: 33 [...] EFW (lb,oz) 0 lb 9oz EFW by Hadlock(GPO-DG-QF-FL) EFW discordance 4.9% Head / Face / Neck Biometry: Body Recall Instructor 5.5mm CM 4.1mm Nasal bone 5.7mm Fetus 2: BIOMETRY ----- BPD 45.8mm 19w 6dHadlock OFD 57.5mm 18w 6dNicolaides HC 165.9mm 19w 2dHadlock Cerebellum tr 18.7mm 18w 2dNicolaides Nuchal fold 3.2mm AC 144.5mm 19w 5d 80%Hadlock Femur 27.6mm 18w 3dHadlock Humerus 27.9mm 19w 0dJeanty Weight Calculation: EFW 279g 72%Hadlock EFW (lb,oz) 0 lb 10oz EFW by Hadlock(REK-PB-OX-FL) EFW discordance 4.9% Head / Face / Neck Biometry: Body Recall Instructor 7.1mm CM 2.6mm Nasal bone 5.9mm Fetus 1: ANATOMY ----- The following structures appear normal: Head / Neck Cranium. Head size. Head shape.Lateral ventricles. Choroid plexus. Midline falx. Cavum septi pellucidi.Cerebellum. Cisterna magna. Parenchyma. Thalami. Vermis. Neck. Nuchal fold. Face Lips. Profile. Nose. Maxilla.Mandible. Orbits. Lens. Heart / Thorax 4-chamber view. RVOT view. LVOT view.3-vessel view. 5-tqvdhf-oofclkg view. Situs. Aortic arch view. Bicavalview. Ductal [...] 4-chamber view. RVOT view. LVOT view.3-vessel view. 1-akwria-iilgvgy view. Situs. Aortic arch view. Bicavalview. Ductal [...] . She had a previous consultation with [facility] on 04/22/24. I discussed the findings on today's ultrasound with the patient. Ireviewed the limitations of ultrasound both in detecting aneuploidy andstructural abnormalities. Ultrasound can routinely detect 80-90% of structural abnormalities. She opted not todo aneuploidy screening or testing. Serial ultrasounds for growth every 4 weeks are recommended, andthese can be done through radiology in [place]. If complications or USabnormalities arise, she should be re-referred to [facility] for follow up. BPP weekly at [...] long and closed. Josue Pace MD G [facility] US ORDERAB LES * [facility] Twins Nuchal Trans w/US (04/22/2024 11:55 [...] ? Study Date: ??04/22/2024 11:02am Pat. NO: ??[id number] ?Referring ??: BRAD LAU Site: ? Oil Tester: Giana Tatum RDMS : ??1990 ?Age: ?? [...] twin gestation. She was scheduled for an [facility] consult for twin chorionicity - a [...] survey. She will continue OB care in [place]. She will also need serial growth US as well as BPPs at 36 weeks. I assume that some of this surveillance will be done locally. I did schedule her anatomic survey here with [facility]. anomalies may be present but not detected I spent a total of 30 minutes on the date of this encounter including preparing to see the patient (reviewing medical records/tests), counseling and discussing the plan of care, documenting the visit in the electronic medical record, and communicating with other health family day carer and/or care coordination. Procedure Note Josue Pace MD - 04/22/2024 NT ----- Pat. Name: WALTER CRANE Study Date: 04/22/2024 11:02am Pat. NO: [id number] Referring MD: BRAD LAU Site: Oil Tester: Giana Tatum RDMS : 1990 Age: 33 [...] Assigned dating based on ultrasound ([place]), selected w + 5 d 10/23/2024 Fetus 1: [...] twin gestation. She was scheduled for an [facility] consult for twin chorionicity - a [...] anatomic survey. Lyla continue OB care in [place]. She will also need serial growth US as well as BPPs at 36 weeks. I assumethat some of this surveillance will be done locally. I did schedule heranatomic survey here with [facility]. anomalies may be present but not detected I spent a total of 30 minutes on the date of this encounter includingpreparing to see the patient (reviewing medical records/tests), counselingand discussing the plan of care, documenting the visit in the electronic medical record, andcommunicating with other health family day carer and/or carecoordination. IMPRESSION ----- 1. Dichorionic diamniotic [...] for early gestational age. Elizabeth Yo MD [facility] ORDERABLE S * HIV Antigen Antibody Combo (06/23/2021 10:29 AM CDT) HIV Antigen Antibody Combo Nonreactive Nonreactive 06/23/2021 9:18 PM CDT [facility] Comment:HIV-1 p24 Ag & HIV-1 /HIV-2 Ab Not Detected Blood BLOOD SPECIMEN / Unknown Venipuncture / Unknown 06/23/2021 10:29 AM CDT 06/23/2021 10:30 AM CDT Comfort Louise MD LAB - BLOOD ORDERABLES [facility] Special[facility] Core Lab [address] [facility] [place] [address], [facility] [phone] * Hepatitis C antibody (06/23/2021 10:29 AM CDT) Hepatitis C Antibody Nonreactive Nonreactive 06/23/2021 9:18 PM CDT [facility] Blood BLOOD SPECIMEN / Unknown Venipuncture / Unknown 06/23/2021 10:29 AM CDT 06/23/2021 10:[address] [facility] - 06/23/2021 9:18 PM CDT Assay performance characteristics have not been established for newborns, infants, and children. Comfort Louise MD LAB - BLOOD ORDERABLES [facility] CORE [facility] Specialty Core Lab [address] [facility], [id number] [address], [facility] [phone] * Pap imaged thin layer screen reflex to HPV if ASCUS - recommend age 25 - 29 (06/23/2021 9:53 AM CDT) Interpretation Negative for Intraepithelial Lesion or Malignancy (NILM) 06/27/2021 12:39 PM CDT [facility] Specimen Adequacy Satisfactory for evaluation, endocervical/vaz sformation zone component absent 06/27/2021 12:39 PM CDT [facility] Clinical Information 06/27/2021 12:39 PM CDT [facility] LMP/Menopause Date 03/09/2021 06/27/2021 12:39 PM CDT [facility] Reflex Testing Yes if ASCUS 06/27/20 12:39 PM CDT [facility] Previous Abnormal? No 06/27/2021 12:39 PM CDT [facility] Performing Labs The technical component of this testing was completed at [facility] 06/27/2021 12:39 PM CDT [facility] [...] No results found for: PAPPERTINENT CLINICAL HISTORY: Ischinyere GONZALEZ AP [facility] [address] [place] [address], [facility] [phone] from Last 3 Months or Most Recently Relevant to Health Maintenance Care Teams Sugarcane Planter Relationship Specialty Start Date End Date No Ref-Primary, Physician PCP - General 09/19/19 Paulino Barker MD [address] [address] Assigned PCP 08/25/21
--- OUTSIDE RECORDS SUMMARY | 2024-06-06 12:11 | XMS_ITS | Encounter Summary ---
Author Organization [place] Address [facility] [place] [address] Care Team Providers Care Vascular Ultrasound Technologist Name Role Phone No Ref-Primary, Physician Primary Care Provider Paulino Barker MD Unavailable [phone] Reason for Referral * Consultation (Routine: Next available opening) - Pending Review Specialty Diagnoses / Procedures Referred By Ara jett Referred To Contact Diagnoses Encounter for preconception consultation Leatha Wallace [facility] [address] [place] [address] Maternal Med [address] [place] [address] Referral ID Status Reason Start Date Expiration Date V isits Requested Visits Authorized [id number] Pending Review 03/18/2024 03/18/2025 1 1 Question Answer Preferred Location: [facility] Indication: twin , confirm chorionicity JEWEL BUCKNER Consultation (unrelated to Ultrasound findings): Yes Inflammatory Bowel Disease Clinic: Joint MFM and GI Consultation: No Chronic Kidney Disease: Joint MFM and Nephrology Consultation No Genetic Counseling Consultation: No fax December [facility],[phone] Comments >> Patient may proceed with recommendations for further testing as directed by the Maternal Medicine Specialist >> Please be aware that coverage of these services is subject to the terms and limitations of your health insurance plan. Call member services at your health plan with any benefit or coverage questions. Encounter Details Date Type Department Care Team (Latest Contact Info) Description 03/18/2024 Transcribe Orders [facility] [place] [address] [place] [address] Johnkaliaglenroy, Leatha [facility] [address] [place] [address] Encounter for preconception consultation (Primary Dx) Social History Tobacco Use Types [...] Associated Diagnoses Orde r Schedule Mat Med [facility] Referral - Preconception Referral Routine: Next available opening Encounter for preconception consultation Expected: 03/18/2024 (Approximate), Expires: 09/14/2024 documented as of this encounter Visit Diagnoses Diagnosis Encounter for preconception consultation- Primary documented in this encounter Additional Health Concerns Assessment Noted Time PHQ-9 Depression Total Score: 3 09/19/19 20 10:37 AM INSTRUMENT TECHNICIAN APPRENTICE documented as of this encounter Care Teams Vascular Ultrasound Technologist Relationship Specialty Start Date End Date No Ref-Primary, Physician PCP - General 09/19/19 Paulino Barker MD [address] [place] [address] Assigned PCP 08/25/21 documented as of this encounter
--- OUTSIDE RECORDS SUMMARY | 2024-06-06 12:12 | XMS_ITS | Encounter Summary ---
Author Organization [place] Address [address] [place] [address] Care Team Providers Care Meat Supervisor Name Role Phone No Ref-Primary, Physician Primary Care Provider Comfort Louise MD Unavailable [phone] Gretta Resendez MD Unavailable [phone] Paulino Barker MD Unavailable Chuckie Perry MD Unavailable Encounter Details Date Type Department Care Team (Late st Contact Info) Description 06/10/[address] [facility] [address] [place] [address] Comfort Louise MD [address] [place] [address] Social History Tobacco Use [...] Depression Total Score: 3 09/19/19 10:37 AM BLOCK CUBER documented as of this encounter Care Teams Meat Supervisor Relationship Specialty Start Date End Date No Ref-Primary, Physician PCP - General 09/19/19 Comfort Louise MD [address] [place] [address] Assigned OBGYN Provider 06/26/21 Gretta Resendez MD [address] [place] [address] Assigned OBGYN Provider 07/24/21 3 Paulino Barker MD [address] [address] Assigned PCP 08/25/21 Chuckie Perry MD [address] [place] [address] Assigned OBGYN Provider 01/20/23 documented as of this encounter
--- OUTSIDE RECORDS SUMMARY | 2024-06-06 12:12 | XMS_ITS | Encounter Summary ---
Author Organization [place] Address [address] [place] [address] Care Team Providers Care Dance Hall Hostess Name Role Phone No Ref-Primary, Physician Primary Care Provider Comfort Louise MD Unavailable Gretta Resendez MD Unavailable [phone] Paulino Barker MD Unavailable [phone] Chuckie Perry MD Unavailable Reason for Visit * Reason Onset Date Comments Results 06/24/2021 Encounter Details Date Type Department Care Team (Late st Contact Info) Description 06/24/2021 [facility] Medical Advice [facility] [address] [place] [address] Comfort Louise MD [address] [place] [address] Results Social History Tobacco Use [...] Depression Total Score: 3 09/19/19 10:37 AM OBSTETRICAL TECH documented as of this encounter Care Teams Dance Hall Hostess Relationship Specialty Start Date End Date No Ref-Primary, Physician PCP - General 09/19/19 Comfort Louise MD [address] [place] [address] Assigned OBGYN Provider 06/26/21 Gretta Resendez MD [address] [place] [address] Assigned OBGYN Provider 07/24/21 3 Paulino Barker MD [address] [address] Assigned PCP 08/25/21 Chuckie Perry MD [address] [place] [address] Assigned OBGYN Provider 01/20/23 documented as of this encounter
--- OUTSIDE RECORDS SUMMARY | 2024-06-06 12:12 | XMS_ITS | Encounter Summary ---
Author Organization [place] Address [address] [place] [address] Care Team Providers Care Product Safety Head Name Role Phone No Ref-Primary, Physician Primary Care Provider Comfort Louise MD Unavailable [phone] Gretta Resendez MD Unavailable [phone] Paulino Barker MD Unavailable Chuckie Perry MD Unavailable Encounter Details Date Type Department Care Team (Late st Contact Info) Description 07/06/[address] [facility] [address] [place] [phone] Comfort Louise MD [address] [place] [address] Social History Tobacco Use Types [...] Depression Total Score: 3 09/19/19 10:37 AM PRECISION INSTRUMENT AND TOOL MAKER documented as of this encounter Care Teams Product Safety Head Relationship Specialty Start Date End Date No Ref-Primary, Physician PCP - General 09/19/19 Comfort Louise MD [address] [place] [address] Assigned OBGYN Provider 06/26/21 Gretta Resendez MD [address] [place] [address] Assigned OBGYN Provider 07/24/21 3 Paulino Barker MD [address] [address] Assigned PCP 08/25/21 Chuckie Perry MD [address] [place] [address] Assigned OBGYN Provider 01/20/23 documented as of this encounter
--- OUTSIDE RECORDS SUMMARY | 2024-06-06 12:12 | XMS_ITS | Encounter Summary ---
Author Organization [place] Address [address] [place] [address] Care Team Providers Care Grain Combine Driver Name Role Phone No Ref-Primary, Physician Primary Care Provider Comfort Louise MD Unavailable [phone] Gretta Resendez MD Unavailable [phone] Paulino Barker MD Unavailable [phone] Chuckie Perry MD Unavailable Encounter Details Date Type Department Care Team (Late st Contact Info) Description 07/18/2021 MyC Medical Advice [facility] [address] [place] [address] Gretta Resendez MD [address] [place], [place] [address] Social History Tobacco Use Types Packs/Day Years [...] Total Score: 3 09/19/19 20 10:37 AM POLE MAKER documented as of this encounter Care Teams Grain Combine Driver Relationship Specialty Start Date End Date No Ref-Primary, Physician PCP - General 09/19/19 Comfort Louise MD [address] [place] [address] Assigned OBGYN Provider 06/26/21 Gretta Resendez MD [address] [place] [address] Assigned OBGYN Provider 07/24/21 3 Paulino Barker MD [address] [address] Assigned PCP 08/25/21 Chuckie Perry MD [address] [place] [address] Assigned OBGYN Provider 01/20/23 documented as of this encounter
--- OUTSIDE RECORDS SUMMARY | 2024-06-06 12:12 | XMS_ITS | Encounter Summary ---
Author Organization [place] Address [address] [place] [address] Care Team Providers Care Battery Service Technician Name Role Phone No Ref-Primary, Physician Primary Care Provider Marlene Dolan MD Unavailable Comfort Louise MD Unavailable [phone] Gertta Resendez MD Unavailable [phone] Paulino Barker MD Unavailable [phone] Chuckie Perry MD Unavailable Encounter Details Date Type Department Care Team (Late st Contact Info) Description 11/07/2019 MyC Medical Advice [facility] [address] [place] [address] Marlene Dolan MD [address], [address] [place] [address] Social History Tobacco Use Types Packs/Day Years [...] Total Score: 3 09/19/19 20 10:37 AM 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 documented as of this encounter Care Teams Battery Service Technician Relationship Specialty Start Date End Date No Ref-Primary, Physician PCP - General 09/19/19 Marlene Dolan MD [address], [address] [address] Assigned OBGYN Provider 07/09/20 1 Comfort Louise MD [address] [place] [address] Assigned OBGYN Provider 06/26/21 Gretta Resendez MD [address] [place] [address] Assigned OBGYN Provider 07/24/21 3 Paulino Barker MD [address] [address] Assigned PCP 08/25/21 Chuckie Perry MD [address] [place] [address] Assigned OBGYN Provider 01/20/23 documented as of this encounter
--- OUTSIDE RECORDS SUMMARY | 2024-06-06 12:12 | XMS_ITS | Encounter Summary ---
Author Organization [place] Address [address] [place] [address] Care Team Providers Care Glass Novelty Maker Name Role Phone No Ref-Primary, Physician Primary Care Provider Comfort Louise MD Unavailable [phone] Gretta Resendez MD Unavailable [phone] Paulino Barker MD Unavailable [phone] Chuckie Perry MD Unavailable Encounter Details Date Type Department Care Team (Late st Contact Info) Description 06/14/[address] 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
--- OUTSIDE RECORDS SUMMARY | 2024-06-06 12:12 | XMS_ITS | Clinical Summary ---
Author Organization [facility] Address [place], [place] [address] Care Team Providers Care Government Program Manager Name Role Phone Rashad Knight MD Primary Care Provide r Allergies No known active allergies Medications Medication Sig Dispensed Refills Start Date End Date Status PNV [id number] tabletIndications:Encnt r for suprvsn of normal first , unsp trimester Take 1 tablet by mouth once daily. 0 06/20/2018 Active ferrous sulfate 325 mg delayed release tabletIndications:Anemi a, unspecified type Take 1 tablet by mouth once daily. 0 06/20/2018 Active Active Problems Problem Noted Date Diagnosed Date Supervision of normal first , antepartu 06/20/2018 Overview (06/20/2018): 27 y.o. Medical concerns: Anemia, Heart palpitations [...] Comments Blood Pressure 118/74 09/16/2015 3:29 PM BRUSHER TENDER Pulse 60 03/05/2012 4:28 PM CDT Temperature [...] 06/20/2019 06/20/2018 COVID-19 vaccine series ( season) 2024 08/22/2021, 01/19/2021, 12/30/2020 Influenza for age 9-49 05/18/2024 09/14/2008, 2006 Pap test for age 21-65 03/09/2025 , 03/09/2022, 01/14/2019, Additional history exists HIV for age 15-65 Completed 06/20/2018, 09/16/2015 Pneumococcal series for age 6-64 Aged Out No longer eligible based on patient's age to complete this topic Procedures Procedure Name Priority Date/Time Associated Diagnosis Comments HPV HIGH RISK Routine 03/09/2022 12:00 PM CDT ANTI HIV 1/2 Routine 06/20/2018 10:14 AM CDT Encntr for suprvsn of normal first , unsp trimester from Last 3 Months or Most Recently Relevant to Health Maintenance Results * HPV HIGH RISK (03/09/2022 12:00 PM CDT) TYPE 16 Negative Negative 03/14/2022 11:14 AM CDT [facility] TYPE 18 Negative Negative 03/14/2022 11:14 AM CDT [facility] OTHER HIGH RISK TYPES Negative Negative 03/14/2022 11:14 AM CDT [facility] Other (Cervical/Vagina l) 03/09/2022 12:00 PM CDT 03/13/2022 8:27 AM CDT Narrative [facility] - 03/14/2022 11:14 AM CDT HPV types 16, 18, 31, 33, 35, 39, 45, 51, 52, 56, 58, 59, 66 and 68 DNA were undetectable or below the pre-set threshold. Methodology: Abimbola Bambi 4800 HPV Test Tejal Hewitt SHARED SERVICES REPRESENTATIVE MICROBIOLOGY [facility] [address] [place] [address], * ANTI HIV 1/2 (06/20/2018 10:14 AM CDT) HIV-1/HIV-2 ANTIBODY Non-Reacti ve Non-Reacti ve 06/20/2018 2:22 PM CDT [facility] Comment:HIV-1 p24 and HIV-1/ HIV-2 Ab not detected. Blood BLOOD SPECIMEN / Unknown Venipuncture / Unknown 06/20/2018 10:14 AM CDT 06/20/2018 10:14 AM CDT Moy Breen MD SEND OUTS [facility] [address] [place] [address], from Last 3 Months or Most Recently Relevant to Health Maintenance Care Teams Government Program Manager Relationship Specialty Start Date End Date Rashad Knight MD [address] [place] [address] PCP - General 06/17/09
[2024-06-06 12:30] LABS: Bacteria Urine Moderate; RBC Urine 0-2 (0-2); Squamous Epithelial Cell Urine Moderate (None-Few); WBC Urine 0-2 (0-5)
[2024-06-06 12:48] LABS: Basophils Absolute Auto 0.01 K/uL (0.00-0.30); Basophils Percent Auto 0.1 % (0.0-3.0); Eosinophils Absolute Auto 0.01 K/uL (0.00-0.50); Eosinophils Percent Auto 0.1 % (0.0-7.0); Hematocrit 32.4 % (33.0-51.0); Hemoglobin* 10.6 gm/dL (12.0-16.0); Immature Granulocytes Abs Auto 0.05 K/uL (0.00-0.30); Immature Granulocytes Pct Auto 0.6 %; Mean Corpuscular HGB Conc 33 gm/dL (32-36); Mean Corpuscular Hemoglobin 31 pg (26-34); Mean Corpuscular Volume 94 fL (80-100); Monocytes Percent Auto 4.3 % (0.0-11.0); Neutrophils Percent Auto 85.9 % (42.0-72.0); Platelet Count* 167 K/uL (140-440); Red Blood Count 3.45 m/uL (4.00-5.20); White Blood Count* 8.44 K/uL (4.50-11.00)
[2024-06-06 12:51] LABS: Slide Review Reflex No
[2024-06-06 13:00] VITALS: BP 120/69; PULSE 92; RESP 20; O2SAT 98
[2024-06-06 13:06] LABS: Albumin* 3.9 g/dL (3.3-5.0); Chloride* 105 mmol/L (96-114); Potassium* 3.5 mmol/L (3.6-5.1); Sodium* 134 mmol/L (135-149)
[2024-06-06 13:08] LABS: Creatinine* 0.4 mg/dL (0.5-1.5); Est. Creatinine Clearance* 181.69; Estimated Glomerular Filt Rate 135 ml/min
[2024-06-06 13:09] LABS: Alanine Aminotransferase* 28 U/L (4-35); Alkaline Phosphatase* 56 U/L (40-150); Anion Gap 7 mEq/L (7-15); Aspartate Amino Transferase* 25 U/L (12-35); Bilirubin Total* 0.4 mg/dL (0.1-1.5); Blood Urea Nitrogen* 6 mg/dL (5-24); Calcium* 8.8 mg/dL (8.4-10.6); Carbon Dioxide* 22 mmol/L (20-32); Glucose* 77 mg/dL (60-115); Total Protein* 6.4 g/dL (6.0-8.3)
[2024-06-06 13:10] LABS: Magnesium* 1.8 mg/dL (1.5-2.6)
[2024-06-06 13:12] LABS: C Reactive Protein* 2.1 mg/dL (0.5-1.0); D Dimer Quantitative* 0.58 ug/ml (0.00-0.50)
[2024-06-06 13:50] LABS: PCR FLU A Negative PCR FLU A (Negative); PCR FLU B Negative PCR FLU B (Negative); PCR RSV Negative PCR RSV (Negative); SARS PCR* Negative SARS-CoV-2 (Negative)
--- NOTE | 2024-06-06 14:28 | CRLHL7_ITS ---
For Patients: As a result of the Century Cures Act, medical imaging exams and procedure reports are released immediately into your electronic medical record. You may view this report before your referring provider. If you have questions, please contact your health care provider. INDICATION: Shortness of breath, patient is 20 weeks TECHNIQUE: CT chest PE was acquired with 95 cc Isovue 370 intravenous contrast. COMPARISON: None. FINDINGS: Heart and vasculature: Contrast opacification of the pulmonary arterial tree is adequate. No sign of pulmonary embolism. Heart size is normal. Thoracic aorta and pulmonary artery are normal in caliber. Lungs and pleural: No suspicious nodules or infiltrates. No pleural effusions, pleural thickening, or pneumothorax. Lymph nodes/mediastinum: No mediastinal, hilar, or axillary adenopathy. Chest wall: No masses. Upper abdomen: Normal. Bones: Unremarkable for age. IMPRESSION: Unremarkable chest CTA. No evidence of pulmonary embolus. Please note that all CT scans at this facility use dose modulation, iterative reconstruction, and/or weight-based dosing when appropriate to reduce radiation dose to as low as reasonably achievable. Dictated by Darion Thompson MD @ 06/06/2024 3:19:41 PM (Electronically Signed)
[2024-06-06 15:08] VITALS: BP 122/63; PULSE 82; RESP 16; O2SAT 98
[2024-06-06 15:15] LABS: Troponin I* < 0.01 ng/mL (0.01-0.04)
[2024-06-06 15:29] LABS: Troponin I* < 0.01 ng/mL (0.01-0.04)
== END 2024-06-06 15:58 | disposition home or self-care (01) ==
PROVIDERS: Emergency Provider Family Medicine; PCP Advanced Practice Midwife
DX: R06.02 Shortness of breath (principal); O30.002 Twin pregnancy, unspecified number of placenta and unspecified number of amniotic sacs, second trimester; Z3A.20 20 weeks gestation of pregnancy
CPT/HCPCS: 36415; 71275; 80053; 81001; 83735; 84484; 85025; 85379; 86140; 87086; 87631; 93970; 99284; 99285; Q9967

== ENCOUNTER 2024-07-04 08:18 | Outpatient (CLI) | payer OTHER, MEDICAID, SELFPAY ==
--- NOTE | 2024-07-04 08:15 | CRLHL7_ITS ---
For Patients: As a result of the Cures Act, medical imaging exams and procedure reports are released immediately into your electronic medical record. You may view this report before your referring provider. If you have questions, please contact your health care provider. Growth, di-di twins INDICATION: Third trimester scan, evaluate growth in a twin gestation. COMPARISON: 05/27/2024 TECHNIQUE: Real-time grayscale imaging of the twins was performed. FINDINGS: Sonographic imaging demonstrates a living twin intrauterine gestation. Twin A demonstrates a regular cardiac rate of 124 beats per minute. Twin A has a vertex position. The placenta lies posterior. Amniotic fluid volume appears normal and the largest fluid pocket measures 6.6 cm. The estimated weight is 702 gm which lies at the 58th percentile. BPD 50th percentile. HC is 21st percentile. AC is 65th percentile. FL is 39th percentile. The HC/AC ratio measures 1.08 range (1.04-1.22). Twin B demonstrates a regular cardiac rate of 144 beats per minute. Twin B has a vertex position. The placenta lies posterior. Amniotic fluid volume appears normal and the largest fluid pocket measures 7.4 cm. The estimated weight is 830 gm which lies at the 95th percentile. BPD 82nd percentile. HC 62nd percentile. AC 84th percentile. FL 85th percentile. The HC/AC ratio measures 1.08 range (1.04-1.22). IMPRESSION: Twin A: Sonographic gestational age 24 weeks 2 days and sonographic due date of 10/22/2024. Good correlation with dates. Estimated weight 58th percentile. Abdominal circumference 65th percentile. Twin B: Sonographic gestational age 25 weeks 3 days and sonographic due date of 10/14/2024. Sonographic age 9 days ahead of the clinical age and 8 days ahead of twin A. sonographic gestational age 95th percentile. Abdominal circumference 84th percentile. Dictated by Moy Gray MD @ 07/07/2024 6:27:17 AM (Electronically Signed)
== END 2024-07-04 08:19 | disposition home or self-care (01) ==
LOC: US 08:18
PROVIDERS: PCP Advanced Practice Midwife; Visit Provider Obstetrics & Gynecology
DX: O30.041 Twin pregnancy, dichorionic/diamniotic, first trimester (principal); Z3A.25 25 weeks gestation of pregnancy
CPT/HCPCS: 76816

== ENCOUNTER 2024-07-30 09:03 | Outpatient (CLI) | payer OTHER, BC, SELFPAY ==
--- OUTSIDE RECORDS SUMMARY | 2024-08-02 19:48 | XMS_ITS | Encounter Summary ---
Author Organization [place] Address [address] [place] [address] Care Team Providers Care Route Process Administrator Name Role Phone No Ref-Primary, Physician Primary Care Provider Comfort Louise MD Unavailable [phone] Gretta Resendez MD Unavailable [phone] Paulino Barker MD Unavailable Chuckie Perry MD Unavailable [phone] Reason for Visit * Reason Onset Date Comments Results 06/24/2021 Encounter Details Date Type Department Care Team (Late st Contact Info) Description 06/24/2021 [facility] Medical Advice [facility] [address] [place] [address] Comfort Louise MD [address] [place] [address] Results Social History Tobacco Use Types Packs/Day [...] Assigned at Female 05/30/2021 7:49 AM CDT Legal Sex Female 6:08 PM CDT Gender Identity Female 05/30/2021 7:49 AM [...] Total Score: 3 09/19/19 20 10:37 AM PET CARE ASSISTANT documented as of this encounter Care Teams Route Process Administrator Relationship Specialty Start Date End Date No Ref-Primary, Physician PCP - General 09/19/19 Comfort Louise MD [address] [place] [address] Assigned OBGYN Provider 06/26/21 Gretta Resendez MD [address] [place] [address] Assigned OBGYN Provider 07/24/21 3 Paulino Barker MD [address] [address] Assigned PCP 08/25/21 Chuckie Perry MD [address] [place] [address] Assigned OBGYN Provider 01/20/23 documented as of this encounter
--- OUTSIDE RECORDS SUMMARY | 2024-08-02 19:48 | XMS_ITS | Encounter Summary ---
Author Organization [place] Address [address] [place] [address] Care Team Providers Care Painter Shipyard Name Role Phone No Ref-Primary, Physician Primary Care Provider Marlene Dolan MD Unavailable Comfort Louise MD Unavailable Gretta Resendez MD Unavailable [phone] Paulino Barker MD Unavailable Chuckie Perry MD Unavailable [phone] Encounter Details Date Type Department Care Team (Late st Contact Info) Description 11/07/[address] [facility] [address] [place] [address] Marlene Dolan MD [address] [place] [address] Social History Tobacco Use Types Packs/Day Years Used Date Smoking Tobacco: Never Smokeless Tobacco: Never Alcohol Use Standard Drinks/Week Comments Yes 0 (1 standard drink = 0.6 oz pur e alcohol) social PHQ-2 Answer Date Recorded PHQ-2 Score 0 09/19/2019 Comments No Sex and Gender Information Value Date Recorded [...] Total Score: 3 09/19/19 20 10:37 AM DIGITAL FORENSICS INVESTIGATOR documented as of this encounter Care Teams Painter Shipyard Relationship Specialty Start Date End Date No Ref-Primary, Physician PCP - General 09/19/19 Marlene Dolan MD [address] [address] Assigned OBGYN Provider 07/09/20 1 Comfort Louise MD [address] [place] [address] Assigned OBGYN Provider 06/26/21 Gretta Resendez MD [address] [place] [address] Assigned OBGYN Provider 07/24/21 3 Paulino Barker MD [address] [address] Assigned PCP 08/25/21 Chuckie Perry MD [address] [place] [address] Assigned OBGYN Provider 01/20/23 documented as of this encounter
--- OUTSIDE RECORDS SUMMARY | 2024-08-02 19:48 | XMS_ITS | Encounter Summary ---
Author Organization [place] Address [address] [place] [address] Care Team Providers Care Diabetes Physician Name Role Phone No Ref-Primary, Physician Primary Care Provider Paulino Barker MD Unavailable [phone] Reason for Referral * Diagnostic Imaging Ultrasound (Routine) - Pending Review Specialty Diagnoses / Procedures Referred By Melaniac johnie Referred To Contact Radiology. Diagnoses Dichorionic diamniotic twin in first trimester Procedures MFM Twins Josue Miranda MD [address] [place] [address] Phone: tel: fax: Referral ID Status Reason Start Date Expiration Date V isits Requested Visits Authorized [id number] Pending Review 04/22/2024 04/22/2025 1 1 Reason for Visit * Diagnostic Imaging Ultrasound (Routine) - Pending Review Specialty Diagnoses / Procedures Referred By Ara jett Referred To Contact Radiology. Diagnoses Dichorionic diamniotic twin in first trimester Procedures MFM Twins Josue Miranda MD [address] [place] [address] Phone: tel: fax: Referral ID Status Reason Start Date Expiration Date V isits Requested Visits Authorized [id number] Pending Review 04/22/2024 04/22/2025 1 1 Encounter Details Date Type Department Care Team (Latest Contact Info) Description 05/27/2024 9:10 AM CDT - 05/27/2024 11:59 PM CDT Hospital Encounter [facility] [place] [address] [facility] [address] [place] [address] Josue Pace MD [address] [place] [address] Dichorionic diamniotic twin in first [...] this encounter Medications at Time of Discharge aspirin (ASA) 81 MG chewable tablet Take [...] ? Study Date: ??05/27/2024 9:22am Pat. NO: ??[id number] ?Referring ??MD: BRAD LAU Site: ? Screen Printing Stencil Preparer: EDWARD Escamilla: ??1990 ?Age: ?? 33 ----- INDICATION ----- [...] Humerus ? 29.0 ? mm ?19w 3d ?Bhvaana Weight Calculation: EFW ?265 ? g ? 57% ?Hadlock EFW (lb,oz) ?0 lb 9 ?oz EFW by ?Hadlock (NXH-CQ-XN-FL) EFW discordance ?4.9 ? % Head / Face / Neck Biometry: Soil Sampler ?5.5 ? mm CM ? 4.1 ? [...] lb 10 ? oz EFW by ?Hadlock (BEA-OR-KU-FL) EFW discordance ?4.9 ? % Head / Face / Neck Biometry: Soil Sampler ?7.1 ? mm CM ? 2.6 ? [...] view. RVOT view. LVOT view. 3-vessel view. 0-clbvta-jahmfvf view. Situs. Aortic arch view. Bicaval view. [...] view. RVOT view. LVOT view. 3-vessel view. 1-xnxmmw-toogwgs view. Situs. Aortic arch view. Bicaval view. [...] . She had a previous consultation with [facility] on 04/22/24. I discussed the findings on today's ultrasound with the patient. I reviewed the limitations of ultrasound both in detecting aneuploidy and structural abnormalities. Ultrasound can routinely detect 80-90% of structural abnormalities. She opted not to do aneuploidy screening or testing. Serial ultrasounds for growth every 4 weeks are recommended, and these can be done through radiology in [place]. If complications or US abnormalities arise, she should be re-referred to [facility] for follow up. BPP weekly at 36 [...] CRANE Study Date: 05/27/2024 9:22am Pat. NO: [id number] Referring MD: BRAD LAU Site: Screen Printing Stencil Preparer: Ramin Gillette RDMS : 1990 Age: 33 [...] EFW (lb,oz) 0 lb 9oz EFW by Hadlock(UMF-CF-RY-FL) EFW discordance 4.9% Head / Face / Neck Biometry: Soil Sampler 5.5mm CM 4.1mm Nasal bone 5.7mm Fetus 2: BIOMETRY ----- BPD 45.8mm 19w 6dHadlock OFD 57.5mm 18w 6dNicolaides HC 165.9mm 19w 2dHadlock Cerebellum tr 18.7mm 18w 2dNicolaides Nuchal fold 3.2mm AC 144.5mm 19w 5d 80%Hadlock Femur 27.6mm 18w 3dHadlock Humerus 27.9mm 19w 0dJeanty Weight Calculation: EFW 279g 72%Hadlock EFW (lb,oz) 0 lb 10oz EFW by Hadlock(NGR-OC-YT-FL) EFW discordance 4.9% Head / Face / Neck Biometry: Soil Sampler 7.1mm CM 2.6mm Nasal bone 5.9mm Fetus 1: ANATOMY ----- The following structures appear normal: Head / Neck Cranium. Head size. Head shape.Lateral ventricles. Choroid plexus. Midline falx. Cavum septi pellucidi.Cerebellum. Cisterna magna. Parenchyma. Thalami. Vermis. Neck. Nuchal fold. Face Lips. Profile. Nose. Maxilla.Mandible. Orbits. Lens. Heart / Thorax 4-chamber view. RVOT view. LVOT view.3-vessel view. 9-dpzuve-ppbcbxs view. Situs. Aortic arch view. Bicavalview. Ductal [...] 4-chamber view. RVOT view. LVOT view.3-vessel view. 9-xroqlq-nyikosz view. Situs. Aortic arch view. Bicavalview. Ductal [...] . She had a previous consultation with [facility] on 04/22/24. I discussed the findings on today's ultrasound with the patient. Ireviewed the limitations of ultrasound both in detecting aneuploidy andstructural abnormalities. Ultrasound can routinely detect 80-90% of structural abnormalities. She opted not todo aneuploidy screening or testing. Serial ultrasounds for growth every 4 weeks are recommended, andthese can be done through radiology in [place]. If complications or USabnormalities arise, she should be re-referred to [facility] for follow up. BPP weekly at 36 [...] imaging the cervix appears long and closed. 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
--- OUTSIDE RECORDS SUMMARY | 2024-08-02 19:48 | XMS_ITS | Encounter Summary ---
Author Organization [place] Address [address] [facility] [place] [address] Care Team Providers Care Sales And Marketing Manager Name Role Phone No Ref-Primary, Physician Primary Care Provider Paulino Barker MD Unavailable [phone] Reason for Visit * Reason Comments Ultrasound L2-di/di twins Encounter Details Date Type Department Care Team (Late st Contact Info) Description 05/27/2024 10:45 AM CDT Office Visit [facility] [place] [address] [facility] [address] [place] [address] Josue Pace MD [address] [facility] [address] [place] [address] Dichorionic diamniotic twin in second [...] Total Score: 3 09/19/19 20 10:37 AM GREENS PICKER documented as of this encounter Care Teams Sales And Marketing Manager Relationship Specialty Start Date End Date No Ref-Primary, Physician PCP - General 09/19/19 Paulino Barker MD [address] [address] Assigned PCP 08/25/21 documented as of this encounter
--- OUTSIDE RECORDS SUMMARY | 2024-08-02 19:48 | XMS_ITS | Encounter Summary ---
Author Organization [place] Address [address] [place] [address] Care Team Providers Care Aerial Erector Name Role Phone No Ref-Primary, Physician Primary Care Provider Comfort Louise MD Unavailable [phone] Gretta Resendez MD Unavailable [phone] Paulino Barker MD Unavailable Chuckie Perry MD Unavailable Encounter Details Date Type Department Care Team (Late st Contact Info) Description 07/06/2021 [facility] Medical Advice [facility] [address] [place] [phone] Comfort Louise MD [address] [place] [address] Social History Tobacco Use Types [...] Total Score: 3 09/19/19 20 10:37 AM GRADUATE ADVISOR documented as of this encounter Care Teams Aerial Erector Relationship Specialty Start Date End Date No Ref-Primary, Physician PCP - General 09/19/19 Comfort Louise MD [address] [place] [address] Assigned OBGYN Provider 06/26/21 Gretta Resendez MD [address] [place] [address] Assigned OBGYN Provider 07/24/21 3 Paulino Barker MD [address] [address] Assigned PCP 08/25/21 Chuckie Perry MD [address] [place] [address] Assigned OBGYN Provider 01/20/23 documented as of this encounter
--- OUTSIDE RECORDS SUMMARY | 2024-08-02 19:48 | XMS_ITS | Encounter Summary ---
Author Organization [place] Address [address] [place] [address] Care Team Providers Care Cloth Mender Name Role Phone No Ref-Primary, Physician Primary Care Provider Gretat Rseendez MD Unavailable [phone] Paulino Barker MD Unavailable [phone] Chuckie Perry MD Unavailable Encounter Details Date Type Department Care Team (Late st Contact Info) Description 07/26/2021 MyC Medical Advice [facility] Women's [address] [place] [address] Gretta Resendez MD [address] [place], [place] [address] Social History Tobacco Use Types Packs/Day Years [...] COVID-19? No / Unsure 07/25/2021 9:32 AM MIRROR FINISHING MACHINE OPERATOR documented as of this encounter Plan of Treatment Not on file documented as of this encounter Visit Diagnoses Not on filedocumented in this encounter Additional Health Concerns Assessment Noted Time PHQ-9 Depression Total Score: 3 09/19/19 10:37 AM MIRROR FINISHING MACHINE OPERATOR documented as of this encounter Care Teams Cloth Mender Relationship Specialty Start Date End Date No Ref-Primary, Physician PCP - General 09/19/19 Gretta Resendez MD [address] [place] [address] Assigned OBGYN Provider 07/24/21 3 Paulino Barker MD [address] [address] Assigned PCP 08/25/21 Chuckie Perry MD [address] [place] [address] Assigned OBGYN Provider 01/20/23 documented as of this encounter
--- OUTSIDE RECORDS SUMMARY | 2024-08-02 19:48 | XMS_ITS | Clinical Summary ---
Author Organization [employer] [facility] Address [place], [place] [address] Care Team Providers Care Control Center Operator Name Role Phone Rashad Knight MD Primary Care Provide r Allergies No known active allergies Medications Medication Sig Dispensed Refills Start Date End Date Status PNV [id number] tabletIndications:Encnt r for suprvsn of normal first [...] Comments Blood Pressure 118/74 09/16/2015 3:29 PM ART DEALER Pulse 60 03/05/2012 4:28 PM CDT Temperature [...] 16 Negative Negative 03/14/2022 11:14 AM CDT [facility] TYPE 18 Negative Negative 03/14/2022 11:14 AM CDT [facility] OTHER HIGH RISK TYPES Negative Negative 03/14/2022 11:14 AM CDT [facility] Other (Cervical/Vagina l) 03/09/2022 12:00 PM CDT 03/13/2022 8:27 AM CDT Narrative [facility] - 03/14/2022 11:14 AM CDT HPV types 16, 18, 31, 33, 35, 39, 45, 51, 52, 56, 58, 59, 66 and 68 DNA were undetectable or below the pre-set threshold. Methodology: Abimbola Bambi 4800 HPV Test Tejal Hewitt LEAD PERFORMANCE SUPPORT ANALYST MICROBIOLOGY [facility] [address] [place] [address], * ANTI HIV 1/2 (06/20/2018 10:14 AM CDT) HIV-1/HIV-2 ANTIBODY Non-Reacti ve Non-Reacti ve 06/20/2018 2:22 PM CDT [facility] Comment:HIV-1 p24 and HIV-1/ HIV-2 Ab not detected. Blood BLOOD SPECIMEN / Unknown Venipuncture / Unknown 06/20/2018 10:14 AM CDT 06/20/2018 10:14 AM CDT Moy Breen MD SEND OUTS [facility] [address] [place] [address], from Last 3 Months or Most Recently Relevant to Health Maintenance Care Teams Control Center Operator Relationship Specialty Start Date End Date Rashad Knight MD [address] [place] [address] PCP - General 06/17/09
--- OUTSIDE RECORDS SUMMARY | 2024-08-02 19:48 | XMS_ITS | Encounter Summary ---
Author Organization [place] Address [address] [place] [address] Care Team Providers Care Creative Art Director Name Role Phone No Ref-Primary, Physician Primary Care Provider Paulino Barker MD Unavailable [phone] Encounter Details Date Type Department Care Team [...] Total Score: 3 09/19/19 20 10:37 AM CORSETS SALESPERSON documented as of this encounter Care Teams Creative Art Director Relationship Specialty Start Date End Date No Ref-Primary, Physician PCP - General 09/19/19 Paulino Barker MD [address] [address] Assigned PCP 08/25/21 documented as of this encounter
--- OUTSIDE RECORDS SUMMARY | 2024-08-02 19:48 | XMS_ITS | Clinical Summary ---
Author Organization [place] Address [address] [place] [address] Care Team Providers Care Shading Painter Name Role Phone No Ref-Primary, Physician Primary Care Provider Paulino Barker MD Unavailable [phone] Allergies Active Allergy Reactions Criticality Noted Date Comments Penicillins Rash Low 02/15/2016 Medications Vit-Fe Fumarate-FA ( MULTIVITAMIN W/IRON) 27-0.8 MG [...] Description 05/27/2024 10:45 AM CDT Office Visit [facility] [address] [facility] [place] [address] Josue Pace MD Dichorionic diamniotic twin in second trimester (Primary Dx) 05/27/2024 9:10 AM CDT - 05/27/2024 11:59 PM CDT Hospital Encounter [facility] [address] [facility] [address] [place] [address] Josue Pace MD Dichorionic diamniotic twin in first trimester Discharge Disposition: Home or Self Care 05/27/2024 Travel 05/22/2024 Travel from Last 3 Months Immunizations Name Administration [...] (154 lb 14.4 oz) 09/06/2021 1:15 PM BUILDING PRESSURE WASHER Height 166.4 cm (5' 5.5) 07/21/2021 9:49 [...] CDT Dichorionic diamniotic twin in first trimester HIV ANTIGEN ANTIBODY COMBO Routine 06/23/2021 10:29 [...] ? Study Date: ??05/27/2024 9:22am Pat. NO: ??[id number] ?Referring ??MD: DECEMBER NAMCHAMP Site: ? Metallographer: Ramin Gillette RDMS : ??1990 ?Age: ?? [...] ?0 lb 9 ?oz EFW by ?Hadlock (DUT-BN-HN-FL) EFW discordance ?4.9 ? % Head / Face / Neck Biometry: Precast Concrete Products Installer ?5.5 ? mm CM ? 4.1 ? [...] lb 10 ? oz EFW by ?Hadlock (IBU-LR-GV-FL) EFW discordance ?4.9 ? % Head / Face / Neck Biometry: Prec[employer] Products Installer ?7.1 ? mm CM ? 2.6 ? [...] view. RVOT view. LVOT view. 3-vessel view. 5-yfuabb-kjwcqfz view. Situs. Aortic arch view. Bicaval view. [...] view. RVOT view. LVOT view. 3-vessel view. 0-vulcee-qqrwmml view. Situs. Aortic arch view. Bicaval view. [...] . She had a previous consultation with [facility] on 04/22/24. I discussed the findings on today's ultrasound with the patient. I reviewed the limitations of ultrasound both in detecting aneuploidy and structural abnormalities. Ultrasound can routinely detect 80-90% of structural abnormalities. She opted not to do aneuploidy screening or testing. Serial ultrasounds for growth every 4 weeks are recommended, and these can be done through radiology in [place]. If complications or US abnormalities arise, she should be re-referred to [facility] for follow up. BPP weekly at 37 [...] CRANE Study Date: 05/27/2024 9:22am Pat. NO: [id number] Referring MD: BRAD LAU Site: Metallographer: Ramin Gillette RDMS : 1990 Age: 33 [...] EFW (lb,oz) 0 lb 9oz EFW by Hadlock(XRN-TU-PV-FL) EFW discordance 4.9% Head / Face / Neck Biometry: Prec[employer] Products Installer 5.5mm CM 4.1mm Nasal bone 5.7mm Fetus 2: BIOMETRY ----- BPD 45.8mm 19w 6dHadlock OFD 57.5mm 18w 6dNicolaides HC 165.9mm 19w 2dHadlock Cerebellum tr 18.7mm 18w 2dNicolaides Nuchal fold 3.2mm AC 144.5mm 19w 5d 80%Hadlock Femur 27.6mm 18w 3dHadlock Humerus 27.9mm 19w 0dJeanty Weight Calculation: EFW 279g 72%Hadlock EFW (lb,oz) 0 lb 10oz EFW by Hadlock(HWC-WV-CV-FL) EFW discordance 4.9% Head / Face / Neck Biometry: Prec[employer] Products Installer 7.1mm CM 2.6mm Nasal bone 5.9mm Fetus 1: ANATOMY ----- The following structures appear normal: Head / Neck Cranium. Head size. Head shape.Lateral ventricles. Choroid plexus. Midline falx. Cavum septi pellucidi.Cerebellum. Cisterna magna. Parenchyma. Thalami. Vermis. Neck. Nuchal fold. Face Lips. Profile. Nose. Maxilla.Mandible. Orbits. Lens. Heart / Thorax 4-chamber view. RVOT view. LVOT view.3-vessel view. 1-lyamom-avesuqd view. Situs. Aortic arch view. Bicavalview. Ductal [...] 4-chamber view. RVOT view. LVOT view.3-vessel view. 6-lkpyub-ekajltv view. Situs. Aortic arch view. Bicavalview. Ductal [...] . She had a previous consultation with [facility] on 04/22/24. I discussed the findings on today's ultrasound with the patient. Ireviewed the limitations of ultrasound both in detecting aneuploidy andstructural abnormalities. Ultrasound can routinely detect 80-90% of structural abnormalities. She opted not todo aneuploidy screening or testing. Serial ultrasounds for growth every 4 weeks are recommended, andthese can be done through radiology in [place]. If complications or USabnormalities arise, she should be re-referred to [facility] for follow up. BPP weekly at 36 [...] long and closed. us Josue Pace MD [facility] US ORDERABLES Edit ed Result - Final * HIV Antigen Antibody Combo (06/23/2021 10:29 AM CDT) HIV Antigen Antibody Combo Nonreactive Nonreactive 06/23/2021 9:18 PM CDT [facility] Comment:HIV-1 p24 Ag & HIV-1 /HIV-2 Ab Not Detected Blood BLOOD SPECIMEN / Unknown Venipuncture / Unknown 06/23/2021 10:29 AM CDT 06/23/2021 10:30 AM CDT Comfort Louise MD LAB - BLOOD ORDERABL ES Final Result [facility] Special[facility] Core Lab [address] [facility], [id number] [address], [facility] [phone] * Hepatitis C antibody (06/23/2021 10:29 AM CDT) Hepatitis C Antibody Nonreactive Nonreactive 06/23/2021 9:18 PM CDT [facility] Blood BLOOD SPECIMEN / Unknown Venipuncture / Unknown 06/23/2021 10:29 AM CDT 06/23/2021 10:30 AM CDT Narrative [facility] - 06/23/2021 9:18 PM CDT Assay performance characteristics have not been established for newborns, infants, and children. Comfort Louise MD LAB - BLOOD ORDERABL ES Final Result [facility] Special[facility] Core Lab [address] [facility], [address] [address], [facility] [phone] * Pap imaged thin layer screen reflex to HPV if ASCUS - recommend age 25 - 29 (06/23/2021 9:53 AM CDT) Interpretation Negative for Intraepithelial Lesion or Malignancy (NILM) 06/27/2021 12:39 PM CDT [facility] Specimen Adequacy Satisfactory for evaluation, endocervical/vaz sformation zone component absent 06/27/2021 12:39 PM CDT [facility] Clinical Information 06/27/2021 12:39 PM CDT [facility] LMP/Menopause Date 03/09/2021 06/27/2021 12:39 PM CDT [facility] Reflex Testing Yes if ASCUS 06/27/20 12:39 PM CDT [facility] Previous Abnormal? No 06/27/2021 12:39 PM CDT [facility] Performing Labs The technical component of this testing was completed at [facility] 06/27/2021 12:39 PM CDT [facility] Brushing CERVIX UTERI STRUCTURE / Unknown 06/23/2021 9:53 AM CDT 06/23/2021 10:44 AM CDT Comment:Pap imaged thin laye r screen reflex to HPV if ASCUS - recommend age 25 - 29Answer REQUIRED pap questions below:LMP (date): Patient's last menstrual period was 03/09/2021 (exact date).PAP SOURCE: Cervical - EndocervicalPREVIOUS PAP RESULTS: No results found for: PAPPERTINENT CLINICAL HISTORY: [facility] Paul Louise MD LAB - CARLOS jara Result [facility] [address] [place] [address], [facility] [phone] from Last 3 Months or Most Recently Relevant to Health Maintenance Insurance [employer] [place] [employer] [facility] Address: [address] [address] [place] Care Teams Shading Painter Relationship Specialty Start Date End Date No Ref-Primary, Physician PCP - General 09/19/19 Paulino Barker MD [address] [place] [address] Assigned PCP 08/25/21
--- OUTSIDE RECORDS SUMMARY | 2024-08-02 19:48 | XMS_ITS | Referral Summary ---
Author Organization [place] Address [address] [place] [address] Care Team Providers Care Blast Furnace Checker Name Role Phone No Ref-Primary, Physician Primary Care Provider Paulino Barker MD Unavailable [phone] Encounters Date Type Department Care Team Description 05/27/2024 Travel 05/27/2024 10:45 AM CDT Office Visit [facility] [address] [facility] [address] [place] [address] Josue Pace MD Dichorionic diamniotic twin in second trimester (Primary Dx) 05/27/2024 9:10 AM CDT - 05/27/2024 11:59 PM CDT Hospital Encounter [facility] [address] [facility] [address] [place] [address] Josue Pace MD Dichorionic diamniotic twin in first trimester Discharge Disposition: Home or Self Care 05/22/2024 Travel from Last 3 Months Allergies Active Allergy [...] (154 lb 14.4 oz) 09/06/2021 1:15 PM STATION ENGINEER MAIN LINE Height 166.4 cm (5' 5.5) 07/21/2021 9:49 [...] to Health Maintenance Results * MFM Twins Comprehensive (05/27/2024 10:48 AM CDT) Anatomical Region [...] ? Study Date: ??05/27/2024 9:22am Pat. NO: ??[id number] ?Referring ??MD: BRAD JUDI Site: ? Senior Foreman: Ramin Gillette RDMS : ??1990 ?Age: ?? [...] ?0 lb 9 ?oz EFW by ?Hadlock (YEI-UJ-SS-FL) EFW discordance ?4.9 ? % Head / Face / Neck Biometry: Oil Treater ?5.5 ? mm CM ? 4.1 ? mm Nasal bone ? 5.7 ?mm Fetus 2: BIOMETRY ----- BPD ? 45.8 ?mm ? 19w 6d ?Wojciech HASSAN ? 57.5 ?mm ? 18w 6d ?Nicolaides [...] lb 10 ? oz EFW by ?Hadlock (YYV-FB-XR-FL) EFW discordance ?4.9 ? % Head / Face / Neck Biometry: Oil Treater ?7.1 ? mm CM ? 2.6 ? [...] view. RVOT view. LVOT view. 3-vessel view. 2-jeckxd-fdfhfug view. Situs. Aortic arch view. Bicaval view. [...] view. RVOT view. LVOT view. 3-vessel view. 5-pqfbuf-vjmlpmm view. Situs. Aortic arch view. Bicaval view. [...] . She had a previous consultation with [facility] on 04/22/24. I discussed the findings on today's ultrasound with the patient. I reviewed the limitations of ultrasound both in detecting aneuploidy and structural abnormalities. Ultrasound can routinely detect 80-90% of structural abnormalities. She opted not to do aneuploidy screening or testing. Serial ultrasounds for growth every 4 weeks are recommended, and these can be done through radiology in [place]. If complications or US abnormalities arise, she should be re-referred to [facility] for follow up. BPP weekly [...] CRANE Study Date: 05/27/2024 9:22am Pat. NO: [id number] Referring MD: BRAD LAU Site: Senior Foreman: Ramin Gillette RDMS : 1990 Age: 33 [...] EFW (lb,oz) 0 lb 9oz EFW by Hadlock(LPG-LI-YN-FL) EFW discordance 4.9% Head / Face / Neck Biometry: Oil Treater 5.5mm CM 4.1mm Nasal bone 5.7mm Fetus 2: BIOMETRY ----- BPD 45.8mm 19w 6dHadlock OFD 57.5mm 18w 6dNicolaides HC 165.9mm 19w 2dHadlock Cerebellum tr 18.7mm 18w 2dNicolaides Nuchal fold 3.2mm AC 144.5mm 19w 5d 80%Hadlock Femur 27.6mm 18w 3dHadlock Humerus 27.9mm 19w 0dJeanty Weight Calculation: EFW 279g 72%Hadlock EFW (lb,oz) 0 lb 10oz EFW by Hadlock(KHT-JC-LN-FL) EFW discordance 4.9% Head / Face / Neck Biometry: Oil Treater 7.1mm CM 2.6mm Nasal bone 5.9mm Fetus 1: ANATOMY ----- The following structures appear normal: Head / Neck Cranium. Head size. Head shape.Lateral ventricles. Choroid plexus. Midline falx. Cavum septi pellucidi.Cerebellum. Cisterna magna. Parenchyma. Thalami. Vermis. Neck. Nuchal fold. Face Lips. Profile. Nose. Maxilla.Mandible. Orbits. Lens. Heart / Thorax 4-chamber view. RVOT view. LVOT view.3-vessel view. 9-yeqegn-vsmkfjq view. Situs. Aortic arch view. Bicavalview. Ductal [...] 4-chamber view. RVOT view. LVOT view.3-vessel view. 2-kthgqx-qbgaiiu view. Situs. Aortic arch view. Bicavalview. Ductal [...] . She had a previous consultation with [facility] on 04/22/24. I discussed the findings on today's ultrasound with the patient. Ireviewed the limitations of ultrasound both in detecting aneuploidy andstructural abnormalities. Ultrasound can routinely detect 80-90% of structural abnormalities. She opted not todo aneuploidy screening or testing. Serial ultrasounds for growth every 4 weeks are recommended, andthese can be done through radiology in [place]. If complications or USabnormalities arise, she should be re-referred to [facility] for follow up. BPP weekly [...] Josue Pace MD [facility] US ORDERABLES Edit ed Result - Final * HIV Antigen Antibody Combo (06/23/2021 10:29 AM CDT) Pathologist [facility] HIV Antigen Antibody Combo Nonreactive Nonreactive 06/23/2021 9:18 PM CDT [facility] Comment:HIV-1 p24 Ag & HIV-1 /HIV-2 Ab Not Detected Blood BLOOD SPECIMEN / Unknown Venipuncture / Unknown 06/23/2021 10:29 AM CDT 06/23/2021 10:30 AM CDT Comfort Louise MD LAB - BLOOD ORDERABL ES Final Result [facility] Special[facility] Core Lab [address] [facility], [address] [address], [facility] [phone] * Hepatitis C antibody (06/23/2021 10:29 AM CDT) [facility] Hepatitis C Antibody Nonreactive Nonreactive 06/23/2021 9:18 PM CDT [facility] Blood BLOOD SPECIMEN / Unknown Venipuncture / Unknown 06/23/2021 10:29 AM CDT 06/23/2021 10:30 AM CDT Narrative [facility] - 06/23/2021 9:18 PM CDT Assay performance characteristics have not been established for newborns, infants, and children. Comfort Louise MD LAB - BLOOD ORDERABL ES Final Result [facility] Special[facility] [address] [facility], [address] [address], [facility] [phone] * Pap imaged thin layer screen reflex to HPV if ASCUS - recommend age 25 - 29 (06/23/2021 9:53 AM CDT) Pathologist [facility] Interpretation Negative for Intraepithelial Lesion or Malignancy (NILM) 06/27/2021 12:39 PM CDT [facility] Specimen Adequacy Satisfactory for evaluation, endocervical/vaz sformation zone component absent 06/27/2021 12:39 PM CDT [facility] Clinical Information 06/27/2021 12:39 PM CDT [facility] LMP/Menopause Date 03/09/2021 06/27/2021 12:39 PM CDT [facility] Reflex Testing Yes if ASCUS 06/27/20 12:39 PM CDT [facility] Previous Abnormal? No 06/27/2021 12:39 PM CDT [facility] Performing Labs The technical component of this testing was completed at [facility] 06/27/2021 12:39 PM CDT [facility] Brushing CERVIX UTERI STRUCTURE / Unknown 06/23/2021 9:53 AM CDT 06/23/2021 10:44 AM CDT Comment:Pap imaged thin laye r screen reflex to HPV if ASCUS - recommend age 25 - 29Answer REQUIRED pap questions below:LMP (date): Patient's last menstrual period was 03/09/2021 (exact date).PAP SOURCE: Cervical - EndocervicalPREVIOUS PAP RESULTS: No results found for: PAPPERTINENT CLINICAL HISTORY: Comfort Louise MD LAB - CARLOS jara Result [facility] [address] [place] [address], [facility] [phone] from Last 3 Months or Most Recently Relevant to Health Maintenance Insurance [employer] [place] [id number] [place] Care Teams Blast Furnace Checker Relationship Specialty Start Date End Date No Ref-Primary, Physician PCP - General 09/19/19 Paulino Barker MD [address] [address] Assigned PCP 08/25/21
--- OUTSIDE RECORDS SUMMARY | 2024-08-02 19:48 | XMS_ITS | Encounter Summary ---
Author Organization [place] Address [address] [place] [address] Care Team Providers Care Sale Professional Digital Marketing Name Role Phone No Ref-Primary, Physician Primary Care Provider Comfort Louise MD Unavailable [phone] Gretta Resendez MD Unavailable [phone] Paulino Barker MD Unavailable Chuckie Perry MD Unavailable Encounter Details Date Type Department Care Team (Late st Contact Info) Description 06/10/2021 MyC Medical Advice [facility] [address] [place] [phone] Comfort Louise MD [address] [place] [address] Social History Tobacco Use Types [...] Total Score: 3 09/19/19 20 10:37 AM CONTROL CLERK HEAD documented as of this encounter Care Teams Sale Professional Digital Marketing Relationship Specialty Start Date End Date No Ref-Primary, Physician PCP - General 09/19/19 Comfort Louise MD [address] [place] [address] Assigned OBGYN Provider 06/26/21 Gretta Resendez MD [address] [place] [address] Assigned OBGYN Provider 07/24/21 5 3 Paulino Barker MD [address] [address] Assigned PCP 08/25/21 Chuckie Perry MD [address] [place] [address] Assigned OBGYN Provider 01/20/23 documented as of this encounter
--- OUTSIDE RECORDS SUMMARY | 2024-08-02 19:48 | XMS_ITS | Encounter Summary ---
Author Organization [facility] Address [address] [place] [address] Care Team Providers Care Food Preparation Kitchen Aide Name Role Phone No Ref-Primary, Physician Primary Care Provider Comfort Louise MD Unavailable [phone] Gretta Resendez MD Unavailable [phone] Paulino Barker MD Unavailable [phone] Chuckie Perry MD Unavailable Encounter Details Date Type Department Care Team (Late st Contact Info) Description 06/14/2021 MyC Medical Advice [facility] [address] [place] [phone] Comfort Louise MD [address] [place] [address] Social History Tobacco Use Types [...] Total Score: 3 09/19/19 20 10:37 AM WIRELESS ARCHITECT documented as of this encounter Care Teams Food Preparation Kitchen Aide Relationship Specialty Start Date End Date No Ref-Primary, Physician PCP - General 09/19/19 Comfort Louise MD [address] [place] [address] Assigned OBGYN Provider 06/26/21 Gretta Resendez MD [address] [place] [address] Assigned OBGYN Provider 07/24/21 5 3 Paulino Barker MD [address] [address] Assigned PCP 08/25/21 Chuckie Perry MD [address] [place] [address] Assigned OBGYN Provider 01/20/23 documented as of this encounter
--- OUTSIDE RECORDS SUMMARY | 2024-08-02 19:48 | XMS_ITS | Encounter Summary ---
Author Organization [facility] Address [address] [place] [address] Care Team Providers Care Neonatal Pediatric Nurse Name Role Phone No Ref-Primary, Physician Primary Care Provider Comfort Louise MD Unavailable [phone] Gretta Resendez MD Unavailable [phone] Paulino Barker MD Unavailable [phone] Chuckie Perry MD Unavailable Encounter Details Date Type Department Care Team (Late st Contact Info) Description 07/18/2021 MyC Medical Advice [facility] [address] [place] [address] Gretta Resendez MD [address] [place], [place] [address] Social History Tobacco Use Types Packs/Day Years [...] Total Score: 3 09/19/19 20 10:37 AM RETURNED TELEPHONE EQUIPMENT APPRAISER documented as of this encounter Care Teams Neonatal Pediatric Nurse Relationship Specialty Start Date End Date No Ref-Primary, Physician PCP - General 09/19/19 Comfort Louise MD [address] [place] [address] Assigned OBGYN Provider 06/26/21 Gretta Resendez MD [address] [place] [address] Assigned OBGYN Provider 07/24/21 3 Paulino Barker MD [address] [address] Assigned PCP 08/25/21 Chuckie Perry MD [address] [place] [address] Assigned OBGYN Provider 01/20/23 documented as of this encounter
--- OUTSIDE RECORDS SUMMARY | 2024-08-02 19:48 | XMS_ITS | Encounter Summary ---
Author Organization [facility] Address [address] [place] [address] Care Team Providers Care Retail Area Manager Name Role Phone No Ref-Primary, Physician Primary Care Provider Comfort Louise MD Unavailable + [phone] Gretta Resendez MD Unavailable [phone] Paulino Barker MD Unavailable [phone] Chuckie Perry MD Unavailable Encounter Details Date Type Department Care Team (Late st Contact Info) Description 07/22/2021 MyC Medical Advice [facility] [address] [place] [address] Gretta Resendez MD [address] [place], [place] [address] Social History Tobacco Use Types Packs/Day Years [...] COVID-19? 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 encounter Plan of Treatment Not on file documented as of this encounter Visit Diagnoses Not on filedocumented in this encounter Additional Health Concerns Assessment Noted Time PHQ-9 Depression Total Score: 3 09/19/19 20 10:37 AM RAIL CAR REPAIRMAN documented as of this encounter Care Teams Retail Area Manager Relationship Specialty Start Date End Date No Ref-Primary, Physician PCP - General 09/19/19 Comfort Louise MD [address] [place] [address] Assigned OBGYN Provider 06/26/21 Gretta Resendez MD [address] [place] [address] Assigned OBGYN Provider 07/24/21 3 Paulino Barker MD [address] [address] Assigned PCP 08/25/21 Chuckie Perry MD [address] [place] [address] Assigned OBGYN Provider 01/20/23 documented as of this encounter
--- OUTSIDE RECORDS SUMMARY | 2024-08-02 19:48 | XMS_ITS | Encounter Summary ---
Author Organization [facility] Address [address] [place] [address] Care Team Providers Care Senior Media Buyer Name Role Phone No Ref-Primary, Physician Primary Care Provider Paulino Barker MD Unavailable [phone] Encounter Details Date Type Department Care Team [...] Total Score: 3 09/19/19 20 10:37 AM RIGGER HELPER documented as of this encounter Care Teams Senior Media Buyer Relationship Specialty Start Date End Date No Ref-Primary, Physician PCP - General 09/19/19 Paulino Barker MD [address] [address] Assigned PCP 08/25/21 documented as of this encounter
== END 2024-07-30 09:04 | disposition home or self-care (01) ==
LOC: NFLDREF 08-02 19:47
PROVIDERS: PCP Advanced Practice Midwife; Referring Provider Advanced Practice Midwife; Visit Provider Obstetrics & Gynecology
DX: O30.003 Twin pregnancy, unspecified number of placenta and unspecified number of amniotic sacs, third trimester (principal); Z3A.28 28 weeks gestation of pregnancy
CPT/HCPCS: 84443; 86592

== ENCOUNTER 2024-07-30 09:06 | Outpatient (CLI) | payer OTHER, BC, SELFPAY ==
--- NOTE | 2024-07-30 09:15 | CRLHL7_ITS ---
For Patients: As a result of the Century Cures Act, medical imaging exams and procedure reports are released immediately into your electronic medical record. You may view this report before your referring provider. If you have questions, please contact your health care provider. HISTORY: Growth of diamniotic dichorionic twins. COMPARISON: Ob ultrasound from 07/04/2024. TECHNIQUE: Ultrasound examination of the is performed with transabdominal technique. FINDINGS: This is a twin intrauterine gestation. The cervix can not be clearly seen because of low engagement of twin A`s head. Fetus A is seen in cephalic presentation with regular cardiac activity at 139 beats per minute. The placenta is posterior and is free of the cervical os. The placental grade is 0 and the amniotic fluid volume is normal. Single deepest vertical pocket: 3.9 cm. Fetus A BPD: 7.1 cm 28 weeks 5 days HC: 25.8 cm 28 weeks 0 days AC: 23.5 cm 27 weeks 6 days. Forty-first percentile. FL: 5.2 cm 27 weeks 4 days The estimated age by ultrasound is 28 weeks 0 days, with an estimated date of delivery of 10/22/2024. This correlates well with the clinical age of 27 weeks 6 days. The ultrasound ratios are normal. The estimated weight of 1100 grams is at the 35th percentile based on the clinical dates. This compares to the 56th percentile on the previous study. Fetus B is seen in breech presentation with regular cardiac activity at 147 beats per minute. The placenta is posterior and is free of the cervical os. The placental grade is 0 and the amniotic fluid volume is normal. Single deepest vertical pocket: 5.3 cm. Fetus B BPD: 7.5 cm 30 weeks 0 days HC: 27.1 cm 29 weeks 4 days AC: 24.5 cm 28 weeks 5 days. Seventy-first percentile FL: 5.3 cm 27 weeks 5 days The estimated age by ultrasound is 29 weeks 0 days, with an estimated date of delivery of 10/15/2024. This correlates well with the clinical age of 27 weeks 6 days. The ultrasound ratios are normal. The estimated weight of 1300 grams is at the 66th percentile based on the clinical dates. This compares to the 95th percentile on the previous study. Fetus A has normal appearance of the bladder, stomach, kidneys. Fetus B has normal appearance of the bladder, stomach, and kidneys. IMPRESSION: 1. Twin intrauterine gestation 2. Fetus A in cephalic presentation with regular cardiac activity. 3. Fetus B in breech presentation with regular cardiac activity. 4. Estimated gestational age is 28 weeks 0 days for fetus A. 5. Estimated gestational age is 29 weeks 0 days for fetus B. 6. There has been a decrease in growth rate for both gestations. 7. Fetus A estimated weight of 1100 grams is at the 35th percentile based on the clinical dates. This compares to the 56th percentile on the previous study. 8. Fetus B estimated weight of 1300 grams is at the 66th percentile based on the clinical dates. This compares to the 95th percentile on the previous study. Dictated by Jorge Hyatt MD @ 07/30/2024 11:22:13 PM (Electronically Signed)
== END 2024-07-30 09:07 | disposition home or self-care (01) ==
LOC: US 09:08
PROVIDERS: PCP Advanced Practice Midwife; Visit Provider Obstetrics & Gynecology
DX: O30.043 Twin pregnancy, dichorionic/diamniotic, third trimester (principal); Z3A.28 28 weeks gestation of pregnancy
CPT/HCPCS: 76816

== ENCOUNTER 2024-08-20 17:08 | Outpatient (CLI) | payer OTHER, BC, SELFPAY ==
[2024-08-20] VITALS (28 sets, daily range): BP systolic 113; BP diastolic 64; PULSE 76–109; RESP 16; TEMP 36.8; O2SAT 93–98
--- OUTSIDE RECORDS SUMMARY | 2024-08-20 17:11 | XMS_ITS | Encounter Summary ---
Author Organization [facility] Address [address] [place] [address] Care Team Providers Care Gas Plant Operator Name Role Phone No Ref-Primary, Physician Primary Care Provider Comfort Louise MD Unavailable [phone] Gretta Resendez MD Unavailable [phone] Paulino Barker MD Unavailable [phone] Chcukie Perry MD Unavailable [phone] Reason for Visit * Reason Onset Date Comments Results 06/24/2021 Encounter Details Date Type Department Care Team (Late st Contact Info) Description 06/24/2021 [facility] [place] [facility] [address] [place] [address] Comfort Louise MD [address] [place] [address] Results Social History Tobacco Use Types Packs/Day [...] Total Score: 3 09/19/19 20 10:37 AM COLLAR FELLER documented as of this encounter Care Teams Gas Plant Operator Relationship Specialty Start Date End Date No Ref-Primary, Physician PCP - General 09/19/19 Comfort Louise MD [address] [place] [address] Assigned OBGYN Provider 06/26/21 Gretta Resenedz MD [address] [place] [address] Assigned OBGYN Provider 07/24/21 3 Paulino Barker MD [address] [address] Assigned PCP 08/25/21 Chuckie Perry MD [address] [place] [address] Assigned OBGYN Provider 01/20/23 documented as of this encounter
--- OUTSIDE RECORDS SUMMARY | 2024-08-20 17:11 | XMS_ITS | Referral Summary ---
Author Organization [facility] Address [address] [place] [address] Care Team Providers Care Completion Manager Name Role Phone No Ref-Primary, Physician Primary Care Provider Paulino Barker MD Unavailable [phone] Encounters Date Type Department Care Team Description 05/27/2024 Travel 05/27/2024 10:45 AM CDT Office Visit [facility] [address] [place] [address] Josue Pace MD Dichorionic diamniotic twin in second trimester (Primary Dx) 05/27/2024 9:10 AM CDT - 05/27/2024 11:59 PM CDT Hospital Encounter [facility] [address] [place] [address] Josue Pace MD Dichorionic diamniotic twin in [...] PF 07/21/2021, 06/04/2020,07/01/2019 MMR 01/22/1997,02/01/1993 Meningococcal ACWY (Menactra ) 04/18/2006 Poliovirus, inactivated (IPV) 01/22/1997 ,04/05/1993,01/21/1992,1991 TDAP [...] 75 05/27/2024 10:48 AM CDT Temperature 36.9 C (98.5 F) 02/15/2016 6:32 PM CDT Respiratory Rate 18 05/27/2024 10:4 8 AM CDT Oxygen Saturation 100% 05/27/2024 10: 48 AM CDT Inhaled Oxygen Concentration - - Weight 70.3 kg (154 lb 14.4 oz) 09/06/2021 1:15 PM TRANSPLANT NURSE PRACTITIONER Height 166.4 cm (5' 5.5) 07/21/2021 9:49 [...] and closed. Narrative 05/27/2024 11:16 AM CDT Comprehensive ----- Pat. Name: AMARIS CRANE Study Date: 05/27/2024 9:22am Pat. NO: [id number] Referring MD: BRAD LAU Site: Craps Manager: Ramin Gillette RDMS : 1990 Age: 33 ----- INDICATION ----- Dichorionic, Diamniotic Twin gestation. History of gestational hypertension. METHOD ----- Transabdominal ultrasound examination. View: Sufficient. ----- Twin . Number of fetuses: 2. Dichorionic-diamniotic DATING ----- Date Details Gest. age MEAGAN LMP 01/06/2024 20 w + 2 d 10/12/2024 Previous U/S 03/07/2024 GA, GA 7 w + 1 d 18 w + 5 d 10/23/2024 U/S Fetus 1 05/27/2024 based upon AC, BPD, Femur, HC 19 w + 0 d 10/21/2024 U/S Fetus 2 based upon AC, BPD, Femur, HC 19 w + 2 d 10/19/2024 Assigned dating based on ultrasound (GA), selected on 05/27/2024 18 w + 5 d 10/23/2024 Fetus 1: [...] 7.3 cm Fetus 1: BIOMETRY ----- BPD 43.0 mm 19w 0d Hadlock OFD 56.6 mm 18w 5d Nicolaides HC 161.1 mm 18w 6d Hadlock Cerebellum tr 19.1 mm 18w 4d Nicolaides Nuchal fold 3.0 mm AC 136.6 mm 19w 1d 60% Hadlock Femur 28.5 mm 18w 5d Hadlock Humerus 29.0 mm 19w 3d Bhavana Weight Calculation: EFW 265 g 57% Hadlock EFW (lb,oz) 0 lb 9 oz EFW by Hadlock ([id number]) EFW discordance 4.9 % Head / Face / Neck Biometry: Carrier Packer 5.5 mm CM 4.1 mm Nasal bone 5.7 mm Fetus 2: BIOMETRY ----- BPD 45.8 mm 19w 6d Hadlock OFD 57.5 mm 18w 6d Nicolaides HC 165.9 mm 19w 2d Hadlock Cerebellum tr 18.7 mm 18w 2d Nicolaides Nuchal fold 3.2 mm AC 144.5 mm 19w 5d 80% Hadlock Femur 27.6 mm 18w 3d Hadlock Humerus 27.9 mm 19w 0d Bhavana Weight Calculation: EFW 279 g 72% Hadlock EFW (lb,oz) 0 lb 10 oz EFW by Hadlock ([id number]) EFW discordance 4.9 % Head / Face / Neck Biometry: Carrier Packer 7.1 mm CM 2.6 mm Nasal bone 5.9 mm Fetus 1: ANATOMY ----- The following structures appear normal: Head / Neck Cranium. Head size. Head shape. Lateral ventricles. Choroid plexus. Midline falx. Cavum septi pellucidi. Cerebellum. Cisterna magna. Parenchyma. Thalami. Vermis. Neck. Nuchal fold. Face Lips. Profile. Nose. Maxilla. Mandible. Orbits. Lens. Heart / Thorax 4-chamber view. RVOT view. LVOT view. 3-vessel view. 1-cyvmhv-kdtzfjh view. Situs. Aortic arch view. Bicaval view. Ductal arch view. Superior vena cava. Inferior vena cava. Cardiac position. Cardiac size. Cardiac rhythm. Right lung. Left lung. Diaphragm. Abdomen Abdom. wall. Cord insertion. Stomach. Kidneys. Bladder. Liver. Bowel. Genitals. Spine Cervical spine. Thoracic spine. Lumbar spine. Sacral spine. Extremities / Skeleton Arms. Right arm. Right hand. Left arm. Left hand. Legs. Right leg. Right foot. Left leg. Left foot. Fetus 2: ANATOMY ----- The following structures appear normal: Head / Neck Cranium. Head size. Head shape. Lateral ventricles. Choroid plexus. Midline falx. Cavum septi pellucidi. Cerebellum. Cisterna magna. Parenchyma. Thalami. Vermis. Neck. Nuchal fold. Face Lips. Profile. Nose. Maxilla. Mandible. Orbits. Lens. Heart / Thorax 4-chamber view. RVOT view. LVOT view. 3-vessel view. 7-foytfe-shsmgwl view. Situs. Aortic arch view. Bicaval view. Ductal arch view. Superior vena cava. Inferior vena cava. Cardiac position. Cardiac size. Right lung. Left lung. Diaphragm. Abdomen Abdom. wall. Cord insertion. Stomach. Kidneys. Bladder. Liver. Bowel. Genitals. Spine Cervical spine. Thoracic spine. Lumbar spine. Sacral spine. Extremities / Skeleton Arms. Right hand. Left hand. Legs. Right foot. Left foot. MATERNAL STRUCTURES ----- Cervix Visualized Appearance: Appears Closed Approach - Transabdominal: Cervical length 39.2 mm Right Ovary Visualized Left Ovary Visualized RECOMMENDATION ----- Thank-you for referring your patient for a comprehensive ultrasound due to dichorionic diamniotic twin . She had a previous consultation with [facility] on 04/22/24. I discussed the findings on today's ultrasound with the patient. I reviewed the limitations of ultrasound both in detecting aneuploidy and structural abnormalities. Ultrasound can routinely detect 80-90% of structural abnormalities. She opted not to do aneuploidy screening or testing. Serial ultrasounds for growth every 4 weeks are recommended, and these can be done through radiology in [place]. If complications or US abnormalities arise, she should be re-referred to [facility] for follow up. BPP weekly at 36 [...] CRANE Study Date: 05/27/2024 9:22am Pat. NO: [id number] Referring MD: BRAD LAU Site: Craps Manager: Ramin Gillette RDMS : 1990 Age: 33 ----- INDICATION ----- Dichorionic, Diamniotic Twin gestation. History of gestational hypertension. METHOD ----- Transabdominal ultrasound examination. View: Sufficient. ----- Twin . Number of fetuses: 2. Dichorionic-diamniotic DATING ----- DateDetailsGest. age MEAGNA LMP w + 2 d 10/12/2024 Previous U/S 03/07/2024 GA, GA7 w + 1 d18 w + 5 d 10/23/2024 U/S Fetus 1 05/27/2024 basedupon AC, BPD, Femur, HC 19w + 0 d 10/21/2024 /S Fetus 2based upon AC, BPD, Femur, HC19 [...] EFW (lb,oz) 0 lb 9oz EFW by Hadlock([id number]-FL) EFW discordance 4.9% Head / Face / Neck Biometry: Carrier Packer 5.5mm CM 4.1mm Nasal bone 5.7mm Fetus 2: BIOMETRY ----- BPD 45.8mm 19w 6dHadlock OFD 57.5mm 18w 6dNicolaides HC 165.9mm 19w 2dHadlock Cerebellum tr 18.7mm 18w 2dNicolaides Nuchal fold 3.2mm AC 144.5mm 19w 5d 80%Hadlock Femur 27.6mm 18w 3dHadlock Humerus 27.9mm 19w 0dJeanty Weight Calculation: EFW 279g 72%Hadlock EFW (lb,oz) 0 lb 10oz EFW by Hadlock([id number]) EFW discordance 4.9% Head / Face / Neck Biometry: Carrier Packer 7.1mm CM 2.6mm Nasal bone 5.9mm Fetus 1: ANATOMY ----- The following structures appear normal: Head / Neck Cranium. Head size. Head shape.Lateral ventricles. Choroid plexus. Midline falx. Cavum septi pellucidi.Cerebellum. Cisterna magna. Parenchyma. Thalami. Vermis. Neck. Nuchal fold. Face Lips. Profile. Nose. Maxilla.Mandible. Orbits. Lens. Heart / Thorax 4-chamber view. RVOT view. LVOT view.3-vessel view. 5-gdzzsu-xpznfre view. Situs. Aortic arch view. Bicavalview. Ductal [...] 4-chamber view. RVOT view. LVOT view.3-vessel view. 2-ddkxtz-cnchetn view. Situs. Aortic arch view. Bicavalview. Ductal [...] . She had a previous consultation with [facility] on 04/22/24. I discussed the findings on today's ultrasound with the patient. Ireviewed the limitations of ultrasound both in detecting aneuploidy andstructural abnormalities. Ultrasound can routinely detect 80-90% of structural abnormalities. She opted not todo aneuploidy screening or testing. Serial ultrasounds for growth every 4 weeks are recommended, andthese can be done through radiology in [place]. If complications or USabnormalities arise, she should be re-referred to [facility] for follow up. BPP weekly at 36 weeks also recommended. Return to primary provider for continued care. If you have questions regarding today's evaluation or if [facility], please contact the [facility]. [...] appears long and closed. Josue Pace MD [facility] ORDERABLES Edit ed Result - Final * HIV Antigen Antibody Combo (06/23/2021 10:29 AM CDT) Pathologist [facility] HIV Antigen Antibody Combo Nonreactive Nonreactive 06/23/2021 9:18 PM CDT [facility] Comment:HIV-1 p24 Ag & HIV-1 /HIV-2 Ab Not Detected Blood BLOOD SPECIMEN / Unknown Venipuncture / Unknown 06/23/2021 10:29 AM CDT 06/23/2021 10:30 AM CDT Comfort Louise MD LAB - BLOOD ORDERABL ES Final Result [facility] Specialty Core Lab [address] [facility], [address] [address], [facility] [phone] * Hepatitis C antibody (06/23/2021 10:29 AM CDT) [facility] Hepatitis C Antibody Nonreactive Nonreactive 06/23/2021 9:18 PM CDT [facility] Blood BLOOD SPECIMEN / Unknown Venipuncture / Unknown 06/23/2021 10:29 AM CDT 06/23/2021 10:30 AM CDT Narrative [facility] - 06/23/2021 9:18 PM CDT Assay performance characteristics have not been established for newborns, infants, and children. Comfort Louise MD LAB - BLOOD ORDERABL ES Final Result [facility] Specialty Core Lab [address] [facility], [address] [address], [facility] [phone] * Pap imaged thin layer screen reflex to HPV if ASCUS - recommend age 25 - 29 (06/23/2021 9:53 AM CDT) [facility] Interpretation Negative for Intraepithelial Lesion or Malignancy (NILM) 06/27/2021 12:39 PM CDT [facility] Specimen Adequacy Satisfactory for evaluation, endocervical/vaz sformation zone component absent 06/27/2021 12:39 PM CDT [facility] Clinical Information 06/27/2021 12:39 PM CDT [facility] LMP/Menopause Date 03/09/2021 06/27/2021 12:39 PM CDT [facility] Reflex Testing Yes if ASCUS 06/27/20 12:39 PM CDT [facility] Previous Abnormal? No 06/27/2021 12:39 PM CDT [facility] Performing Labs The technical component of this testing was completed at [facility] 06/27/2021 12:39 PM CDT [facility] Brushing CERVIX UTERI STRUCTURE / Unknown [...] Louise MD LAB - CARLOS jara Result [facility] [address] [place] [address], [place] [phone] from Last 3 Months or Most Recently Relevant to Health Maintenance Insurance [employer]) COMMERCIAL MEDICAID [place] [employer] [facility] [employer] MEDICAID [place] Care Teams Completion Manager Relationship Specialty Start Date End Date No Ref-Primary, Physician PCP - General 09/19/19 Paulino Barker MD [facility] [address] [place] [address] Assigned PCP 08/25/21
--- OUTSIDE RECORDS SUMMARY | 2024-08-20 17:11 | XMS_ITS | Encounter Summary ---
Author Organization [facility] Address [address] [place] [address] Care Team Providers Care Sports Analyst Name Role Phone No Ref-Primary, Physician Primary Care Provider Comfort Louise MD Unavailable Gretta Resendez MD Unavailable [phone] Paulino Barker MD Unavailable [phone] Chuckie Perry MD Unavailable [phone] Encounter Details Date Type Department Care Team (Late st Contact Info) Description 07/18/2021 [facility] Medical Advice [facility] [address] [place] [address] Gretta Resendez MD [address] [place], [place] [address] Social History Tobacco Use Types Packs/Day Years [...] Total Score: 3 09/19/19 20 10:37 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
--- OUTSIDE RECORDS SUMMARY | 2024-08-20 17:11 | XMS_ITS | Clinical Summary ---
Author Organization [facility] Address [address] [place] [address] Care Team Providers Care Certified Physician Assistant Name Role Phone No Ref-Primary, Physician Primary Care Provider Paulino Barker MD Unavailable [phone] Allergies Active Allergy Reactions Criticality Noted Date [...] Description 05/27/2024 10:45 AM CDT Office Visit [facility] [place] [address] [facility] [address] [place] [address] Josue Pace MD Dichorionic diamniotic twin in second trimester (Primary Dx) 05/27/2024 9:10 AM CDT - 05/27/2024 11:59 PM CDT Hospital Encounter [facility] [place] [address] [facility] [address] [place] [address] Josue Pace MD Dichorionic diamniotic [...] (154 lb 14.4 oz) 09/06/2021 1:15 PM SUGAR COATING HAND Height 166.4 cm (5' 5.5) 07/21/2021 9:49 [...] 11:16 AM CDT Comprehensive ----- Pat. Name: WALTER CRANE Study Date: 05/27/2024 9:22am Pat. NO: [id number] Referring MD: BRAD LAU Site: Storm Sash Maker: Ramin Gillette RDMS : 1990 Age: 33 [...] 0 lb 9 oz EFW by Hadlock ([id number]) EFW discordance 4.9 % Head / Face / Neck Biometry: Legal Instruments Examiner 5.5 mm CM 4.1 mm Nasal bone [...] 0 lb 10 oz EFW by Hadlock ([id number]) EFW discordance 4.9 % Head / Face / Neck Biometry: Legal Instruments Examiner 7.1 mm CM 2.6 mm Nasal bone 5.9 mm Fetus 1: ANATOMY ----- The following structures appear normal: Head / Neck Cranium. Head size. Head shape. Lateral ventricles. Choroid plexus. Midline falx. Cavum septi pellucidi. Cerebellum. Cisterna magna. Parenchyma. Thalami. Vermis. Neck. Nuchal fold. Face Lips. Profile. Nose. Maxilla. Mandible. Orbits. Lens. Heart / Thorax 4-chamber view. RVOT view. LVOT view. 3-vessel view. 1-kqmhqb-welltfq view. Situs. Aortic arch view. Bicaval view. [...] view. RVOT view. LVOT view. 3-vessel view. 2-bjuygx-ccizgaz view. Situs. Aortic arch view. Bicaval view. [...] . She had a previous consultation with [facility] on 04/22/24. I discussed the findings on today's ultrasound with the patient. I reviewed the limitations of ultrasound both in detecting aneuploidy and structural abnormalities. Ultrasound can routinely detect 80-90% of structural abnormalities. She opted not to do aneuploidy screening or testing. Serial ultrasounds for growth every 4 weeks are recommended, and these can be done through radiology in [place]. If complications or US abnormalities arise, she should be re-referred to [facility] for follow up. BPP weekly at [...] CRANE Study Date: 05/27/2024 9:22am Pat. NO: [id number] Referring MD: BRAD LAU Site: Storm Sash Maker: Ramin Gillette RDMS : 1990 Age: 33 [...] EFW (lb,oz) 0 lb 9oz EFW by Hadlock([id number]) EFW discordance 4.9% Head / Face / Neck Biometry: Legal Instruments Examiner 5.5mm CM 4.1mm Nasal bone 5.7mm Fetus 2: BIOMETRY ----- BPD 45.8mm 19w 6dHadlock OFD 57.5mm 18w 6dNicolaides HC 165.9mm 19w 2dHadlock Cerebellum tr 18.7mm 18w 2dNicolaides Nuchal fold 3.2mm AC 144.5mm 19w 5d 80%Hadlock Femur 27.6mm 18w 3dHadlock Humerus 27.9mm 19w 0dJeanty Weight Calculation: EFW 279g 72%Hadlock EFW (lb,oz) 0 lb 10oz EFW by Hadlock([id number]-PI-[id number]-FL) EFW discordance 4.9% Head / Face / Neck Biometry: Legal Instruments Examiner 7.1mm CM 2.6mm Nasal bone 5.9mm Fetus 1: ANATOMY ----- The following structures appear normal: Head / Neck Cranium. Head size. Head shape.Lateral ventricles. Choroid plexus. Midline falx. Cavum septi pellucidi.Cerebellum. Cisterna magna. Parenchyma. Thalami. Vermis. Neck. Nuchal fold. Face Lips. Profile. Nose. Maxilla.Mandible. Orbits. Lens. Heart / Thorax 4-chamber view. RVOT view. LVOT view.3-vessel view. 6-wcvysx-kxoqkaz view. Situs. Aortic arch view. Bicavalview. Ductal [...] 4-chamber view. RVOT view. LVOT view.3-vessel view. 8-adczcg-qbdwadx view. Situs. Aortic arch view. Bicavalview. Ductal [...] . She had a previous consultation with [facility] on 04/22/24. I discussed the findings on today's ultrasound with the patient. Ireviewed the limitations of ultrasound both in detecting aneuploidy andstructural abnormalities. Ultrasound can routinely detect 80-90% of structural abnormalities. She opted not todo aneuploidy screening or testing. Serial ultrasounds for growth every 4 weeks are recommended, andthese can be done through radiology in [place]. If complications or USabnormalities arise, she should be re-referred to [facility] for follow up. BPP weekly at [...] long and closed. us Josue Pace MD [facility] US ORDERABLES Edit ed Result - Final * HIV Antigen Antibody Combo (06/23/2021 10:29 AM CDT) HIV Antigen Antibody Combo Nonreactive Nonreactive 06/23/2021 9:18 PM CDT [facility] Comment:HIV-1 p24 Ag & HIV-1 /HIV-2 Ab Not Detected Blood BLOOD SPECIMEN / Unknown Venipuncture / Unknown 06/23/2021 10:29 AM CDT 06/23/2021 10:30 AM CDT Comfort Louise MD LAB - BLOOD ORDERABL ES Final Result [facility] Specialty Core Lab [address] [facility], [address] [place] [address], [facility] [phone] * Hepatitis C antibody (06/23/2021 10:29 AM CDT) Hepatitis C Antibody Nonreactive Nonreactive 06/23/2021 9:18 PM CDT [facility] Blood BLOOD SPECIMEN / Unknown Venipuncture / Unknown 06/23/2021 10:29 AM CDT 06/23/2021 10:30 AM CDT Narrative [facility] - 06/23/2021 9:18 PM CDT Assay performance characteristics have not been established for newborns, infants, and children. Comfort Louise MD LAB - BLOOD ORDERABL ES Final Result Performing Organization Address City/[facility]/ZIP Co de Phone Number [facility] Specialty Core Lab [address] [facility], [address] [place] [address], [facility] [phone] * Pap imaged thin layer screen reflex to HPV if ASCUS - recommend age 25 - 29 (06/23/2021 9:53 AM CDT) Interpretation Negative for Intraepithelial Lesion or Malignancy (NILM) 06/27/2021 12:39 PM CDT [facility] Specimen Adequacy Satisfactory for evaluation, endocervical/vaz sformation zone component absent 06/27/2021 12:39 PM CDT [facility] Clinical Information 06/27/2021 12:39 PM CDT [facility] LMP/Menopause Date 03/09/2021 06/27/2021 12:39 PM CDT [facility] Reflex Testing Yes if ASCUS 06/27/20 12:39 PM CDT [facility] Previous Abnormal? No 06/27/2021 12:39 PM CDT [facility] Performing Labs The technical component of this testing was completed at [facility] 06/27/2021 12:39 PM CDT [facility] Brushing CERVIX UTERI STRUCTURE / Unknown 06/23/2021 9:53 AM CDT 06/23/2021 10:44 AM CDT Comment:Pap imaged thin laye r screen reflex to HPV if ASCUS - recommend age 25 - 29Answer REQUIRED pap questions below:LMP (date): Patient's last menstrual period was 03/09/2021 (exact date).PAP SOURCE: Cervical - EndocervicalPREVIOUS PAP RESULTS: No results found for: PAPPERTINENT CLINICAL HISTORY: Davidserjio Louise MD LAB - CARLOS jara Result [facility] [address] [place] [address], [facility] [phone] from Last 3 Months or Most Recently Relevant to Health Maintenance Insurance [employer] [place] [address] [employer] [place] Care Teams Certified Physician Assistant Relationship Specialty Start Date End Date No Ref-Primary, Physician PCP - General 09/19/19 Paulino Barker MD [address] [address] Assigned PCP 08/25/21
--- OUTSIDE RECORDS SUMMARY | 2024-08-20 17:11 | XMS_ITS | Encounter Summary ---
Author Organization [facility] Address [address] [place] [address] Care Team Providers Care Green Lumber Grader Name Role Phone No Ref-Primary, Physician Primary Care Provider Comfort Louise MD Unavailable [phone] Gretta Resendez MD Unavailable [phone] Paulino Barker MD Unavailable Chuckie Perry MD Unavailable Encounter Details Date Type Department Care Team (Late st Contact Info) Description 07/22/2021 MyC Medical Advice [facility] [address] [place] [address] Gretta Resendez MD [address] [place], [place] [address] Social History Tobacco Use Types Packs/Day Years [...] COVID-19? 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 documented as of this encounter Plan of Treatment Not on file documented as of this encounter Visit Diagnoses Not on filedocumented in this encounter Additional Health Concerns Assessment Noted Time PHQ-9 Depression Total Score: 3 09/19/19 20 10:37 AM SELF DEFENSE INSTRUCTOR documented as of this encounter Care Teams Green Lumber Grader Relationship Specialty Start Date End Date No Ref-Primary, Physician PCP - General 09/19/19 Comfort Louise MD [address] [place] [address] Assigned OBGYN Provider 06/26/21 Gretta Resendez MD [address] [place] [address] Assigned OBGYN Provider 07/24/21 3 Paulino Barker MD [address] [address] Assigned PCP 08/25/21 Chuckie Perry MD [address] [place] [address] Assigned OBGYN Provider 01/20/23 documented as of this encounter
--- OUTSIDE RECORDS SUMMARY | 2024-08-20 17:11 | XMS_ITS | Encounter Summary ---
Author Organization [facility] Address [address] [place] [address] Care Team Providers Care Piston Maker Name Role Phone No Ref-Primary, Physician Primary Care Provider Gretta Resendez MD Unavailable [phone] Paulino Barker MD Unavailable [phone] Chuckie Perry MD Unavailable Encounter Details Date Type Department Care Team (Late st Contact Info) Description 07/26/2021 MyC Medical Advice [facility] [address] [place] [address] Gretta Resendez MD [address] [place], [place] [address] Social History Tobacco Use Types Packs/Day Years [...] COVID-19? No / Unsure 07/25/2021 9:32 AM DIRECTOR OF BLOOD documented as of this encounter Plan of Treatment Not on file documented as of this encounter Visit Diagnoses Not on filedocumented in this encounter Additional Health Concerns Assessment Noted Time PHQ-9 Depression Total Score: 3 09/19/19 10:37 AM DIRECTOR OF BLOOD documented as of this encounter Care Teams Piston Maker Relationship Specialty Start Date End Date No Ref-Primary, Physician PCP - General 09/19/19 Gretta Resendez MD [address] [place] [address] Assigned OBGYN Provider 07/24/21 3 Paulino Barker MD [address] [address] Assigned PCP 08/25/21 Chuckie Perry MD [address] [place] [address] Assigned OBGYN Provider 01/20/23 documented as of this encounter
--- OUTSIDE RECORDS SUMMARY | 2024-08-20 17:11 | XMS_ITS | Encounter Summary ---
Author Organization [facility] Address [address] [place] [address] Care Team Providers Care Service Transformer Repair Supervisor Name Role Phone No Ref-Primary, Physician Primary Care Provider Paulino Barker MD Unavailable [phone] Encounter Details Date Type Department Care Team [...] Total Score: 3 09/19/19 20 10:37 AM FLOW MANAGER documented as of this encounter Care Teams Service Transformer Repair Supervisor Relationship Specialty Start Date End Date No Ref-Primary, Physician PCP - General 09/19/19 Paulino Barker MD [address] [address] Assigned PCP 08/25/21 documented as of this encounter
--- OUTSIDE RECORDS SUMMARY | 2024-08-20 17:11 | XMS_ITS | Encounter Summary ---
Author Organization [facility] Address [address] [place] [address] Care Team Providers Care Steam Table Worker Name Role Phone No Ref-Primary, Physician Primary Care Provider Comfort Louise MD Unavailable [phone] Gretta Resendez MD Unavailable [phone] Paulino Barker MD Unavailable Chuckie Perry MD Unavailable Encounter Details Date Type Department Care Team (Late st Contact Info) Description 07/06/2021 [facility] Medical Advice [facility] [address] [place] [phone] Comfort Louise MD [address] [place] [address] Social History Tobacco Use Types [...] Total Score: 3 09/19/19 20 10:37 AM EXPERIENTIAL THERAPIST documented as of this encounter Care Teams Steam Table Worker Relationship Specialty Start Date End Date No Ref-Primary, Physician PCP - General 09/19/19 Comfort Louise MD [address] [place] [address] Assigned OBGYN Provider 06/26/21 Gretta Resendez MD [address] [place] [address] Assigned OBGYN Provider 07/24/21 3 Paulino Barker MD [address] [address] Assigned PCP 08/25/21 Chuckie Perry MD [address] [place] [address] Assigned OBGYN Provider 01/20/23 documented as of this encounter
--- OUTSIDE RECORDS SUMMARY | 2024-08-20 17:11 | XMS_ITS | Encounter Summary ---
Author Organization [facility] Address [address] [place] [address] Care Team Providers Care Logging Crew Foreman Name Role Phone No Ref-Primary, Physician Primary Care Provider Paulino Barker MD Unavailable [phone] Reason for Referral * Diagnostic Imaging Ultrasound (Routine) - Pending Review Specialty Diagnoses / Procedures Referred By Melaniac johnie Referred To Contact Radiology. Diagnoses Dichorionic diamniotic twin in first trimester Procedures MFM Twins Josue Miranda MD [address] [place] [address] Phone: tel: fax: Referral ID Status Reason Start Date Expiration Date V isits Requested Visits Authorized [id number] Pending Review 04/22/2024 04/22/2025 1 1 Reason for Visit * Diagnostic Imaging Ultrasound (Routine) - Pending Review Specialty Diagnoses / Procedures Referred By Ara jett Referred To Contact Radiology. Diagnoses Dichorionic diamniotic twin in first trimester Procedures MFM Twins Josue Miranda MD [address] [place] [address] Phone: tel: fax: Referral ID Status Reason Start Date Expiration Date V isits Requested Visits Authorized [id number] Pending Review 04/22/2024 04/22/2025 1 1 Encounter Details Date Type Department Care Team (Latest Contact Info) Description 05/27/2024 9:10 AM CDT - 05/27/2024 11:59 PM CDT Hospital Encounter [facility] [place] [address] [facility] [address] [place] [address] Josue Pace MD [address] [place] [address] Dichorionic diamniotic twin in first [...] CRANE Study Date: 05/27/2024 9:22am Pat. NO: [id number] Referring MD: BRAD LAU Site: Guest Service Manager: Ramin Gillette RDMS : 1990 Age: [...] 0 lb 9 oz EFW by Hadlock ([id number]) EFW discordance 4.9 % Head / Face / Neck Biometry: Nail Professional 5.5 mm CM 4.1 mm Nasal bone [...] 0 lb 10 oz EFW by Hadlock (SMS-[id number]-FL) EFW discordance 4.9 % Head / Face / Neck Biometry: Nail Professional 7.1 mm CM 2.6 mm Nasal bone 5.9 mm Fetus 1: ANATOMY ----- The following structures appear normal: Head / Neck Cranium. Head size. Head shape. Lateral ventricles. Choroid plexus. Midline falx. Cavum septi pellucidi. Cerebellum. Cisterna magna. Parenchyma. Thalami. Vermis. Neck. Nuchal fold. Face Lips. Profile. Nose. Maxilla. Mandible. Orbits. Lens. Heart / Thorax 4-chamber view. RVOT view. LVOT view. 3-vessel view. 9-vgyiio-kfaqvxo view. Situs. Aortic arch view. Bicaval view. [...] view. RVOT view. LVOT view. 3-vessel view. 4-ekrtqk-eswavnu view. Situs. Aortic arch view. Bicaval view. [...] these can be done through radiology in [place]. If complications or US abnormalities arise, she should be re-referred to [facility] for follow up. BPP weekly at [...] CRANE Study Date: 05/27/2024 9:22am Pat. NO: [id number] Referring MD: BRAD LAU Site: Guest Service Manager: Ramin Gillette RDMS : 1990 Age: [...] EFW (lb,oz) 0 lb 9oz EFW by Hadlock([id number]-FL) EFW discordance 4.9% Head / Face / Neck Biometry: Nail Professional 5.5mm CM 4.1mm Nasal bone 5.7mm Fetus 2: BIOMETRY ----- BPD 45.8mm 19w 6dHadlock OFD 57.5mm 18w 6dNicolaides HC 165.9mm 19w 2dHadlock Cerebellum tr 18.7mm 18w 2dNicolaides Nuchal fold 3.2mm AC 144.5mm 19w 5d 80%Hadlock Femur 27.6mm 18w 3dHadlock Humerus 27.9mm 19w 0dJeanty Weight Calculation: EFW 279g 72%Hadlock EFW (lb,oz) 0 lb 10oz EFW by Hadlock([id number]-FL) EFW discordance 4.9% Head / Face / Neck Biometry: Nail Professional 7.1mm CM 2.6mm Nasal bone 5.9mm Fetus 1: ANATOMY ----- The following structures appear normal: Head / Neck Cranium. Head size. Head shape.Lateral ventricles. Choroid plexus. Midline falx. Cavum septi pellucidi.Cerebellum. Cisterna magna. Parenchyma. Thalami. Vermis. Neck. Nuchal fold. Face Lips. Profile. Nose. Maxilla.Mandible. Orbits. Lens. Heart / Thorax 4-chamber view. RVOT view. LVOT view.3-vessel view. 9-nwsioh-bazvtrh view. Situs. Aortic arch view. Bicavalview. Ductal [...] 4-chamber view. RVOT view. LVOT view.3-vessel view. 9-aielwc-wobaxii view. Situs. Aortic arch view. Bicavalview. Ductal [...] . She had a previous consultation with [facility] on 04/22/24. I discussed the findings on today's ultrasound with the patient. Ireviewed the limitations of ultrasound both in detecting aneuploidy andstructural abnormalities. Ultrasound can routinely detect 80-90% of structural abnormalities. She opted not todo aneuploidy screening or testing. Serial ultrasounds for growth every 4 weeks are recommended, andthese can be done through radiology in [place]. If complications or USabnormalities arise, she should be re-referred to [facility] for follow up. BPP weekly at [...] long and closed. us Josue Pace MD [facility] US ORDERABLES Edit ed Result - Final documented in this encounter Visit Diagnoses Diagnosis Dichorionic diamniotic twin in first trimester Twin , antepartum documented in this encounter Additional Health Concerns Assessment Noted Time PHQ-9 Depression Total Score: 3 09/19/19 20 10:37 AM LOG FEEDER documented as of this encounter Care Teams Logging Crew Foreman Relationship Specialty Start Date End Date No Ref-Primary, Physician PCP - General 09/19/19 Paulino Barker MD [address] [address] Assigned PCP 08/25/21 documented as of this encounter
--- OUTSIDE RECORDS SUMMARY | 2024-08-20 17:11 | XMS_ITS | Encounter Summary ---
Author Organization [facility] Address [address] [place] [address] Care Team Providers Care Opening Machine Cleaner Name Role Phone No Ref-Primary, Physician Primary Care Provider Comfort Louise MD Unavailable [phone] Gretta Resendez MD Unavailable [phone] Paulino Barker MD Unavailable Chuckie Perry MD Unavailable Encounter Details Date Type Department Care Team (Late st Contact Info) Description 06/14/2021 MyC Medical Advice [facility] [address] [place] [phone] Comfort Louise MD [address] [place] [address] Social History Tobacco Use Types [...] Total Score: 3 09/19/19 20 10:37 AM BULL GANG SUPERVISOR documented as of this encounter Care Teams Opening Machine Cleaner Relationship Specialty Start Date End Date No Ref-Primary, Physician PCP - General 09/19/19 Comfort Louise MD [address] [place] [address] Assigned OBGYN Provider 06/26/21 Gretta Resendez MD [address] [place] [address] Assigned OBGYN Provider 07/24/21 5 3 Paulino Barker MD [address] [address] Assigned PCP 08/25/21 Chuckie Perry MD [address] [place] [address] Assigned OBGYN Provider 01/20/23 documented as of this encounter
--- OUTSIDE RECORDS SUMMARY | 2024-08-20 17:11 | XMS_ITS | Encounter Summary ---
Author Organization [facility] Address [address] [facility] [place] [address] Care Team Providers Care Entry Driver Operator Name Role Phone No Ref-Primary, Physician Primary Care Provider Paulino Barker MD Unavailable [phone] Reason for Visit * Reason Comments Ultrasound L2-di/di twins Encounter Details Date Type Department Care Team (Late st Contact Info) Description 05/27/2024 10:45 AM CDT Office Visit [facility] [place] [address] [facility] [address] [place] [address] Josue Pace MD [address] [facility] [address] [place] [address] Dichorionic diamniotic twin in second [...] Total Score: 3 09/19/19 20 10:37 AM BALL WINDER documented as of this encounter Care Teams Entry Driver Operator Relationship Specialty Start Date End Date No Ref-Primary, Physician PCP - General 09/19/19 Paulino Barker MD [address] [address] Assigned PCP 08/25/21 documented as of this encounter
--- OUTSIDE RECORDS SUMMARY | 2024-08-20 17:11 | XMS_ITS | Encounter Summary ---
Author Organization [facility] Address [address] [place] [address] Care Team Providers Care Impregnating Tank Operator Name Role Phone No Ref-Primary, Physician Primary Care Provider Paulino Barker MD Unavailable [phone] Encounter Details Date Type Department Care Team [...] Total Score: 3 09/19/19 20 10:37 AM PLASTIC FRAME INSERTER documented as of this encounter Care Teams Impregnating Tank Operator Relationship Specialty Start Date End Date No Ref-Primary, Physician PCP - General 09/19/19 Paulino Barker MD [address] [address] Assigned PCP 08/25/21 documented as of this encounter
--- OUTSIDE RECORDS SUMMARY | 2024-08-20 17:12 | XMS_ITS | Encounter Summary ---
Author Organization [facility] Address [address] [place] [address] Care Team Providers Care Bench Technician Name Role Phone No Ref-Primary, Physician Primary Care Provider Marlene Dolan MD Unavailable Comfort Louise MD Unavailable Gretta Resendez MD Unavailable [phone] Paulino Barker MD Unavailable [phone] Chuckie Perry MD Unavailable Encounter Details Date Type Department Care Team (Late st Contact Info) Description 11/07/2019 MyC Medical Advice [facility] [address] [place] [address] Marlene Dolan MD [address] [place] [address] Social History Tobacco Use Types Packs/Day Years [...] Total Score: 3 09/19/19 20 10:37 AM CARVING MACHINE OPERATOR documented as of this encounter Care Teams Bench Technician Relationship Specialty Start Date End Date No Ref-Primary, Physician PCP - General 09/19/19 Marlene Dolan MD [address] [address] Assigned OBGYN Provider 07/09/20 1 Comfort Louise MD [address] [place] [address] Assigned OBGYN Provider 06/26/21 Gretta Resendez MD [address] [place] [address] Assigned OBGYN Provider 07/24/21 3 Paulino Barker MD [address] [address] Assigned PCP 08/25/21 Chuckie Perry MD [address] [place] [address] Assigned OBGYN Provider 01/20/23 documented as of this encounter
--- OUTSIDE RECORDS SUMMARY | 2024-08-20 17:12 | XMS_ITS | Clinical Summary ---
Author Organization [facility] Address [place], [place] [address] Care Team Providers Care Brand Mgr Name Role Phone Rashad Knight MD Primary Care Provide r Allergies No known active allergies Medications Medication Sig Dispensed Refills Start Date End Date Status PNV [id number] tabletIndications:Encnt r for suprvsn of normal first [...] Comments Blood Pressure 118/74 09/16/2015 3:29 PM TERRAZZO INSTALLER Pulse 60 03/05/2012 4:28 PM CDT Temperature 36.6 C (97.8 F) 07/26/2009 2:56 PM TERRAZZO INSTALLER Respiratory Rate 12 03/05/2012 4:28 PM CDT [...] Negative Negative 03/14/2022 11:14 AM CDT [facility] TYPE 18 Negative Negative 03/14/2022 11:14 AM CDT [facility] OTHER HIGH RISK TYPES Negative Negative 03/14/2022 11:14 AM CDT [facility] Other (Cervical/Vagina l) 03/09/2022 12:00 PM CDT 03/13/2022 8:27 AM CDT Narrative [facility] - 03/14/2022 11:14 AM CDT HPV types 16, 18, 31, 33, 35, 39, 45, 51, 52, 56, 58, 59, 66 and 68 DNA were undetectable or below the pre-set threshold. Methodology: Abimbola Bambi 4800 HPV Test Tejal Hewitt PHOTOGRAPHY SPOTTER MICROBIOLOGY [facility] [address] [place] [id number], * ANTI HIV 1/2 (06/20/2018 10:14 AM CDT) HIV-1/HIV-2 ANTIBODY Non-Reacti ve Non-Reacti ve 06/20/2018 2:22 PM CDT [facility] Comment:HIV-1 p24 and HIV-1/ HIV-2 Ab not detected. Blood BLOOD SPECIMEN / Unknown Venipuncture / Unknown 06/20/2018 10:14 AM CDT 06/20/2018 10:14 AM CDT Moy Breen MD [facility] [address] [place] [id number], from Last 3 Months or Most Recently Relevant to Health Maintenance Care Teams Brand Mgr Relationship Specialty Start Date End Date Rashad Knight MD [address] [place] [address] PCP - General 06/17/09
--- OUTSIDE RECORDS SUMMARY | 2024-08-20 17:12 | XMS_ITS | Encounter Summary ---
Author Organization [facility] Address [address] [place] [address] Care Team Providers Care School Coordinator Name Role Phone No Ref-Primary, Physician Primary Care Provider Comfort Louise MD Unavailable [phone] Gretta Resendez MD Unavailable [phone] Paulino Barker MD Unavailable Chuckie Perry MD Unavailable Encounter Details Date Type Department Care Team (Late st Contact Info) Description 06/10/2021 MyC Medical Advice [facility] [address] [place] [phone] Comfort Louise MD [address] [place] [address] Social History Tobacco Use Types [...] Score: 3 09/19/19 20 10:37 AM SENIOR JAVA ENGINEER documented as of this encounter Care Teams School Coordinator Relationship Specialty Start Date End Date No Ref-Primary, Physician PCP - General 09/19/19 Comfort Louise MD [address] [place] [address] Assigned OBGYN Provider 06/26/21 Gretta Resendez MD [address] [place] [address] Assigned OBGYN Provider 07/24/21 5 3 Paulino Barker MD [address] [address] Assigned PCP 08/25/21 Chuckie Prery MD [address] [place] [address] Assigned OBGYN Provider 01/20/23 documented as of this encounter
--- NOTE | 2024-08-20 18:22 | PM.OBLDTN ---
OB - Triage/Final Diagnosis Visit Information Time Seen by Provider: 18:23 Date Seen: 08/20/24 Narrative: The patient is a 34 year old 4 para 2 at 30w6d gestation by first trimester US, who presents with abdominal pain. is complicated by dichorionic diamniotic twin gestation. Amaris called clinic nurse triage this morning, requesting advice. She noted that she had fallen after twisting her ankle down 1 step, landing on her left side on to a cushion yesterday evening. She denied any abdominal pain after the event. She denies any specific direct abdominal trauma, but notes it is hard to say if her belly was hit she landed on her side. Fortunately, her kids implant with questions were she did land on this. Today, she has had intermittent discomfort across the low abdomen described as cramping. This is rated as a 2/3 out of 10 in severity, she has not needed anything for analgesia such as Tylenol. She denies any vaginal bleeding or leaking of fluid. Endorses active movement of both twins, where kick counts were entirely reassuring earlier today. Initially noted her pain was somewhat improved after a bowel movement, where expectant management was recommended with very strict return precautions. She presented to triage this evening due to some persistence of her pain. She again denies any abdominal tightening or contractions, pain is rather just described occur as dull and across the low abdomen. Denies dysuria, urgency or frequency. No change to her bowels, no nausea or vomiting. No fevers or chills. Evaluation Vital signs: Vital Signs - 24 hr 08/20/24 17:26 08/20/24 17:33 08/20/24 17:38 Temperature Pulse Rate 83 Respiratory Rate Blood Pressure 113/64 Pulse Oximetry 98 96 08/20/24 17:39 08/20/24 17:43 08/20/24 17:48 Temperature 98.3 F Pulse Rate Respiratory Rate 16 Blood Pressure Pulse Oximetry 97 96 08/20/24 17:53 08/20/24 17:58 08/20/24 18:03 Temperature Pulse Rate Respiratory Rate Blood Pressure Pulse Oximetry 97 97 97 08/20/24 18:08 08/20/24 18:13 08/20/24 18:18 Temperature Pulse Rate Respiratory Rate Blood Pressure Pulse Oximetry 97 97 96 Comments: General: Alert and oriented, in no acute distress Abdomen: Gravid. Soft uterine tone, no fundal or uterine tenderness. Mild discomfort to palpation of left side of abdomen. FHR: Twin A: Reactive NST. Baseline 140, moderate variability, several qualifying 15x15 accels present, no decels. Twin B: Difficulty to monitor - baseline 130, moderate variability with lots of movement. Unable to get continuous 20 minute strip for more than 1 hour of monitoring, thus we proceeded to BPP. Twin A: 8/8 BPP, MVP 8.2cm Twin B: 8/8 BPP, MVP 8.6cm Final Diagnosis (1) Abdominal pain affecting : Status: Acute Problem details: Triage visit for mild abdominal pain approximately 24 hours after a fall down one step with ?abdominal trauma as patient feel on her left side onto a cushion. Reactive assessment x2, with interrupted monitoring of twin B (due to movement) prompting BPP. Both twins had 8/8 BPP with evidence of mild polyhydramnios at 8.2 and 8.6cm respectively. Plan to reassess fluid with her upcoming growth US. No regular contractions or uterine irritability. Benign abdominal exam. No signs/symptoms of abruption post abdominal trauma nor labor. Discharged to home with strict return precautions. (2) Dichorionic diamniotic twin gestation: Status: Acute
--- NOTE | 2024-08-20 18:58 | CRLHL7_ITS ---
For Patients: As a result of the Century Cures Act, medical imaging exams and procedure reports are released immediately into your electronic medical record. You may view this report before your referring provider. If you have questions, please contact your health care provider. INDICATION: Fall. TECHNIQUE: Ultrasound OB pelvis transabdominal. Real-time almodovra-scale imaging of the fetus was performed without stress testing. COMPARISON: OB ultrasound 07/30/2024. FINDINGS: Sonographic imaging demonstrates a twin living intrauterine gestation. Fetus A demonstrates a regular cardiac rate of 145 beats per minute. Fetus has a cephalic orientation. Anterior placenta Amniotic fluid volume single deepest pocket 8.2 cm 2/2. motion 2/2. tone 2/2. breathing movements 2/2. Fetus B demonstrates a regular cardiac rate of 138 beats per minute. Fetus has a transverse orientation. Posterior placenta. Amniotic fluid volume single deepest pocket 8.6 cm 2/2. motion 2/2. tone 2/2. breathing movements 2/2. IMPRESSION: Twin viable intrauterine with both fetuses demonstrating a biophysical profile of 8/8. Dictated by Paulino Rodriguez MD @ 08/20/2024 8:31:53 PM (Electronically Signed)
--- NOTE | 2024-08-20 20:21 | PC.OBNST ---
NST Note NST Note Start: 08/20/24 17:37 Freq: ONCE Status: Active Protocol: Document 08/20/24 20:13 RRP (Rec: 08/20/24 20:18 RRP [id number]) NST Note 4 Para (# of births) 2 EDC 10/23/24 Gestational Age In Weeks & Days 30 Weeks & 6 Days High Risk Factors Twins Patient Presented with Complaint(s) of Other If Observation after an injury, describe fall yesterday If Pain, describe location lower abdomen Other Complaints Baby A reactive and appropriate for Gestational age, Baby B hard to keep on monitor and both had BPP and to take off monitor and marketing information manager Cathy AMOS RN Dr [facility] OB NST charge Yes Complete NST Note via Write Note Yes The provider's electronic signature indicates the NST is reactive/appropriate for gestational age. *Note to provider: If an addendum is required, open the patient's chart and click on the note under the Nurse/Allied Health tab.
--- NOTE | 2024-08-26 14:31 | PC.OBNST ---
NST Note NST Note Start: 08/20/24 17:37 Freq: ONCE Status: Discharge Protocol: Document 08/20/24 20:13 RRP (Rec: 08/20/24 20:18 RRP [id number]) NST Note 4 Para (# of births) 2 EDC 10/23/24 Gestational Age In Weeks & Days 30 Weeks & 6 Days High Risk Factors Twins Patient Presented with Complaint(s) of Other If Observation after an injury, describe fall yesterday If Pain, describe location lower abdomen Other Complaints Baby A reactive and appropriate for Gestational age, Baby B hard to keep on monitor and both had BPP and to take off monitor and piecer Cathy AMOS RN Dr Lincoln OB NST charge Yes Complete NST Note via Write Note Yes The provider's electronic signature indicates the NST is reactive/appropriate for gestational age. *Note to provider: If an addendum is required, open the patient's chart and click on the note under the Nurse/Allied Health tab.
== END 2024-08-20 20:05 | disposition home or self-care (01) ==
LOC: OB OUT 17:09 → OB 17:09
PROVIDERS: PCP Advanced Practice Midwife; Visit Provider Obstetrics & Gynecology
DX: O26.893 Other specified pregnancy related conditions, third trimester (principal); R10.9 Unspecified abdominal pain; O30.043 Twin pregnancy, dichorionic/diamniotic, third trimester; Z3A.30 30 weeks gestation of pregnancy
CPT/HCPCS: 59025; 76819; G0463

== ENCOUNTER 2024-08-27 09:21 | Outpatient (CLI) | payer OTHER, BC, SELFPAY ==
--- NOTE | 2024-08-27 09:15 | CRLHL7_ITS ---
For Patients: As a result of the Cures Act, medical imaging exams and procedure reports are released immediately into your electronic medical record. You may view this report before your referring provider. If you have questions, please contact your health care provider. INDICATION: Third trimester scan, evaluate growth in a twin gestation. COMPARISON: 07/30/2024, 08/20/2024 TECHNIQUE: Real-time grayscale imaging of the twins was performed. FINDINGS/IMPRESSION: Sonographic imaging demonstrates a living twin intrauterine gestation. Twin A demonstrates a regular cardiac rate of 135 beats per minute. Twin A has a vertex position, maternal left. The placenta lies posterior. Amniotic fluid volume appears normal and the largest fluid pocket measures 4.8 cm. The estimated weight is 1809 gm which lies at the 32nd percentile. BPD 74th percentile. HC 15th percentile. AC 42nd percentile. FL 21st percentile. The HC/AC ratio measures 1.05 range (0.96-1.14). Sonographic gestational age 32 weeks 0 days and a sonographic due date of 10/22/2024. Good correlation with dates. Normal interval growth. Twin B demonstrates a regular cardiac rate of 130 beats per minute. Twin B has a breech maternal right position. The placenta lies posterior. Amniotic fluid volume appears normal and the largest fluid pocket measures 6.6 cm. The estimated weight is 2092 gm which lies at the 76th percentile. BPD 91st percentile. HC 85th percentile. AC 89th percentile. FL 20th percentile. The HC/AC ratio measures 1.05 range (0.96-1.11). Sonographic gestational age 33 weeks 2 days and sonographic due date 10/13/2024. Sonographic age 10 days ahead of the clinical age. Dictated by Moy Gray MD @ 08/27/2024 10:36:57 AM (Electronically Signed)
== END 2024-08-27 09:22 | disposition home or self-care (01) ==
LOC: US 09:21
PROVIDERS: Visit Provider Obstetrics & Gynecology
DX: O30.043 Twin pregnancy, dichorionic/diamniotic, third trimester (principal); Z3A.32 32 weeks gestation of pregnancy
CPT/HCPCS: 76816

== ENCOUNTER 2024-09-11 15:04 | Outpatient (CLI) | payer OTHER, BC, SELFPAY ==
[2024-09-12 11:11] LABS: Strep B DNA Probe Negative (Negative)
[2024-09-12 11:12] LABS: Strep B Susceptibility Needed? No
== END 2024-09-11 15:05 | disposition home or self-care (01) ==
LOC: NFLDREF 15:05
PROVIDERS: Visit Provider Obstetrics & Gynecology
DX: Z34.83 Encounter for supervision of other normal pregnancy, third trimester (principal)
CPT/HCPCS: 87081; 87653

== ENCOUNTER 2024-09-24 08:18 | Outpatient (CLI) | payer BC, SELFPAY ==
--- NOTE | 2024-09-24 08:15 | CRLHL7_ITS ---
For Patients: As a result of the Cures Act, medical imaging exams and procedure reports are released immediately into your electronic medical record. You may view this report before your referring provider. If you have questions, please contact your health care provider. 3rd TRIMESTER TWIN GROWTH, DI DI TWINS INDICATION: Third trimester scan, evaluate growth in a twin gestation. COMPARISON: 08/27/2024 TECHNIQUE: Real-time grayscale imaging of the twins was performed. FINDINGS/IMPRESSION: Sonographic imaging demonstrates a living twin intrauterine gestation. Twin A demonstrates a regular cardiac rate of 141 beats per minute. Twin A has a vertex position maternal left. The placenta lies posteriorly. Amniotic fluid volume single deepest pocket measures 8.6 cm. The estimated weight is 2632 gm which lies at the 34th percentile. BPD 85th percentile. HC is 57th percentile. AC is 20th percentile. FL 34th percentile. The HC/AC ratio measures 1.08 range (0.92-1.08). Sonographic gestational age 36 weeks 1 day and sonographic due date of 10/21/2024. Good correlation with dates. Normal interval growth. Twin B demonstrates a regular cardiac rate of 139 beats per minute. Twin B has a breech position maternal right. The placenta lies posteriorly. Amniotic fluid volume single deepest pocket measures 8.7 cm. The estimated weight is 2978 gm which lies at the 71st percentile. BPD 94th percentile. HC 96th percentile. AC 77th percentile. FL 21st percentile. The HC/AC ratio measures 1.06 range (0.91-1.05). Sonographic gestational age 37 weeks 2 days and sonographic due date of 10/13/2024. Sonographic age 10 days ahead of the clinical age. Dictated by Moy Gray MD @ 09/24/2024 1:34:11 PM (Electronically Signed)
== END 2024-09-24 08:19 | disposition home or self-care (01) ==
LOC: US 08:19
PROVIDERS: Visit Provider Obstetrics & Gynecology
DX: O30.043 Twin pregnancy, dichorionic/diamniotic, third trimester (principal); Z3A.36 36 weeks gestation of pregnancy
CPT/HCPCS: 76816; 76819

== ENCOUNTER 2024-10-01 08:12 | Outpatient (CLI) | payer BC, SELFPAY ==
--- NOTE | 2024-10-01 08:15 | CRLHL7_ITS ---
For Patients: As a result of the Century Cures Act, medical imaging exams and procedure reports are released immediately into your electronic medical record. You may view this report before your referring provider. If you have questions, please contact your health care provider. INDICATION: Di-di twin COMPARISON: 09/24/2024 TECHNIQUE: Real time almodovar scale imaging of the twin was performed. Without non-stress testing. FINDINGS: Sonographic imaging demonstrates a twin living intrauterine gestation. Twin A: Fetus demonstrates a regular cardiac rate of 141 beats per minute. Fetus has a vertex position, maternal left. The amniotic fluid volume single deepest pocket measurement of 6.4 cm. The fetus was active and demonstrated normal breathing movements. There was normal flexion and extension of the trunk and extremities. Twin B: Fetus demonstrates a regular cardiac rate of 134 beats per minute. Fetus has a vertex position, maternal right. The amniotic fluid volume single deepest pocket measurement of 8.2 cm. The fetus was active and demonstrated normal breathing movements. There was normal flexion and extension of the trunk and extremities. IMPRESSION: Twin A: Normal biophysical profile score of 8 out of 8. Twin B: Normal biophysical profile score of 8 out of 8. Amniotic fluid single deepest pocket 8.2 cm. Dictated by Moy Gray MD @ 10/01/2024 1:08:56 PM (Electronically Signed)
== END 2024-10-01 08:13 | disposition home or self-care (01) ==
LOC: US 08:13
PROVIDERS: Visit Provider Obstetrics & Gynecology
DX: O30.049 Twin pregnancy, dichorionic/diamniotic, unspecified trimester (principal)
CPT/HCPCS: 76819

== ENCOUNTER 2024-10-08 09:06 | Outpatient (CLI) | payer BC, SELFPAY ==
--- NOTE | 2024-10-08 09:15 | CRLHL7_ITS ---
For Patients: As a result of the Cures Act, medical imaging exams and procedure reports are released immediately into your electronic medical record. You may view this report before your referring provider. If you have questions, please contact your health care provider. OB ULTRASOUND ??? TWIN MEAGAN by US: 10/23/2024. GA: 37 w, 6 d. Twin. Comparison: 10/01/2024, 09/24/2024, 08/27/2024. INDICATION: Di-Di twin . TECHNIQUE: Real time almodovar scale imaging of the fetus was performed. Transabdominal TWIN A: CERVIX: Not visualized. POSITIONING: Vertex. AMNIOTIC FLUID: 4.8 cm. SDP (N: greater than 2 x 1 cm) BIOPHYSICAL PROFILE: Total score: 8. Gross body movements: 2. tone: 2. Respiratory activity: 2. Amniotic fluid: 2. (SDP N: greater than 2 x 1 cm) PLACENTA: Technique: Transabdominal. PLACENTA POSITION: Posterior, left wall. DOPPLER: heart rate: 137 bpm. TWIN B: CERVIX: Not visualized. POSITIONING: Breech. AMNIOTIC FLUID: 3.8 cm. SDP (N: greater than 2 x 1 cm) BIOPHYSICAL PROFILE: Total score: 8. Gross body movements: 2. tone: 2. Respiratory activity: 2. Amniotic fluid: 2. (SDP N: greater than 2 x 1 cm) PLACENTA: Technique: Transabdominal. PLACENTA POSITION: Posterior. DOPPLER: heart rate: 131 bpm. IMPRESSION: Biophysical profile score 8 of 8 for both twins. Parul Boo M.D. Diagnostic/Breast Radiologist [email or web address] PAYTON/lalita celis/Dictated by: Parul Boo MD @ 10/08/2024 3:30:00 PM (Electronically Signed)
== END 2024-10-08 09:07 | disposition home or self-care (01) ==
LOC: US 09:06
PROVIDERS: Visit Provider Obstetrics & Gynecology
DX: O30.043 Twin pregnancy, dichorionic/diamniotic, third trimester (principal); Z3A.37 37 weeks gestation of pregnancy
CPT/HCPCS: 76819

== ENCOUNTER 2024-10-09 15:56 | Inpatient (IN) | payer BC, SELFPAY ==
[2024-10-09] VITALS (10 sets, daily range): BP systolic 110–141; BP diastolic 61–85; PULSE 71–104; RESP 16; TEMP 36.7–37; O2SAT 97; BMI 31.0
--- NOTE | 2024-10-09 17:02 | W.PM.LDBA ---
Subjective History of Present Illness Date Seen: 10/09/24 Narrative: Patient is being admitted to Labor and Delivery for IOL. She is a 34 year old at 38 weeks gestation in di-di twin . Her full history and physical was dictated by Dr. Albarado on 10/01/24. Please see this for details. Specific Issues/Plans Spouse: Yehuda Children: Apple Lugo. Babies: Boys! #Di/Di Twin gestation ASA 81mg Referral to [facility] 10-13 weeks 04/22/2024: Confirmed chorionicity Level 2 ultrasound and consult with [facility]:Complete 05/27/24,see below. Growth ultrasound q.4 weeks starting at 24 week Weekly BPP starting at 36 weeks Delivery recommended 38- 38 02/21 #Mild polyhydramnios x 2, recurring at 36 weeks Triage visit with 04/24 BPP x2 on 08/20 with MVP of 8.2cm for twin A and 8.6cm for twin B Normal MVPs of both twins on 08/27 growth US. Normal fluid for twin A (SDP 6.4), mild polyhydramnios for twin B (SDP 8.2) on 10/01/2024. #Worsening SOB, lightheadedness at 20 weeks EKG in clinic with Non specific ST abnormality Sent to ED, R/O PE: Negative CT TSH normal at 1.150 on 07/30/24 US - [facility] on 04/22/24 - confirmed dichorionic diamniotic twins at 13 weeks 5 days gestation age. Nuchal translucency measurement within normal range for both fetuses. Nasal bone visualized in both twins. Visualized anatomy appears normal for early gestational age. -M on 05/27/24: Impression: Dichorionic diamniotic twins at 18 weeks 5 days. Fetus 1: No anomalies identified, growth parameters an estimated weight consistent with gestational age. Amniotic fluid volume normal. EFW: 265 g, 57th percentile. Fetus to: No anomalies identified, growth parameters an estimated weight consistent with gestational age. Normal amount of amniotic fluid. EFW: 279 g, 72 percentile. Inter twin discordance 4.9%. Cervix appears long and closed. Additional recommendations as above. - 07/04/2024: USN for growth: Vtx/Vtx. Twin A: SDP: 6.6cm. EFW: 702 g, 1 lb 9 oz, 56%. BPD 50%, HC 21%, AC 65%, FL 39%. Twin B: SDP 7.4cm. EFW: 830 g, 1 lb 13 oz, 95% BPD 82%, HC 62%, AC 84%, SL 85%. Inter twin discordance: 18% - 07/30/2024: Twin A EFW 35%tile, AC 40.7%. SDP 3.9 cm. Twin B EFW 66%tile, AC 70.6%. SDP 5.3 cm. - 08/27/24: Twin A, Vertex, 1809g at 32%ile, AC 42%. MVP 4.8cm. Twin B, Breech, 2092g at 76%ile, AC 89%. MVP 6.6cm. Discordance is 13.5%. -09/24/24: Twin A - cephalic, SDP 8.6 (mild poly), EFW 34%, AC 20%. Twin B - breech, SDP 8.7 (mild poly), BPP 8/8, EFW 71%, AC 77%, BPD 94%, HC 96%, FL 21%. 11 % discordance Flu: 07/04/24 Covid: 07/04/24 Tdap: 08/12 RSV: 08/27 OB - Problem Based A/P Additional Plan (1) Dichorionic diamniotic twin gestation: Status: Acute Plan Using aseptic technique, Cook catheter is placed and both intracervical and intravaginal balloons are inflated to 60 mL. This was placed at 5:40 p.m.. This will be left in place until 540. Pitocin will be used overnight, provided that she is not donald regularly. Continuous monitoring while on Pitocin. Delivery/Labor/Induction Plan Induction method: Intracervical balloon catheter OB Exam Physical Exam Vital signs: Temp Pulse Resp BP Pulse Ox 98.5 F 81 16 133/84 97 10/09/24 16:24 10/09/24 16:28 10/09/24 16:24 10/09/24 16:28 10/09/24 16:25 Narrative: Physical exam: General: No acute distress Psych: Alert and oriented x3, full affect HEENT: Normocephalic, atraumatic Heart: Regular rate and rhythm, no murmur rub or gallop Lungs: Clear to auscultation bilaterally Abdomen: Soft, nontender, gravid Lower extremities: No edema or erythema Pelvic exam: cervix 2 cm, 40% effaced,-3 station, mid position and soft. Cephalic. tracings are category 1 for both fetuses. Intermittent contractions.
[2024-10-09 19:06] LABS: Hematocrit 37.7 % (33.0-51.0); Hemoglobin* 12.8 gm/dL (12.0-16.0); Mean Corpuscular HGB Conc 34 gm/dL (32-36); Mean Corpuscular Hemoglobin 31 pg (26-34); Mean Corpuscular Volume 91 fL (80-100); Platelet Count* 140 K/uL (140-440); Red Blood Count 4.13 m/uL (4.00-5.20); White Blood Count* 10.78 K/uL (4.50-11.00)
[2024-10-09 19:25] LABS: Alanine Aminotransferase* 31 U/L (4-35); Aspartate Amino Transferase* 32 U/L (12-35); Blood Urea Nitrogen* 11 mg/dL (5-24)
[2024-10-09 19:29] LABS: Slide Review Reflex No
[2024-10-09 19:50] LABS: Total Protein Urine 15 mg/dL
[2024-10-09 19:51] LABS: Creatinine Urine 79.1 mg/dL; Protein Creatinine Ratio Urine 0.19 (0-0.19)
[2024-10-10] VITALS (51 sets, daily range): BP systolic 83–148; BP diastolic 51–93; PULSE 73–141; RESP 14–18; TEMP 36.3–36.9; O2SAT 82–99
[2024-10-10] MEDS: LACTATED RINGERS 1000 ML 1,000 ML 125 ML IV ×3 (06:06→13:00)
[2024-10-10] MEDS: OXYTOCIN 30 unit/500 ML in NS 30 UNIT/500 ML BAG IVPB (06:07)
--- NOTE | 2024-10-10 07:56 | PM.OBPNL ---
Subjective Time Seen by Provider: 07:56 Date Seen: 10/10/24 Objective Vital Signs: Last Vital Signs Temp 98.2 F 10/10/24 01:18 Pulse 120 H 10/10/24 07:37 Resp 16 10/09/24 16:24 BP 120/75 10/10/24 07:37 Pulse Ox 97 10/09/24 16:25 Pelvic Exam Dilation (cm): 4 Effacement (%): 75 Station: -2 Comments: Patient comfortable. Assessment Tracing Comments: NST cat I x 2. Labor Progress: Has not changed over night. Consented to AROM and scalp clip on fetus A. AROM with copious amount of clear fluid. Scalp clip placed without issues. Plan Plan: - Titrate pitocin per protocol - Epidural PRN per patient - Repeat exam in 4 hours or sooner if indicated
[2024-10-10] MEDS: fentaNYL 100 MCG/2 ML inj EPIDURAL (09:11)
[2024-10-10] MEDS: LIDOCAINE 2% (PF) 5 ML VIAL EPIDURAL (09:21)
[2024-10-10] MEDS: ROPIVACAINE 0.2% 100 ml 100 ML 12 MG EPIDURAL (09:26)
--- NOTE | 2024-10-10 09:27 | PM.OBPNL ---
Subjective Time Seen by Provider: 09:00 Date Seen: 10/10/24 Narrative: RN report she's requesting epidural and feeling a lot of pressure. Actively moving patient to OR to get an epidural. S/p Epidural I was able to check patient. Objective Vital Signs: Last Vital Signs Temp 98.2 F 10/10/24 01:18 Pulse 109 H 10/10/24 09:26 Resp 16 10/09/24 16:24 BP 130/78 10/10/24 09:26 Pulse Ox 94 10/10/24 09:27 Pelvic Exam Dilation (cm): 6 Effacement (%): 80 Station: -2 Contractions Contraction pattern: Regular Contraction intensity: Moderate Pitocin Rate (mU/min): 3 Assessment Tracing Comments: Fetus A: Cat I Fetus B: Hard to keep on during epidural. Spot check is reassuring. Overall, cat I when able to keep on for longer stretches. Labor Progress: Appropriate Maternal Status: Coping better after epidural. Plan Plan: - Continue titrating Pitocin
--- NOTE | 2024-10-10 09:45 | P.ANBPRC_ITS ---
[facility] Medical History Panic attacks ?F41.0 - Panic disorder [episodic paroxysmal anxiety] (ICD-10) Twin ?O30.009 - Twin , unspecified number of placenta and unspecified number of amniotic sacs, unspecified trimester (ICD-10) Nicotine dependence in remission ?F17.201 - Nicotine dependence, unspecified, in remission (ICD-10) Normal spontaneous vaginal delivery (08/04/19) ?O80 - Encounter for full-term uncomplicated delivery (ICD-10) Surgical History (Updated 10/01/24 @ 09:43 by Nila Albarado MD) History of repair of anterior cruciate ligament of left knee (06/26/22) ?Z98.890 - Other specified postprocedural states (ICD-10) History of dilation and curettage (07/30/18) ?Z98.890 - Other specified postprocedural states (ICD-10) History of tonsillectomy ?Z90.89 - Acquired absence of other organs (ICD-10) S/P ACL reconstruction ?Z98.890 - Other specified postprocedural states (ICD-10) Family History (Updated 10/01/24 @ 09:44 by Nila Albarado MD) Mother High blood pressure High cholesterol Paternal Grandfather High cholesterol Maternal Grandfather Alcohol dependence Paternal Grandmother Cardiac arrhythmia Other Stroke Social History Narrative: 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 Marital status: . Zoroastrianism/cultural needs: no. Chemical or radiation exposure: no. Pre- tobacco use: Occasional cigarette 1 year prior to . Pre- alcohol use: 2-3 per week. Current tobacco use: no. Current alcohol use: no. Recreational drug use: Occasional marijuana before . Dietary restrictions: no. Blood transfusion acceptable in an emergency: yes. PSYCHOSOCIAL HISTORY: History of depression or currently depressed: no. Current or past physical, emotional, or sexual mistreatment: no. Problems that will make it hard to make it to appointments: no. What is your current living situation?: I presently have a place to live Problems where you live: no known problems In the past 12 months, utilities in danger of being shut off: no In past 12 months, lack of transportation kept you from medical appts, meetings, work, or getting things needed for daily living: no In the past 12 mos, have been you worried that your food would run out before you had money to buy more?: never true In the past 12 mos, the food you bought just didn't last and you didn't have money to buy more?: never true Smoking Status: Never smoker Do you use any of these nicotine containing products: None Second hand tobacco smoke exposure: No How often do you have a drink containing alcohol: never How often do you have six or more drinks on one occasion: Never AUDIT-C Alcohol total score: 0 Non-prescribed substance use: denies use How often does anyone, including family, friends and others, physically hurt you : never How often does anyone, including family, friends and others, insult or talk down to you: never How often does anyone, including family, friends and others, threaten you with harm: never How often does anyone, including family, friends and others, scream or curse at you: rarely Health Related Social Needs: Other personal risk factors, not elsewhere classified (Z91.89) Meds Home Medications and Allergies Home Medications ?Medication ?Instructions ?Recorded ?Confirmed ?Type prenat.vits,toribio,umb-vabk-kryjc 1 tab PO QDAY 06/22/22 10/09/24 History magnesium 200 mg tablet 200 mg PO QDAY 12/26/23 10/09/24 History docusate sodium 100 mg capsule 100 mg PO QDAY 03/18/24 10/09/24 History aspirin 81 mg tablet,delayed 81 mg PO QDAY 05/08/24 10/09/24 History release (Adult Low Dose Aspirin) ferrous sulfate 325 mg (65 mg 325 mg PO Q OTHER DAY 07/30/24 10/09/24 History iron) tablet omeprazole 20 mg capsule,delayed 20 mg PO DAILY 10/09/24 10/09/24 History release Allergies Allergy/AdvReac Type Severity Reaction Status Date / Time Penicillins Allergy Intermediate Rash Verified 10/09/24 16:57 Results Labs Labs: Laboratory Results - last 24 hr 10/09/24 10/09/24 18:46 18:58 WBC 10.78 RBC 4.13 Hgb 12.8 Hct 37.7 MCV 91 MCH 31 MCHC 34 Plt Count 140 BUN 11 AST 32 ALT 31 Urine Creatinine 79.1 Protein/Creatinin Ratio 0.19 Urine Total Protein 15 Blood Type A Positive Antibody Screen NEGATIVE Vital Signs Vital Signs: Last Vital Signs Temp 98.2 F 10/10/24 01:18 Pulse 131 H 10/10/24 09:34 Resp 16 10/09/24 16:24 BP 127/85 10/10/24 09:34 Pulse Ox 98 10/10/24 09:41 Weight: 86.001 kg Height: 166.37 cm Anesthesia Procedures Epidural Insertion Patient Location: OR (Patient delivering in OR 5 due to twins) Start Time: : Stop Time: :00 Start Date: 10/10/24 Stop Date: 10/10/24 Reason for Block: primary anesthetic Patient Position: sitting Performed By: [facility] Preanesthetic Checklist: IV checked, risks and benefits discussed, monitors and equipment checked, pre-op evaluation, timeout performed and anesthesia consent Prep: chlorhexidine gluconate Monitoring: blood pressure monitoring, continuous pulse oximetry and heart rate Approach: midline Vertebral Space: lumbar (1-5) Epidural Technique: ESAU saline Needle Type: Tuohy needle Injection Technique: continuous catheter Needle gauge: 17 Needle Length (cm): 10 cm Needle Insertion Depth (cm): 5 Catheter Gauge: 19 Catheter Type: multi-orifice Catheter at skin depth (cm): 15 Test Dose Result: negative and lidocaine 1.5% with epinephrine 1 to 200,000
--- NOTE | 2024-10-10 11:12 | CRLHL7_ITS ---
For Patients: As a result of the Century Cures Act, medical imaging exams and procedure reports are released immediately into your electronic medical record. You may view this report before your referring provider. If you have questions, please contact your health care provider. Indication: Stat , towel count not performed Technique: Abdomen 2 view. Comparison: None. Findings: The subdiaphragmatic and right lateral abdomen are excluded from the field of view. Overlying right arm limits evaluation of the right abdomen. Within these limitations, no radiopaque foreign body resembling a lap pad is visualized. Overlying tubing is visualized. There is a radiopaque linear appearing object coursing across the abdomen, which may represent a wire, and may be external to the patient. Nonobstructive bowel gas pattern. Bones and soft tissues are unremarkable. Impression: No definite lap pad visualized. Dictated by Radha Moser MD @ 10/10/2024 12:11:32 PM (Electronically Signed)
--- NOTE | 2024-10-10 12:37 | P.NB_ITS ---
Nerve Block Nerve Block Time Seen by Provider: 12:00 Date Seen: 10/10/24 Type of block requested by surgeon for post-operative analgesia: TAP Side: bilateral Time out performed: Yes Verification of patient name: Yes Verification of date of : Yes Site marking: not applicable Name of person performing procedure: peggy yoo Continuous monitoring Was continuous monitoring of O2 sat, B/P, potline monitor, recorded every 15 minutes?: Yes Procedure Checklist: sterile prep, needles and gloves Ultrasound guided. Images saved: Yes Medications given in 5ml increments after negative aspiration: Marcaine %: 0.25 mL: 30 Needle gauge: 20 and Exparel mL: 10 Patient tolerated procedure well: Yes Block Charges Block Charge (with Pro Fee): TAP Bilateral Use of Ultrasound Machine for Block: Yes- US Guidance/pain block
--- NOTE | 2024-10-10 12:39 | P.ANES_ITS ---
Anesthesia Charges Start Date/Time Anesthesia Start Date: 10/10/24 Anesthesia Start Time: 10:58 Stop Date/Time Anesthesia Stop Date: 10/10/24 Anesthesia Stop Time: 12:25 Summary Emergency: DIMITRI Coding CPT Codes CPT Codes: ANES/ANALG CS DELIVER ADD-ON - 40761 ([id number]) QK - BUILDING GUARD DEPUTY SHERIFF 2-4 CNCRNT ANES PROC, QX - REFINERY OPERATOR HELPER CRACKING UNIT SVC W/ MD MED DIRECTION, P2 - PATIENT W/MILD SYST DISEASE Additional Codes: Summary - Emergency: DIMITRI ([id number])
--- NOTE | 2024-10-10 12:39 | W.ANESCHARGE ---
Anesthesia Charges Start Date/Time Anesthesia Start Date: 10/10/24 Anesthesia Start Time: 10:58 Stop Date/Time Anesthesia Stop Date: 10/10/24 Anesthesia Stop Time: 12:25 Summary Emergency: DIMITRI Coding CPT Codes CPT Codes: ANES/ANALG CS DELIVER ADD-ON - 53879 ([id number]) QK - COMPUTER TRAINING SPECIALIST 2-4 CNCRNT ANES PROC, QX - DIRECTOR OF MEDICARE SVC W/ MD MED DIRECTION, P2 - PATIENT W/MILD SYST DISEASE Additional Codes: Summary - Emergency: DIMITRI ([id number])
--- NOTE | 2024-10-10 16:04 | PM.OBPRCCS ---
Procedure Time Seen by Provider: 12:00 Date of procedure: 10/10/24 Procedure Done: Global Will [facility] bill your pro fee for this procedure?: Yes Surgeon: Phyllis Garcia MD Can Carrier: Carolee Burnett MD Procedure Description: TWINS DELIVERY - Twin A - uncomplicated vaginal delivery (Delivery at 1049) - Twin B - Emergency delivery due to cord prolapse and malpresentation (Delivery at 1105) Summary: Admitted for labor induction at 38.1 week for Di-di twins . Patient s/p approximately 4 hours of cook cath placement. Pitocin started at 0600. AROM of twin A at approximately O730. scalp clip placed at that time as well. Patient progressed to 6 cm at 0900. She was moved to the OR for an epidural placement at that time. She then labored in the OR with the anticipation that she will progress quickly. She was complete/complete +2 station at 1034 and gonzales catheter was removed. She started pushing soon after that. Dr. Burnett was also at bedside to assist with delivery and ultrasound imaging. At 1049 a viable male infant delivered in vertex OA presentation over intact via spontaneous vaginal delivery. The infant's body was delivered in the usual manner without difficulty. The infant was placed on maternal abdomen. The cord was clamped and cut after a 30 second delay. The nose and mouth were bulb suctioned. A weight: 6lb 4 oz. 8 at 1 minute and 9 at 5 minutes. Shoulder dystocia: No. Nuchal cord: No The umbilical cord was clamped to signify Baby A but placenta in situ pending delivery of twin B. Minimal bleeding with delivery of Twin A. No laceration. NST Fetus A: Cat I with early deceleration with pushing. Attention was then turned toward, assessing positioning of fetus B. On ultrasound, fetus B was slightly oblique/breech with butt tilted towards maternal right. Slight pressure applied from the right lower abdomen towards midline to center the breech. Patient was asked to push with contraction to help the breech descend down the canal. I was supporting the descent of the breech manually. Patient SROM on exam and during pushing. Copious amount of clear fluid expressed, approximately 2L. Cord prolapse palpated with the flow of the amniotic fluid. Unable to be reduced with elevation of the breech. Emergency delivery was called for cord prolapse. New gonzales catheter placed back in for the delivery. NST B: Cat I until cord prolapse. After cord prolapse variable decel to the 60s with contractions. Recovering to 120-130s once contractions subsided. Primary Indication for delivery: 1. Cord prolapse and malpresentation of twin B Procedures: Primary Lower uterine transverse section T-incision extension into the active segment (not a candidate for subsequent labor, repeat delivery at 36.0 -37.0 weeks) Specimens Removed: Placentas (2) Surgeon: Phyllis Garcia MD Can Carrier Surgeon: Carolee Burnett MD Anesthesia: Epidural Report: Prophylactic antibiotic, 2 g of Ancef was given to patient and epidural redosed for delivery. Splash prep with Iodine administered. Laparotomy A pfannenstiel incision was made through the anterior abdominal wall with #10 scalpel approximately 2 cm above the pubic symphysis. The incision was extended sharply with the #10 scalpel through the subcutaneous tissue to the level of fascia. The fascia was entered sharply with a #10 scalpel (Pfannenstiel) in the midline and extended in semi-elliptical fashion bluntly. The underlying muscles were dissected off the overlying fascia bluntly. The rectus muscles were in the midline bluntly with digits. The peritoneum was then entered bluntly. The peritoneal incision was then extended superiorly and inferiorly under direct visualization with care being taken to avoid bladder and bowel. No adhesions were noted. The peritoneal incision was enlarged bluntly by lateral traction from the surgeon's and certified surgical tech/first assistant's hand. Blas retractor was inserted into the abdomen. Delivery A bladder flap was note developed as it was low off the lower uterine segment. A low transverse hysterotomy was made then with #10 scalpel and extended laterally and cephalad with fingers in a low transverse fashion with Manu Diaz technique with care being taken to avoid injury to the fetus. Thick lower uterine segment noted due to the decompression of the uterus. More amniotic fluid expressed and noted to be clear. At this point, fetus was found to be in transverse position with head to maternal left and back down. There was difficult with deliver of the legs due to how contracted the uterus was. Decision made to make a T incision with Ricardo scissors superiorly. buttocks were palpated and delivered gradually through the hysterotomy fundal pressure was continue in both legs were extended using the Pinard maneuver. With gentle pressure the legs and body gradually delivered once the scapula could be seen that the baby was gently rotated and both arms were delivered using the loveset maneuver. Maintaining head flexion, head was delivered without difficulty using the [id number] maneuver. Cord was clamp and cut right away so baby B can be given to team immediately. Placenta (x2) were delivered spontaneously with steady traction on cord and manual separation of placenta from uterine wall. Closure Uterine cavity was cleaned after placental delivery with lap sponge x 3. The vertical incision of the hysterotomy was closed in 3 layers with stitches using 0 vicryl with continuous locking stitches for the deep layer and 0 vicryl in a continuous non locking manner for the two more superficial layers. Low transverse incision was closed in two layers using 0 vicryl in a continuous locking manner and 0 Monocryl in a continuous non locking manner. Hemostasis was achieved as needed with electrocautery. The ovaries/tubes/uterine surface were evaluated. They were found to be normal. Blas retractor removed and hemostasis was confirmed again. Fascia was closed with running stitches using 0 vicryl. Subcutaneous layer was irrigated. Hemostasis was checked for and found to be adequate. Abdominal X ray take as no initial count was done. Abdomen X ray was normal and did not show retained laps/instruments. The subcutaneous layer was closed with running 2-0 chromic sutures. The skin was closed with 3-0 monocryl subcuticular sutures . The incision was cleaned, exofin applied, and Mepilex dressing placed. The procedure considered terminate at this time. B weight: 7lb 2oz APGARs: 3/9 Intraoperative Complications: None QBL: 533 cc Uterotonics: 40 u of pitocin Disposition: The patient tolerated the procedure well. She was recovered in Obstetric PACU for close monitoring in stable condition, with a contracted uterus and normal transvaginal bleeding. The infants were sent to mother?s bedside. A segment of the cord was obtained for umbilical cord gases of Baby B due to emergent delivery. Cord blood gas was not available at time of operative note entered. The placentas (x2) were sent to pathology. Debrief with OR team performed and specimen reviewed at the conclusion of the procedure. Patient and counseled on the events of delivery and anticipatory guidance given.
[2024-10-10] MEDS: KETOROLAC 30 MG/ML inj IVP (18:34)
[2024-10-10] MEDS: CEFAZOLIN 2 GM in 0.9 % SODIUM CHLORIDE Mini-bag 100 ML IVPB (18:35)
[2024-10-10] MEDS: ACETAMINOPHEN 500 MG TABLET 1000 MG PO (19:59)
[2024-10-11] MEDS: CEFAZOLIN 2 GM in 0.9 % SODIUM CHLORIDE Mini-bag 100 ML IVPB ×2 (00:03→06:16)
[2024-10-11] MEDS: SODIUM CHLORIDE 0.9 % (FLUSH) 10 ML SYRINGE IVF ×2 (00:04→20:45)
[2024-10-11] MEDS: KETOROLAC 30 MG/ML inj IVP ×4 (00:40→20:45)
[2024-10-11 01:14] VITALS: BP 114/76; PULSE 72; RESP 16; TEMP 36.8; O2SAT 95
[2024-10-11] MEDS: ACETAMINOPHEN 500 MG TABLET 1000 MG PO ×2 (04:54→16:29)
[2024-10-11 05:00] VITALS: BP 115/63; PULSE 70; RESP 20; TEMP 36.2; O2SAT 98
[2024-10-11 07:07] LABS: Hemoglobin* 9.7 gm/dL (12.0-16.0)
[2024-10-11 09:00] VITALS: BP 106/54; PULSE 87; RESP 16; TEMP 36.4; O2SAT 98
--- NOTE | 2024-10-11 09:40 | PM.OBPNVD1 ---
OB - PN:Subj Subjective Date Seen: 10/11/24 Interval history: Amaris is a 34-year-old G4 now P2-0-1-4 woman who is status post delivery of dichorionic, diamniotic twins on 10/10/2024 at 38 weeks, 1 day gestation (vaginal for twin a, emergency for twin B for indication of cord prolapse). She is feeling well today. Pain is well managed. She is currently walking around her room. She denies any heavy bleeding. She is successfully breast feeding the twins. She is tolerating a regular diet. No flatus yet. Her only complaint is some upper abdominal pain that radiates to her back with deep breaths. She also has some neck pain / soreness bilaterally. OB - PN: Obj Exam Physical Exam: Vital signs: Temp Pulse Resp BP Pulse Ox O2 Del Method 97.2 F L 70 20 115/63 98 Room Air 10/11/24 05:00 10/11/24 05:00 10/11/24 05:00 10/11/24 05:00 10/11/24 05:00 10/11/24 05:00 Narrative: General: Pleasant, no acute distress Heart: Regular rate and rhythm, no murmur or gallop Lungs: Clear to auscultation bilaterally Abdomen: Soft, nontender, fundus well below umbilicus. Dressing clean, dry, and intact Lower extremities: No edema or erythema OB - PN: Obj Data Labs Labs: Laboratory Results - last 24 hr 10/11/24 06:41 Hgb 9.7 L OB - PN: A/P Delivery Assessment and Plan (1) Status post emergency section: Problem details: Emergency for 2nd coming twin for indication of cord prolapse 10/10/2024. T-incision. Status: Acute Assessment and Plan: Appropriate course. Routine cares. (2) Anemia due to acute blood loss: Status: Acute Assessment and Plan: Begin ferrous sulfate QOD. Plan Plan: routine care Comments: I suspect neck pain is due to positioning during and/or . Continue to monitor. Upper abdominal pain likely due to air trapped in peritoneal cavity.
[2024-10-11] MEDS: OXYCODONE 5 MG TABLET PO (09:56)
[2024-10-11 15:39] VITALS: BP 120/75; PULSE 82; RESP 16; TEMP 36.7; O2SAT 97
[2024-10-11 16:50] LABS: Rapid Plasma Reagin (RPR) Non Reactive (Non Reactive)
[2024-10-11] MEDS: FERROUS SULFATE 325 MG TABLET PO (16:55)
[2024-10-11 21:00] VITALS: BP 107/54; PULSE 78; RESP 16; TEMP 36.7; O2SAT 95
[2024-10-12 08:30] VITALS: BP 110/65; PULSE 82; RESP 16; TEMP 36.5; O2SAT 98
--- NOTE | 2024-10-12 09:28 | PM.OBPNVD1 ---
OB - PN:Subj Subjective Date Seen: 10/12/24 Interval history: Amaris is a 34-year-old G4 now P2-0-1-4 woman who is status post delivery of dichorionic, diamniotic twins on 10/10/2024 at 38 weeks, 1 day gestation (vaginal for twin A, emergency for twin B for indication of cord prolapse). She is feeling well today. Pain is well managed. She is successfully breast feeding the twins, though they have lost 6 and 7% of weight at this point. She is tolerating a regular diet. She is passing flatus. Her only complaints continue to be some upper abdominal pain that radiates to her back with deep breaths, and neck pain / soreness from bilateral shoulders to occiput. Heating pad has helped. OB - PN: Obj Exam Physical Exam: Vital signs: Temp Pulse Resp BP Pulse Ox O2 Del Method 98.1 F 78 16 107/54 L 95 Room Air 10/11/24 21:00 10/11/24 21:00 10/11/24 21:00 10/11/24 21:00 10/11/24 21:00 10/11/24 21:00 Narrative: General: Pleasant, no acute distress Neck: Non-tender to palpation; reports soreness in distribution described above Heart: Regular rate and rhythm, no murmur or gallop Lungs: Clear to auscultation bilaterally Abdomen: Soft, nontender, fundus at umbilicus. Incision clean / dry / intact Lower extremities: No edema or erythema OB - PN: Obj Data Labs Labs: Laboratory Results - last 24 hr 10/09/24 18:58 RPR Screen Non Reactive OB - PN: A/P Delivery Assessment and Plan (1) Status post emergency section: Problem details: Emergency for 2nd coming twin for indication of cord prolapse 10/10/2024. T-incision. Status: Acute Assessment and Plan: Appropriate course. (2) Anemia due to acute blood loss: Status: Acute Assessment and Plan: Continue ferrous sulfate. Plan Neck pain, suspect musculoskeletal. Continue heating pad and begin Flexeril 5 mg TID prn. Plan day: 2 Plan: routine care Comments: Anticipate discharge tomorrow.
[2024-10-12] MEDS: OXYCODONE 5 MG TABLET PO ×3 (11:21→23:34)
[2024-10-12] MEDS: ACETAMINOPHEN 500 MG TABLET 1000 MG PO ×3 (11:34→23:34)
[2024-10-12] MEDS: IBUPROFEN 600 MG TABLET PO ×2 (14:24→20:31)
[2024-10-12 16:30] VITALS: BP 123/85; PULSE 82; RESP 14; TEMP 36.5; O2SAT 98
[2024-10-12 20:46] VITALS: BP 112/71; PULSE 71; RESP 18; TEMP 36.3; O2SAT 96
[2024-10-13] MEDS: IBUPROFEN 600 MG TABLET PO ×2 (02:31→08:18)
[2024-10-13 06:00] VITALS: RESP 16
[2024-10-13] MEDS: OXYCODONE 5 MG TABLET PO (06:01)
[2024-10-13] MEDS: ACETAMINOPHEN 500 MG TABLET 1000 MG PO (06:01)
--- NOTE | 2024-10-13 07:29 | P.DS_ITS ---
Documented by User: Annalisa Downing CNM 10/13/24 09:29 DS: Providers Provider Date Seen: 10/13/24 Date of admission: 10/09/24 15:56 Primary care physician: Not a Local Provider Admitting Clinician: Nila Albarado MD Consults: 10/09/24 16:52 Consult to Finance Specialist [CONS] Routine Comment: Reason for Consult:: Social Service Consult Attending Physician on discharge: Jayce RINCON, [place] Date of Discharge: 10/13/24 DS: Diagnosis Discharge Diagnosis (1) Status post emergency section: Status: Acute Problem details: Emergency for 2nd coming twin for indication of cord prolapse 10/10/2024. T-incision. (2) Anemia due to acute blood loss: Status: Acute (3) Lactating mother: Status: Acute (4) care following delivery: Status: Acute Exam Narrative: Exam Narrative: GENERAL APPEARANCE:? normal affect, alert, no distress MOOD:? appropriate CHEST:? clear to auscultation HEART:? regular rate and rhythm ABDOMEN:? soft, non-tender the uterine fundus is at Umbilicus, Midline and is appropriate for the stage of recovery. Bowel sounds active x 4 quadrants EXTREMITIES:? normal and R lower extremity trace edema Incision: Durabond, healing well, no surrounding erythema, abnormal induration, odor or discharge Const: Vital Signs, click to edit/add: Vital Signs - 24 hr 10/12/24 08:30 10/12/24 16:30 10/12/24 20:46 Temperature 97.7 F 97.7 F 97.3 F L Pulse Rate [Blood Pressure Cuff] 82 82 71 Respiratory Rate 16 14 18 Blood Pressure [Le ft Arm] 110/65 123/85 112/71 Pulse Oximetry 98 98 96 Oxygen Delivery Me thod Room Air Room Air Room Air 10/13/24 06:00 Temperature Pulse Rate [Blood Pressure Cuff] Respiratory Rate 16 Blood Pressure [Le ft Arm] Pulse Oximetry Oxygen Delivery Me thod OB - DS: Summary Hospital Course Hospital Course: Amaris is a 34 y.o. G 4 P 4 who was admitted to L & D for IOL @ 38 w.? She had a NVD for 1st twin and section for 2nd twin indication for CS cord prolapse second twin with a T incision, which was otherwise uncomplicated.. The patient feels well.? The pain is well controlled with current medications. She has no new complaints.?Feels gas pains from surgery have resolved. She is breast feeding and reports both infants are feeding well. the patient has done well.? States mood is well and feels ready to return home. Vitals have been stable.? She has remained afebrile.? Has a good appetite, is tolerating a general diet.? She is voiding without difficulty.? She is passing gas and has had a loose bowel movement.? She is ambulating and denies any dizziness.? Has small amount of rubra lochia which she states is subsiding. She is Planning abstinence and condoms . ?? plan:? Discharge home with twin infants.? Follow up in 2 weeks and 6 weeks.? , may see if needed? Hgb 9.7. Iron supplement ordered orally every other day Other Labs WNL Enc hydration, nourishment, rest. Call for signs/symptoms of preeclampsia, excess lochia, signs of infection, uncontrolled pain. Jayce Bundy APRN, CNM, was present for visit and have reviewed and agree with documentation by the Certified Nurse Midwifery Student, Fauzia Pereyra.? Peripartum Data delivery method: Primary C/S; Labored (1st baby born vaginally, 2nd by emergent d/t prolapsed cord) Laceration description: None Episiotomy description: None Procedures: Procedures Operation Date: 10/10/24 11:00 Actual Procedure Side Surgeon p Vaginal delivery baby A, delivery baby B due to cord prolapse and malposition Phyllis Garcia MD complications: none Infant A Infant Gender: Male Discharge Plan: Home Stevenson Infant B Infant Gender: Male Infant Discharge Plan: Home Status at Discharge Overall status at discharge: patient is progressing back to baseline Time Spent with Patient Time attestation: Total time spent providing and/or coordinating discharge services: Time spent: Less than 30 minutes Discharge Plan Discharge Disposition: Home, Self-Care Date of Admission: 10/09/24 15:56 Attending Provider on Discharge: Annalisa Downing Consulting Providers: Phyllis Garcia Primary Care Provider: Provider,Not a Local Condition: Stable Anticipated Discharge Date/Time: 10/13/24 12:00 Discharge Medications: New ibuprofen 600 mg Tablet 600 mg PO Q6H PRN (Reason: Pain) Qty: 30 0RF oxycodone 5 mg Tablet 5 - 10 mg PO 3XD PRN (Reason: Pain) Qty: 20 0RF Continued prenat.vits,toribio,zsx-binu-badcu Tablet 1 tab PO QDAY magnesium 200 mg tablet 200 mg PO QDAY ferrous sulfate 325 mg (65 mg iron) tablet 325 mg PO Q OTHER DAY docusate sodium 100 mg capsule 100 mg PO QDAY omeprazole 20 mg capsule,delayed release(DR/EC) 20 mg PO DAILY Discontinued aspirin [Adult Low Dose Aspirin] 81 mg tablet,delayed release (DR/EC) 81 mg PO QDAY Discharge Orders: Discharge Order (Routine); Ordered 10/13/24 Ordered By: Annalisa Downing Patient Education: OB Stevenson [facility], OB Over the Counter Medication Information, OB /Breast Feeding, OB Vaginal/Breast Feeding Additional Instructions: Discharge instructions were reviewed with the patient including signs and symptoms of infection and home going medications Lifting Restrictions: 20 pounds for 6 weeks No not submerge incision under water X 2 weeks? Nothing vaginally for 6 weeks: no tampons or intercourse Do not drive while taking narcotic pain medication(s) Off Work or School for 6 weeks Symptoms to report to doctor: * Bleeding that saturates more than one pad per hour * Passing clots larger than the size of a golf ball * Pain not relieved by prescribed medication * Fever above 100.4 degrees Fahrenheit * A foul vaginal odor * Difficulty in emotions, mood, and functions * Thoughts of hurting yourself and/or * Painful, reddened area in your breast * Any drainage, redness, or tenderness in your IV/epidural site * Severe headache that doesn't improve after taking medications * Changes in vision, including temporary loss of vision, blurred vision, and/or light sensitivity * Upper abdominal pain (usually under ribs on the right side) * Decrease in urination or painful, frequent urinating * Chest pain * Shortness of breath * Tenderness or pain with redness and/swelling in the calf(s) of your leg 2-week visit: incision check, discuss feeding concerns, review control options and screen for anxiety/depression. 6-week visit for an annual exam. consultation services are available to all mothers and babies for the first year after delivery.? To make an appointment, please call [phone]. Discharge instructions were reviewed with the patient including signs and symptoms of infection and home going medications Activity Level: Activity as Tolerated and No strenuous activity Discharge Diet: Regular Follow Up Appointments: [facility] [Provider Group] Forms: buuteeq Info Instructions Documented by User: Fauzia Pereyra 10/13/24 09:11 DS: Diagnosis Discharge Diagnosis (1) Status post emergency section: Status: Acute Problem details: Emergency for 2nd coming twin for indication of cord prolapse 10/10/2024. T-incision. (2) Anemia due to acute blood loss: Status: Acute (3) Lactating mother: Status: Acute (4) care following delivery: Status: Acute Exam Narrative: Exam Narrative: GENERAL APPEARANCE:? normal affect, alert, no distress MOOD:? appropriate CHEST:? clear to auscultation HEART:? regular rate and rhythm ABDOMEN:? soft, non-tender the uterine fundus is at Umbilicus, Midline and is appropriate for the stage of recovery. EXTREMITIES:? normal and R lower extremity trace edema Incision: Durabond, healing well, no surrounding erythema, abnormal induration, odor or discharge GI: Common normals: non-tender Inspection: normal to inspection Auscultation: hyperactive bowel sounds : Uterus: U/U OB - DS: Summary Hospital Course Hospital Course: Amaris is a 34 y.o. G 4 P 4 who was admitted to L & D for IOL @ 38 w.? She had a NVD for 1st twin and section for 2nd twin indication for CS cord prolapse second twin, which was otherwise uncomplicated.. The patient feels well.? The pain is well controlled with current medications. She has no new complaints.?Feels gas pains from surgery have resolved. She is breast feeding and reports both infants are feeding well. the patient has done well.? States mood is well and feels ready to return home. Vitals have been stable.? She has remained afebrile.? Has a good appetite, is tolerating a general diet.? She is voiding without difficulty.? She is passing gas and has had a loose bowel movement.? She is ambulating and denies any dizziness.? Has small amount of rubra lochia which she states is subsiding. She is unsure at this moment on the plan for prevention.? plan:? Discharge home with twin infants.? Follow up in 2 weeks and 6 weeks.? , may see if needed? Hgb 9.7. Iron supplement ordered orally every other day Labs WNL Follow up in 2 weeks Call for signs/symptoms of preeclampsia, excess lochia, signs of infection, uncontrolled pain. Jayce Bundy APRN, CNM, was present for visit and have reviewed and agree with documentation by the Certified Nurse Midwifery Student, Fauzia Pereyra.? Discharge Plan Discharge Disposition: Home, Self-Care Date of Admission: 10/09/24 15:56 Attending Provider on Discharge: Annalisa Downing Consulting Providers: Phyllis Garcia Primary Care Provider: Provider,Not a Local Condition: Stable Anticipated Discharge Date/Time: 10/13/24 12:00 Discharge Medications: New ibuprofen 600 mg Tablet 600 mg PO Q6H PRN (Reason: Pain) Qty: 30 0RF oxycodone 5 mg Tablet 5 - 10 mg PO 3XD PRN (Reason: Pain) Qty: 20 0RF Continued prenat.vits,toribio,[id number]-[id number] Tablet 1 tab PO QDAY magnesium 200 mg tablet 200 mg PO QDAY ferrous sulfate 325 mg (65 mg iron) tablet 325 mg PO Q OTHER DAY docusate sodium 100 mg capsule 100 mg PO QDAY omeprazole 20 mg capsule,delayed release(DR/EC) 20 mg PO DAILY Discontinued aspirin [Adult Low Dose Aspirin] 81 mg tablet,delayed release (DR/EC) 81 mg PO QDAY Discharge Orders: Discharge Order (Routine); Ordered 10/13/24 Ordered By: Annalisa Downing Patient Education: OB [facility], OB Over the Counter Medication Information, OB /Breast Feeding, OB Vaginal/Breast Feeding Additional Instructions: Discharge instructions were reviewed with the patient including signs and symptoms of infection and home going medications Lifting Restrictions: 20 pounds for 6 weeks No not submerge incision under water X 2 weeks? Nothing vaginally for 6 weeks: no tampons or intercourse Do not drive while taking narcotic pain medication(s) Off Work or School for 6 weeks Symptoms to report to doctor: * Bleeding that saturates more than one pad per hour * Passing clots larger than the size of a golf ball * Pain not relieved by prescribed medication * Fever above 100.4 degrees Fahrenheit * A foul vaginal odor * Difficulty in emotions, mood, and functions * Thoughts of hurting yourself and/or * Painful, reddened area in your breast * Any drainage, redness, or tenderness in your IV/epidural site * Severe headache that doesn't improve after taking medications * Changes in vision, including temporary loss of vision, blurred vision, and/or light sensitivity * Upper abdominal pain (usually under ribs on the right side) * Decrease in urination or painful, frequent urinating * Chest pain * Shortness of breath * Tenderness or pain with redness and/swelling in the calf(s) of your leg 2-week visit: incision check, discuss feeding concerns, review control options and screen for anxiety/depression. 6-week visit for an annual exam. consultation services are available to all mothers and babies for the first year after delivery.? To make an appointment, please call [phone]. Discharge instructions were reviewed with the patient including signs and symptoms of infection and home going medications Activity Level: Activity as Tolerated and No strenuous activity Discharge Diet: Regular Follow Up Appointments: [facility] [Provider Group] Forms: buuteeq Info Instructions
[2024-10-13] MEDS: FERROUS SULFATE 325 MG TABLET PO (08:18)
== END 2024-10-13 12:00 | disposition home or self-care (01) | DRG 540 ==
PROVIDERS: Obstetrics & Gynecology; Admitting Provider Obstetrics & Gynecology; Visit Provider Obstetrics & Gynecology
PROC: 10D00Z1 Extraction of Products of Conception, Low, Open Approach (ICD-10-PCS; CPT 59514; principal; 2024-10-10 10:45)
DX: O40.3XX2 Polyhydramnios, third trimester, fetus 2 (principal); O30.043 Twin pregnancy, dichorionic/diamniotic, third trimester; O31.8X32 Other complications specific to multiple gestation, third trimester, fetus 2; O32.1XX2 Maternal care for breech presentation, fetus 2; O69.0XX2 Labor and delivery complicated by prolapse of cord, fetus 2; O76 Abnormality in fetal heart rate and rhythm complicating labor and delivery; G89.18 Other acute postprocedural pain; R10.10 Upper abdominal pain, unspecified; O90.81 Anemia of the puerperium; D62 Acute posthemorrhagic anemia; Z3A.38 38 weeks gestation of pregnancy; Z37.2 Twins, both liveborn
CPT/HCPCS: 01967; 01968; 36415; 59200; 64488; 74018; 76942; 82570; 84156; 84450; 84460; 84520; 85018; 85025; 85027; 86592; 86850; 86900; 86901; 88307; 99140; A4314; A9270; C1726; J0456; J0665; J0666; J0690; J1100; J1885; J2371; J2405; J2590; J2795; J3010; J7120